=== PATIENT | male | born 1940 | race Hispanic/Latino ===

== ENCOUNTER 2016-10-10 11:50 | Inpatient (IN) | payer MEDICARE, OTHER ==
[2016-10-10 12:16] VITALS: BMI 29.6
[2016-10-10] MEDS ORDERED: Sodium Chloride 0.9% 500 ML IV ONE (12:18)
[2016-10-10] MEDS ORDERED: Morphine 4 mg/ml ISec IVP STA (12:18)
--- NOTE | 2016-10-10 12:21 | ED PDOC ---
Arrival/HPI - General Chief Complaint: Abdominal Pain Time Seen by Provider: 10/10/16 12:08 Historian: Patient - History of Present Illness Narrative History of Present Illness (Text): 10/10/16 12:18 A 76 year old male, whose past medical history includes diabetes, neuropathy, atrial fibrillation and GI bleed, presents to the emergency department complaining of lower abdominal pain for the past 4 days. Patient notes nausea and 1 episode of non-bilious non-bloody vomiting. Patient denies any fever, diarrhea, urinary symptoms, chest pain, shortness of breath or any other complaints. Patient regularly takes Coumadin. PMD: Dr. Cabrera Time/Duration: Other (4 days) Symptom Course: Unchanged Quality: Other Context: Home Associated Symptoms (Text): 10/10/16 13:04 4 day history of right lower quadrant abdominal pain along with anorexia and nausea and one episode of vomiting. Approximately one month ago patient had unrevealing EGD and colonoscopy secondary to rectal bleeding. He had been on xarelto for atrial fibrillation. Switched to Coumadin. Past Medical History - Provider Review Nursing Documentation Reviewed: Yes - Infectious Disease Hx of Infectious Diseases: None - Tetanus Immunization Tetanus Immunization: Unknown - Cardiac Hx Hypertension: Yes Hx Pacemaker: No Other/Comment: cardiac problem - Pulmonary Hx Respiratory Disorders: No - Neurological Hx Paralysis: No - HEENT Hx HEENT Disorder: Yes Hx Cataracts: Yes (BILATERAL SURGERY) - Renal Hx Renal Disorder: No - Endocrine/Metabolic Hx Endocrine Disorders: Yes Hx Diabetes Mellitus Type 1: Yes - Hematological/Oncological Hx Blood Transfusions: Yes (2013) Hx Blood Transfusion Reaction: No - Integumentary Hx Dermatological Disorder: No Other/Comment: ble redness and discolorations - Musculoskeletal/Rheumatological Hx Musculoskeletal Disorders: No - Gastrointestinal Hx Gastrointestinal Disorders: Yes (GI BLEED) Other/Comment: colonoscopy, gi bleed - Genitourinary/Gynecological Hx Genitourinary Disorders: No - Psychiatric Hx Emotional Abuse: No Hx Physical Abuse: No Hx Substance Use: No - Surgical History Other/Comment: right clavical cyst removed - Anesthesia Hx Anesthesia Reactions: No Hx Malignant Hyperthermia: No - Suicidal Assessment Feels Threatened In Home Enviroment: No Family/Social History - Physician Review Nursing Documentation Reviewed: Yes Family/Social History: No Known Family HX Smoking Status: Former Smoker (Quit smoking one year ago) Hx Alcohol Use: Yes (4 DRINKS A WEEK) Hx Substance Use: No Hx Substance Use Treatment: No Allergies/Home Meds Allergies/Adverse Reactions: Allergies No Known Allergies Allergy (Verified 12/28/13 12:16) Home Medications: Home Meds Medication Instructions Recorded Confirmed diltiaZEM CD [Cardizem CD] 240 mg PO DAILY 02/18/13 10/10/16 Losartan [Cozaar] 50 mg PO DAILY 12/28/13 10/10/16 Pioglitazone [Actos] 45 mg PO DAILY 09/15/16 10/10/16 Pravastatin Sodium [Pravachol] 40 mg PO DAILY 09/15/16 10/10/16 Warfarin [Coumadin] 5 mg PO DAILY 09/15/16 10/10/16 glyBURIDE [Glyburide] 5 mg PO TID 09/15/16 10/10/16 Review of Systems - Physician Review All systems were reviewed & negative as marked: Yes - Review of Systems Constitutional: Fatigue. absent: Weight Change, Fevers Respiratory: absent: SOB, Cough, Sputum, Wheezing Cardiovascular: absent: Chest Pain, Palpitations, Syncope Gastrointestinal: Abdominal Pain, Nausea, Vomiting. absent: Diarrhea Genitourinary Male: absent: Dysuria, Frequency, Hematuria, Urinary Output Changes Neurological: absent: Headache, Dizziness Physical Exam Vital Signs Reviewed: Yes Vital Signs Temp Pulse Resp BP Pulse Ox 10/10/16 14:20 97.6 F 78 18 120/62 99 10/10/16 12:07 97.8 F 86 21 113/59 L 99 10/10/16 12:06 97.6 F 103 H 18 113/59 L 99 Temperature: Afebrile Blood Pressure: Normal Pulse: Regular Respiratory Rate: Normal Appearance: Positive for: Well-Appearing, Non-Toxic, Uncomfortable Pain Distress: Mild Mental Status: Positive for: Alert and Oriented X 3 Finger Stick Blood Glucose: 178 - Systems Exam Head: Present: Atraumatic, Normocephalic Pupils: Present: PERRL Extroacular Muscles: Present: EOMI Conjunctiva: Present: Normal Mouth: Present: Moist Mucous Membranes Pharnyx: No: ERYTHEMA, EXUDATE, TONSILS ENLARGED Respiratory/Chest: Present: Clear to Auscultation, Good Air Exchange. No: Respiratory Distress, Accessory Muscle Use Cardiovascular: Present: Normal S1, S2, Irregular Rhythm, Other (Normal rate). No: Murmurs Abdomen: Present: Tenderness (Mild RLQ tenderness), Normal Bowel Sounds, Guarding (Voluntary guarding). No: Distention, Peritoneal Signs, Rebound Upper Extremity: Present: Normal Inspection. No: Cyanosis, Edema Lower Extremity: Present: Normal Inspection. No: Edema Neurological: Present: GCS=15, CN II-XII Intact, Speech Normal, Motor Func Grossly Intact Skin: Present: Warm, Dry, Normal Color. No: Rashes Psychiatric: Present: Alert, Oriented x 3, Normal Insight, Normal Concentration Medical Decision Making ED Course and Treatment: 10/10/16 12:18 Impression: A 76 year old male with lower abdominal pain. Patient notes nausea and 1 episode of vomiting. On exam, mild RLQ tenderness. Plan: -- Abdomen and pelvis CT -- Chest xray -- EKG -- Labs -- Urinalysis -- Morphine, IV fluids and Zofran -- Reassess and disposition Progress Notes: 10/10/16 13:06 EKG shows atrial fibrillation rate approximately 80 with a right bundle branch block which is old when compared with EKG of 04/25/2015 Report Date : 10/10/2016 13:48:12 PROCEDURE: CT Abdomen and Pelvis without intravenous contrast Dictator : Young Keller MD IMPRESSION: Acute appendicitis. Small bowel dilatation most likely due to ileus Report Date : 10/10/2016 13:57:57 Procedure: Chest xray Dictator : Renea Tamayo MD IMPRESSION: No active pulmonary disease. Persistent cardiomegaly. 10/10/16 14:01 Dr. Jaramillo requests PMD admit. - Lab Interpretations Lab Results: 10/10/16 12:22 10/10/16 12:22 Lab Results 10/10/16 12:22: WBC 10.2 D, RBC 3.63, Hgb 10.8 L, Hct 31.7 L, MCV 87.3, MCH 29.8, MCHC 34.1, RDW 14.1, Plt Count 404, MPV 9.8, Gran % 85.4 H, Lymph % (Auto ) 6.1 L, [place] % (Auto) 8.1 H, Eos % (Auto) 0.3 L, Baso % (Auto) 0.1, Gran # 8.69 H, Lymph # 0.6 L, [place] # 0.8 H, Eos # 0.0, Baso # 0.01, PT 32.6 H*, INR 3.02 H, APTT 51.7 H, Sodium 136, Potassium 3.9, Chloride 99, Carbon Dioxide 23, Anion Gap 18, BUN 91 H, Creatinine 4.6 H, Est GFR ( Amer) 15, Est GFR ( Non-Af Amer) 12, Random Glucose 167 H, Calcium 8.9, Total Bilirubin 0.9, AST 57 , ALT 31, Alkaline Phosphatase 90, Lactate Dehydrogenase 558, Total Creatine Kinase 493 H, CK-MB (CK-2) 8.3 H, CK-MB (CK-2) % 1.7 L, Troponin I 0.03 D, Total Protein 7.6, Albumin 3.6, Globulin 4.0, Albumin/Globulin Ratio 0.9 L, Amylase 37, Lipase 62 10/10/16 11:59: POC Glucose (mg/dL) 178 H I have reviewed the lab results: Yes - RAD Interpretation Radiology Orders: 10/10/16 12:16 ABD & PELVIS W/O PO OR IV CONT [CT] Stat 10/10/16 12:17 CHEST PORTABLE [RAD] Stat Chest one view shows cardiomegaly with increased markings. Channel Sales Manager: ED Physician - Medication Orders Current Medication Orders: Ampicillin Sodium/Sulbactam (Sodium 3 gm/ Sodium Chloride) 100 mls @ 100 mls/ hr IVPB STAT STA PRN Reason: Protocol Stop: 10/10/16 14:58 Discontinued Medications Sodium Chloride (Sodium Chloride 0.9%) 500 mls @ 500 mls/hr IV ONCE ONE Stop: 10/10/16 13:17 Last Admin: 10/10/16 12:34 Dose: 500 MLS/HR eMAR Start Stop Document 10/10/16 12:34 OCS (Rec: 10/10/16 12:34 OCS [id number]) Intravenous Solution Start Date 10/10/16 Start Time 12:34 Morphine Sulfate (Morphine) 4 mg IVP STAT STA Stop: 10/10/16 12:19 Last Admin: 10/10/16 12:34 Dose: 4 MG MAR Pain Assessment Document 10/10/16 12:34 OCS (Rec: 10/10/16 12:34 OCS [id number]) Pain Reassessment Is this a pain reassessment? Yes Presence of Pain Presence of Pain Yes Pain Scale Used Pain Scale Used Numeric Location Pain Location Body Site Abdomen Description Description Constant IVP Administration Document 10/10/16 12:34 OCS (Rec: 10/10/16 12:34 [id number] Charges for Administration # of IVP Administrations 1 Ondansetron HCl (Zofran Inj) 4 mg IVP ONCE ONE Stop: 10/10/16 12:19 Last Admin: 10/10/16 12:34 Dose: Not Given Non-Admin Reason: Patient Refused IVP Administration Document 10/10/16 12:34 OCS (Rec: 10/10/16 12:34 [id number]) Charges for Administration # of IVP Administrations 1 - Scribe Statement The provider has reviewed the documentation as recorded by the Eduardoibkatie Galvan Provider Scribe Attestation: All medical record entries made by the Scribe were at my direction and personally dictated by me. I have reviewed the chart and agree that the record accurately reflects my personal performance of the history, physical exam, medical decision making, and the department course for this patient. I have also personally directed, reviewed, and agree with the discharge instructions and disposition. Disposition/Present on Arrival - Present on Arrival Any Indicators Present on Arrival: No History of DVT/PE: No History of Uncontrolled Diabetes: No Urinary Catheter: No History of Decub. Ulcer: No History Surgical Site Infection Following: None - Disposition Have Diagnosis and Disposition been Completed?: Yes Diagnosis: Acute appendicitis, Renal failure, Dehydration, Coagulopathy Disposition: HOSPITALIZED Disposition Time: 14:01 Patient Plan: Admission Patient Problems: Current Active Problems Problem Status Diagnosed Acute appendicitis Acute Coagulopathy Acute Dehydration Acute Renal failure Acute Condition: SERIOUS Referrals: Paris Goyal MD [Primary Care Provider] - Follow up with primary
[2016-10-10 12:44] LABS: ADD MANUAL DIFF? NO
[2016-10-10 12:52] LABS: BASO # 0.01 K/mm3 (0.0-2.0); BASO % 0.1 % (0.0-3.0); EOS % 0.3 % (1.5-5.0); GRAN # 8.69 (1.4-6.5); GRAN % 85.4 % (50.0-68.0); HEMATOCRIT 31.7 % (42.0-52.0); LYMPH # 0.6 (1.2-3.4); LYMPH % 6.1 % (22.0-35.0); MEAN CELL VOLUME 87.3 fL (80.0-105.0); MEAN CORPUSCULAR HEMOGLOBIN 29.8 pg (25.0-35.0); MEAN CORPUSCULAR HGB CONC 34.1 g/dl (31.0-37.0); MEAN PLATELET VOLUME 9.8 fl (7.0-11.0); MONO # 0.8 (0.1-0.6); MONO % 8.1 % (1.0-6.0); PLATELET COUNT 404 10^3/uL (120.0-450.0); RED CELL DISTRIBUTION WIDTH 14.1 % (11.5-14.5); WHITE BLOOD COUNT 10.2 10^3/ul (4.5-11.0)
[2016-10-10 13:01] LABS: ALB/GLOB RATIO 0.9 (1.1-1.8); BILIRUBIN,TOTAL 0.9 mg/dL (0.2-1.3); CALCIUM 8.9 mg/dL (8.4-10.5); INR 3.02 (0.93-1.08); PARTIAL THROMBOPLASTIN TIME 51.7 Seconds (23.7-30.8); POTASSIUM 3.9 mmol/L (3.6-5.0); TOTAL PROTEIN 7.6 g/dL (5.8-8.3)
[2016-10-10 13:10] LABS: TROPONIN I 0.03 ng/mL
--- NOTE | 2016-10-10 13:50 | CT ---
PROCEDURE: CT Abdomen and Pelvis without intravenous contrast HISTORY: RLQ pain COMPARISON: None. TECHNIQUE: Without contrast. Contrast Dose: Radiation dose: Total exam DLP = 977 mGy-cm. FINDINGS: LOWER THORAX: Unremarkable. LIVER: Unremarkable. No gross lesion or ductal dilatation. GALLBLADDER AND BILE DUCTS: Unremarkable. PANCREAS: Unremarkable. No gross lesion or ductal dilatation. SPLEEN: Unremarkable. ADRENALS: Unremarkable. No mass. KIDNEYS AND URETERS: There is an 18 mm stone in the upper pole of the right kidney. There is a large cyst in the left kidney. No evidence of hydronephrosis VASCULATURE: Unremarkable. No aortic aneurysm. BOWEL: Multiple mildly dilated fluid-filled loops of small bowel are seen which probably represent an ileus related to the inflammation in the right lower quadrant secondary to appendicitis APPENDIX: The appendix is dilated and there are severe inflammatory changes surrounding the appendix optometric assistant with acute appendicitis. There is no evidence of abscess. PERITONEUM: Unremarkable. No free fluid. No free air. LYMPH NODES: Unremarkable. No enlarged lymph nodes. BLADDER: Unremarkable. REPRODUCTIVE: Unremarkable. BONES: No acute fracture. OTHER FINDINGS: None. IMPRESSION: Acute appendicitis. Small bowel dilatation most likely due to ileus
[2016-10-10] MEDS ORDERED: Ampicillin/Sulbactam 3 GM in Sodium Chloride 0.9% 100 ML IVPB STA (13:59)
--- NOTE | 2016-10-10 13:59 | RAD ---
HISTORY: ap COMPARISON: 04/25/2015 FINDINGS: LUNGS: The lungs are clear. There is linear scarring in the right mid lung. PLEURA: No significant pleural effusion identified, no pneumothorax apparent. CARDIOVASCULAR: The heart is enlarged. Atherosclerotic aortic arch calcifications are present. . OSSEOUS STRUCTURES: No significant abnormalities. VISUALIZED UPPER ABDOMEN: Normal. OTHER FINDINGS: None. IMPRESSION: No active pulmonary disease. Persistent cardiomegaly.
--- NOTE | 2016-10-10 15:02 | CP.PCM.CON ---
History of Present Illness - History of Present Illness History of Present Illness: SURGERY CONSULT NOTE FOR DR. STANTON 76M present to [place] [facility] with abdominal pain. Patient states pain started on Thursday and has been increasing in severity. He describes it has a bad cramp mainly located in the right lower quadrant. Pain does not radiate anywhere. He has never had this type of pain before. He states it is associated with nausea and one bout of non bilious/non bloody vomiting. Patient admits to a lot of diarrhea which occurred yesterday. He admits to note having solid food to eat since Thursday. PMH: A-fib, KILLIAN, Diverticulitis, GI bleed, Anemia, Cecal AVM PSH: sebaceous cyst removal, Colonoscopy Social: quit tobacco two years ago, social alcohol, denies illicit drugs Allergies: NKDA Past Patient History - Infectious Disease Hx of Infectious Diseases: None - Tetanus Immunizations Tetanus Immunization: Unknown - Past Social History Smoking Status: Former Smoker (Quit smoking one year ago) - CARDIAC Hx Hypertension: Yes Hx Pacemaker: No Other/Comment: cardiac problem - PULMONARY Hx Respiratory Disorders: No - NEUROLOGICAL Hx Paralysis: No - HEENT Hx HEENT Problems: Yes Hx Cataracts: Yes (BILATERAL SURGERY) - RENAL Hx Chronic Kidney Disease: No - ENDOCRINE/METABOLIC Hx Endocrine Disorders: Yes Hx Diabetes Mellitus Type 1: Yes - HEMATOLOGICAL/ONCOLOGICAL Hx Blood Transfusions: Yes (2013) Hx Blood Transfusion Reaction: No - INTEGUMENTARY Hx Dermatological Problems: No Other/Comment: ble redness and discolorations - MUSCULOSKELETAL/RHEUMATOLOGICAL Hx Musculoskeletal Disorders: No - GASTROINTESTINAL Hx Gastrointestinal Disorders: Yes (GI BLEED) Other/Comment: colonoscopy, gi bleed - GENITOURINARY/GYNECOLOGICAL Hx Genitourinary Disorders: No - PSYCHIATRIC Hx Emotional Abuse: No Hx Physical Abuse: No Hx Substance Use: No - SURGICAL HISTORY Other/Comment: right clavical cyst removed - ANESTHESIA Hx Anesthesia Reactions: No Hx Malignant Hyperthermia: No Meds Allergies/Adverse Reactions: Allergies Allergy/AdvReac Type Severity Reaction Status Date / Time No Known Allergies Allergy Verified 12/28/13 12:16 - Medications Medications: Current Medications Ampicillin Sodium/Sulbactam (Sodium 3 gm/ Sodium Chloride) 100 mls @ 100 mls/ hr IVPB STAT STA PRN Reason: Protocol Stop: 10/10/16 14:58 Physical Exam - Constitutional Appears: Non-toxic, No Acute Distress - Head Exam Head Exam: ATRAUMATIC - Eye Exam Eye Exam: EOMI, PERRL Pupil Exam: PERRL - ENT Exam ENT Exam: Mucous Membranes Moist - Respiratory Exam Respiratory Exam: Clear to Auscultation Bilateral, NORMAL BREATHING PATTERN - Cardiovascular Exam Cardiovascular Exam: REGULAR RHYTHM, +S1, +S2 - GI/Abdominal Exam GI & Abdominal Exam: Guarding, Soft, Tenderness. absent: Distended, Firm, Rebound, Rigid Additional comments: Tenderness on palpation of right lower quadrant of abdomen - Extremities Exam Additional comments: decrease b/l lower extremity sensation - Neurological Exam Neurological exam: Alert, Oriented x3 - Psychiatric Exam Psychiatric exam: Normal Affect, Normal Mood - Skin Skin Exam: Dry, Intact, Normal Color, Warm Results - Vital Signs Recent Vital Signs: Last Vital Signs Temp 97.6 F 10/10/16 14:20 Pulse 78 10/10/16 14:20 Resp 18 10/10/16 14:20 BP 120/62 10/10/16 14:20 Pulse Ox 99 10/10/16 14:20 - Labs Result Diagrams: 10/13/16 06:30 10/13/16 06:30 Labs: Laboratory Results - last 24 hr 10/10/16 10/10/16 11:59 12:22 WBC 10.2 D RBC 3.63 Hgb 10.8 L Hct 31.7 L MCV 87.3 MCH 29.8 MCHC 34.1 RDW 14.1 Plt Count 404 MPV 9.8 Gran % 85.4 H Lymph % (Auto) 6.1 L [place] % (Auto) 8.1 H Eos % (Auto) 0.3 L Baso % (Auto) 0.1 Gran # 8.69 H Lymph # 0.6 L [place] # 0.8 H Eos # 0.0 Baso # 0.01 PT 32.6 H* INR 3.02 H APTT 51.7 H Sodium 136 Potassium 3.9 Chloride 99 Carbon Dioxide 23 Anion Gap 18 BUN 91 H Creatinine 4.6 H Est GFR ( Amer) 15 Est GFR (Non-Af Amer) 12 POC Glucose (mg/dL) 178 H Random Glucose 167 H Calcium 8.9 Total Bilirubin 0.9 AST 57 ALT 31 Alkaline Phosphatase 90 Lactate Dehydrogenase 558 Total Creatine Kinase 493 H CK-MB (CK-2) 8.3 H CK-MB (CK-2) % 1.7 L Troponin I 0.03 D Total Protein 7.6 Albumin 3.6 Globulin 4.0 Albumin/Globulin Ratio 0.9 L Amylase 37 Lipase 62 Assessment & Plan - Assessment and Plan (Free Text) Assessment: 76M presents with abdominal pain 2/[address]: acute appendicitis, possible ileus Plan: - NPO, IVF - pain control, antibiotics, anti-pyretic, anti-emetics - Reverse Coumadin effects, INR currently 3.02 - Plan for OR tomorrow Further recs discuss with Dr. Clint Davis, PGY1
[2016-10-10] MEDS: Sodium Chloride 0.9% 1,000 ML IV SCH (16:18)
--- NOTE | 2016-10-10 16:43 | CP.PCM.HP ---
<Dwight Streeter - Last Filed: 10/10/16 17:35> History of Present Illness - History of Present Illness History of Present Illness: CC: "Severe lower abdominal pain, nausea" HPI: Pt is a 76 year old male with a PMHx of diabetes mellitus, gastritis, peripheral neuropathy, foot drop, atrial fibrillation, diverticulosis, dyslipidemia, HTN, prostate cancer, hemorrhoids, and cecal arteriovenous malformation who presented to the ED with complaints of severe, diffuse lower abdominal pain particularly in the right lower quadrant for a duration of 4 days. Pt also reports that he vomited yesterday and has been having diarrhea. Pt is accompanied at bedside by son and daughter. Pt also reports that he has been experiencing chills over the past week. Pt reports that he has not had an appetite and thus has not been eating. He reports that he has been drinking water. He also reports that on Thursday he was in the bathroom vomiting and fell to his knees and was unable to get up because of his foot drop. He reports that he laid on the floor for about 7 hours that day. He also reports that he recently had a polyp removed by GI, Dr. Goyal, last week. According to the pt , Dr. Goyal advised the pt to decrease his warfarin by half until he sees his PMD, Dr. Corcoran, to adjust the medication to bring INR to therapeutic levels. Pt also reports that he has not urinated since this morning. Pt denies fever, chest pain, shortness of breath, dizziness, headache. PMD: Dr. Corcoran PMHx: Diabetes mellitus, gastritis, peripheral neuropathy, foot drop, atrial fibrillation, diverticulosis, dyslipidemia, HTN, prostate cancer, hemorrhoids, and cecal arteriovenous malformation Home Medications: Cardizem 240 mg po qd, losartan 50 mg po qd, warfarin 5 mg p oqd, pravastatin 40 mg po qd, actos 45 mg po qd, glyburide 5 mg po tid Allergies: NKDA Past Surgical Hx: Anal fissure repair, hemorrhoids Social Hx: former heavy smoker (2-3 packs/day), reports that he quit 2 years ago ; former heavy drinker, reports that he has a few drinks 2 days a week now; denies illicit drug use Family Hx: Diabetes, HTN Present on Admission - Present on Admission Any Indicators Present on Admission: No Review of Systems - Constitutional Constitutional: Chills. absent: Fever - EENT Eyes: absent: Blurred Vision, Change in Vision Ears: absent: Decreased Hearing, Dizziness Nose/Mouth/Throat: Dry Mouth. absent: Nasal Discharge - Cardiovascular Cardiovascular: Irregular Heart Rhythm. absent: Chest Pain, Dyspnea - Respiratory Respiratory: absent: Cough, Dyspnea, Hemoptysis - Gastrointestinal Gastrointestinal: Abdominal Pain, Bloating, Diarrhea, Dyspepsia, Vomiting. absent: Constipation, Dysphagia, Melena - Genitourinary Genitourinary: Difficulty Urinating - Musculoskeletal Musculoskeletal: Abnormal Gait, Muscle Weakness. absent: Tingling - Integumentary Integumentary: absent: Rash, Swelling - Neurological Neurological: absent: Dizziness, Headaches, Syncope - Psychiatric Psychiatric: absent: Anxiety - Hematologic/Lymphatic Hematologic: absent: Easy Bruising Past Patient History - Infectious Disease Hx of Infectious Diseases: None - Tetanus Immunizations Tetanus Immunization: Unknown - Past Social History Smoking Status: Former Smoker (Quit smoking one year ago) - CARDIAC Hx Hypertension: Yes Hx Pacemaker: No Other/Comment: cardiac problem - PULMONARY Hx Respiratory Disorders: No - NEUROLOGICAL Hx Paralysis: No - HEENT Hx HEENT Problems: Yes Hx Cataracts: Yes (BILATERAL SURGERY) - RENAL Hx Chronic Kidney Disease: No - ENDOCRINE/METABOLIC Hx Endocrine Disorders: Yes Hx Diabetes Mellitus Type 1: Yes - HEMATOLOGICAL/ONCOLOGICAL Hx Blood Transfusions: Yes (2013) Hx Blood Transfusion Reaction: No - INTEGUMENTARY Hx Dermatological Problems: No Other/Comment: ble redness and discolorations - MUSCULOSKELETAL/RHEUMATOLOGICAL Hx Musculoskeletal Disorders: No - GASTROINTESTINAL Hx Gastrointestinal Disorders: Yes (GI BLEED) Other/Comment: colonoscopy, gi bleed - GENITOURINARY/GYNECOLOGICAL Hx Genitourinary Disorders: No - PSYCHIATRIC Hx Emotional Abuse: No Hx Physical Abuse: No Hx Substance Use: No - SURGICAL HISTORY Other/Comment: right clavical cyst removed - ANESTHESIA Hx Anesthesia Reactions: No Hx Malignant Hyperthermia: No Meds Allergies/Adverse Reactions: Allergies Allergy/AdvReac Type Severity Reaction Status Date / Time No Known Allergies Allergy Verified 12/28/13 12:16 Physical Exam - Constitutional Appears: No Acute Distress - Head Exam Head Exam: ATRAUMATIC, NORMOCEPHALIC - Eye Exam Eye Exam: EOMI, PERRL Pupil Exam: PERRL - ENT Exam ENT Exam: Mucous Membranes Dry. absent: Mucous Membranes Moist - Neck Exam Neck exam: Positive for: Full Rom. Negative for: Lymphadenopathy - Respiratory Exam Respiratory Exam: Prolonged Expiratory Phase. absent: Rales, Rhonchi, Wheezes - Cardiovascular Exam Cardiovascular Exam: Irregular Rhythm, +S1, +S2. absent: Tachycardia, Gallop, Rubs - GI/Abdominal Exam GI & Abdominal Exam: Firm, Hypoactive Bowel Sounds, Tenderness. absent: Distended, Hernia Additional comments: Right lower quadrant tenderness - Extremities Exam Extremities exam: Negative for: pedal edema - Neurological Exam Neurological exam: Alert, Oriented x3 - Psychiatric Exam Psychiatric exam: Normal Affect, Normal Mood - Skin Skin Exam: Normal Color, Warm Results - Vital Signs Recent Vital Signs: Last Vital Signs Temp 97.6 F 10/10/16 14:20 Pulse 78 10/10/16 14:20 Resp 18 10/10/16 14:20 BP 120/62 10/10/16 14:20 Pulse Ox 99 10/10/16 14:20 - Labs Result Diagrams: 10/10/16 12:22 10/10/16 12:22 Labs: Laboratory Results - last 24 hr 10/10/16 10/10/16 11:59 12:22 WBC 10.2 D RBC 3.63 Hgb 10.8 L Hct 31.7 L MCV 87.3 MCH 29.8 MCHC 34.1 RDW 14.1 Plt Count 404 MPV 9.8 Gran % 85.4 H Lymph % (Auto) 6.1 L [place] % (Auto) 8.1 H Eos % (Auto) 0.3 L Baso % (Auto) 0.1 Gran # 8.69 H Lymph # 0.6 L [place] # 0.8 H Eos # 0.0 Baso # 0.01 PT 32.6 H* INR 3.02 H APTT 51.7 H Sodium 136 Potassium 3.9 Chloride 99 Carbon Dioxide 23 Anion Gap 18 BUN 91 H Creatinine 4.6 H Est GFR ( Amer) 15 Est GFR (Non-Af Amer) 12 POC Glucose (mg/dL) 178 H Random Glucose 167 H Calcium 8.9 Total Bilirubin 0.9 AST 57 ALT 31 Alkaline Phosphatase 90 Lactate Dehydrogenase 558 Total Creatine Kinase 493 H CK-MB (CK-2) 8.3 H CK-MB (CK-2) % 1.7 L Troponin I 0.03 D Total Protein 7.6 Albumin 3.6 Globulin 4.0 Albumin/Globulin Ratio 0.9 L Amylase 37 Lipase 62 Assessment & Plan - Assessment and Plan (Free Text) Assessment: Acute Appendicitis: Afebrile, nontachycardic No leukocytosis Abd/Pelvis CT - acute appendicitis, small bowel dilatation most likely due to ileus (please see full report) Surgery consulted, Dr. Jaramillo, help appreciated. Pt made NPO Rocephin 1 gm IV qd Flagyl IV q8h NS IVF 125 cc/hr 2 units of FFP ordered as per surgery due to supratherapeutic INR Vitamin K 10 mg IV once Zofran 4 mg IB q4h prn for nausea Morphine 4 mg IVP q4h prn for pain Tylenol 650 mg po q6h prn for fever > 100.4 Cardiology, Dr. Smith, consulted. Help appreciated. Cardiac clearance pending Laparoscopic appendectomy with possibility of open appendectomy planned for tomorrow Coagulopathy: INR -3.02 PT- 32.6 APTT - 51.7 Vitamin K and FFP given Recheck Coag panel tomorrow Coumadin held Acute on Chronic Kidney Injury: Bun/Cr: 91/4.6, increased from baseline and previous admission NS IVF 125 cc/hr Nephrology, Dr. Jin, consulted. Help appreciated. CK - 493 Bladder scan pending Losartan held Diabetes Mellitus: Oral medications held Regular insulin sliding scale Accuchecks Hx of atrial fibrillation: EKG - atrial fibrillation, right bundle branch block Cardizem 240 mg po qd Dyslipidemia: Lipitor 10 mg po din HTN: Losartan held due to acute kidney injury Prophylactic Measures: GI: Protonix 40 mg IV qd DVT: SCDs <Liya Wahl B - Last Filed: 10/11/16 15:24> Results - Vital Signs Recent Vital Signs: Last Vital Signs Temp 99.1 F 10/11/16 13:00 Pulse 83 10/11/16 13:30 Resp 14 10/11/16 13:30 BP 143/55 L 10/11/16 13:30 Pulse Ox 94 L 10/11/16 12:45 - Labs Result Diagrams: 10/11/16 07:45 10/11/16 07:15 Labs: Laboratory Results - last 24 hr 10/10/16 10/10/16 10/10/16 16:37 18:48 22:06 WBC RBC Hgb Hct MCV MCH MCHC RDW Plt Count MPV Gran % Lymph % (Auto) [place] % (Auto) Eos % (Auto) Baso % (Auto) Gran # Lymph # [place] # Eos # Baso # PT INR APTT Sodium Potassium Chloride Carbon Dioxide Anion Gap BUN Creatinine Est GFR ( Amer) Est GFR (Non-Af Amer) POC Glucose (mg/dL) 121 H 44 L Random Glucose Calcium Phosphorus Magnesium Urine Color Urine Appearance Urine pH Ur Specific [place] Urine Protein Urine Glucose (UA) Urine Ketones Urine Blood Urine Nitrate Urine Bilirubin Urine Urobilinogen Ur Leukocyte Esterase Urine RBC Urine WBC Ur Epithelial Cells Urine Bacteria Blood Type AB POSITIVE Antibody Screen Negative BBK History Checked Patient has bt 10/10/16 10/11/16 10/11/16 22:47 00:15 06:38 WBC RBC Hgb Hct MCV MCH MCHC RDW Plt Count MPV Gran % Lymph % (Auto) [place] % (Auto) Eos % (Auto) Baso % (Auto) Gran # Lymph # [place] # Eos # Baso # PT INR APTT Sodium Potassium Chloride Carbon Dioxide Anion Gap BUN Creatinine Est GFR ( Amer) Est GFR (Non-Af Amer) POC Glucose (mg/dL) 167 H Random Glucose Calcium Phosphorus 3.9 Magnesium 2.1 Urine Color Yellow Urine Appearance Clear Urine pH 6.0 Ur Specific [place] 1.020 Urine Protein Trace H Urine Glucose (UA) Negative Urine Ketones Negative Urine Blood Moderate H Urine Nitrate Negative Urine Bilirubin Negative Urine Urobilinogen 0.2 Ur Leukocyte Esterase Negative Urine RBC 2 - 5 Urine WBC 0 - 2 Ur Epithelial Cells 0 - 2 Urine Bacteria Small Blood Type Antibody Screen BBK History Checked 10/11/16 10/11/16 10/11/16 07:15 07:21 07:45 WBC 7.0 D RBC 3.16 L Hgb 9.6 L Hct 27.9 L MCV 88.3 MCH 30.4 MCHC 34.4 RDW 14.2 Plt Count 358 MPV 9.2 Gran % 81.1 H Lymph % (Auto) 8.0 L [place] % (Auto) 9.4 H Eos % (Auto) 1.4 L Baso % (Auto) 0.1 Gran # 5.66 Lymph # 0.6 L [place] # 0.7 H Eos # 0.1 Baso # 0.01 PT 13.3 H INR 1.23 H APTT 35.0 H Sodium 143 Potassium 3.5 L Chloride 110 H Carbon Dioxide 23 Anion Gap 14 BUN 73 H Creatinine 3.3 H Est GFR ( Amer) 22 Est GFR (Non-Af Amer) 18 POC Glucose (mg/dL) 45 L Random Glucose 43 L* D Calcium 8.1 L Phosphorus Magnesium Urine Color Urine Appearance Urine pH Ur Specific [place] Urine Protein Urine Glucose (UA) Urine Ketones Urine Blood Urine Nitrate Urine Bilirubin Urine Urobilinogen Ur Leukocyte Esterase Urine RBC Urine WBC Ur Epithelial Cells Urine Bacteria Blood Type Antibody Screen BBK History Checked 10/11/16 10/11/16 08:21 11:47 WBC RBC Hgb Hct MCV MCH MCHC RDW Plt Count MPV Gran % Lymph % (Auto) [place] % (Auto) Eos % (Auto) Baso % (Auto) Gran # Lymph # [place] # Eos # Baso # PT INR APTT Sodium Potassium Chloride Carbon Dioxide Anion Gap BUN Creatinine Est GFR ( Amer) Est GFR (Non-Af Amer) POC Glucose (mg/dL) 141 H 109 Random Glucose Calcium Phosphorus Magnesium Urine Color Urine Appearance Urine pH Ur Specific [place] Urine Protein Urine Glucose (UA) Urine Ketones Urine Blood Urine Nitrate Urine Bilirubin Urine Urobilinogen Ur Leukocyte Esterase Urine RBC Urine WBC Ur Epithelial Cells Urine Bacteria Blood Type Antibody Screen BBK History Checked Attending/Attestation - Attestation I have personally seen and examined this patient.: Yes I have fully participated in the care of the patient.: Yes I have reviewed all pertinent clinical information: Yes Notes (Text): I have seen and examined patient at bedside with the resident. This is 76 year old male with history of DM-2, gastritis, peripheral neuropathy, foot drop, atrial fibrillation, diverticulosis, dyslipidemia, HTN, prostate cancer, hemorrhoids, cecal AVM, former heavy smoker, anal fissure repair who got admitted for acute appendicitis. Will make patient npo. Start IVF and IV rocephin and flagyl. INR was found to be supratherapeutic. Vitamin K and FFP will be given. Surgery scheduled the patient for OR for tomorrow morning. Also has Acute kidney injury. Will order for urine lytes and consult nephrology. Will hold losartan and oral hypoglycemics. As he has multiple co morbidities, will consult cardiology. Dr Liya Wahl
[2016-10-10] MEDS: metroNIDAZOLE IV 500 mg/100 ml 100 ML IVPB SCH ×2 (16:47→21:32)
[2016-10-10] MEDS: Insulin Reg-MEDIUM-Coverage SC SCH (16:48)
[2016-10-10] MEDS ORDERED: Phytonadione 10 MG in Sodium Chloride 0.9% 50 ML IV ONE (17:13)
[2016-10-10] MEDS: cefTRIAXone 1 gm 100 ML IVPB SCH (17:45)
--- NOTE | 2016-10-10 19:40 | US ---
Indication: Inability to urinate Urinary bladder only/residual urine ultrasound Comparison: CT of the abdomen and pelvis performed 10/10/16 Findings: Prevoid urinary bladder measures approximately 9.2 x 8.9 x 9.9 cm, calculated volume 566.3 mL. Postvoid urinary bladder measures approximately 8.2 x 8.5 x 9.0 cm, calculated volume 326.6 mL. Bilateral ureteral jets were not identified. Examination limited due to patient condition and discomfort. Impression: Limited study. Prevoid urinary bladder volume 566.3 mL; postvoid urinary bladder volume 326.6 mL. Bilateral ureteral jets were not identified.
--- NOTE | 2016-10-10 19:44 | CON ---
DATE: 10/10/2016 REASON FOR CONSULTATION: Atrial fibrillation, preoperative evaluation. The patient is a 76-year-old white male from [place] ancestry, who has a history of chronic atrial fibr illation for the past 3 years. Was placed initially on Xarelto, however, because of recurrent rectal bleeding the patient was taken off Xarelto and was placed on Coumadin. The patient is being followe d by his primary physician and has not seen a slurry mixer yet. The patient presents at this time because of abdominal pain, and diagnosis of acute appendicitis was made. The patient did experience nausea, vomiting, and diarrhea, but does not recall fever or chills . The patient denies any history of retrosternal chest pain. The patient is diabetic, and he has ne uropathy with bilateral foot drop. SOCIAL HISTORY: The patient quit smoking 2 years ago. MEDICATIONS: Cardizem CD 240 mg once a day, IV Flagyl 100 mL q. 8 hours, Lipitor 10 mg once a day, m orphine sulfate 4 mg intravenously q. 4 hours p.r.n., Protonix 40 mg intravenously daily, Rocephin 1 g intravenously daily, normal saline at 125 mL an hour. PHYSICAL EXAMINATION: The patient is an elderly male who does not appear to be in acute distress. VITAL SIGNS: Blood pressure 136/62, heart rate 68, temperature 98.1, respirations 22. HENT: Pale conjunctivae. CHEST: Clear. HEART: S1, S2 regular. EXTREMITIES: No pedal edema. LABORATORIES: Hemoglobin and hematocrit 10.8 and 31.7, white count and platelet count are within nor mal limits. SMA-7: Sodium 136, potassium 3.9, chloride 99, CO2 of 23, glucose 167, BUN 91, creatini ne 4.6. One set of troponin 0.03. Lipase is within normal limits. INR is 3.02. EKG revealed atrial fibrillation, PVCs versus aberrancy, right bundle branch block. An echocardiogra [facility] study in 12/2013 reported mild LVH with normal systolic function and mild sclerotic aortic valve . Abdomen and pelvis CT scan done while the patient in the Emergency Room revealed acute appendicitis, small bowel dilatation, most likely due to ileus. ASSESSMENT: 1. Chronic atrial fibrillation. 2. Acute appendicitis with ileus. 3. History of worsening of renal insufficiency. 4. Uncontrolled diabetes mellitus. 5. Peripheral neuropathy with bilateral foot drop. RECOMMENDATIONS: Continue Cardizem CD at 240 mg once a day, continue IV Rocephin and IV Flagyl, cont inue Lipitor at 10 mg once a day. The case was discussed with the surgeon, Dr. Jaramillo, and with the hospitalist, Dr. Wahl. The patien t will receive fresh frozen plasma and will undergo abdominal surgery tomorrow morning. In the meant sabino, the patient will be observed on telemetry. Repeat BMP will be obtained in a.m. and the patient will be kept on IV hydration. Anderson Smith MD cc: [id number] TT: 10/10/2016 19:43:31 Confirmation # [id number] Dictation # [id number] jn
[2016-10-10] MEDS ORDERED: Dextrose 50% SYRINGE Inj (50 ml) IVP ONE (22:15)
[2016-10-11] MEDS: Morphine 4 mg/ml ISec IVP PRN ×2 (00:36→15:24)
[2016-10-11 00:47] LABS: URINE BILIRUBIN NEGATIVE (NEGATIVE); URINE BLOOD MODERATE (NEGATIVE); URINE GLUCOSE (UA) NEGATIVE (NEGATIVE); URINE KETONE NEGATIVE (NEGATIVE); URINE LEUKOCYTE ESTERASE NEGATIVE Leu/uL (NEGATIVE); URINE PROTEIN TRACE mg/dL (<30 mg/dL); URINE UROBILINOGEN 0.2 E.U./dL (<1 E.U./dL)
[2016-10-11 00:53] LABS: URINE APPEARANCE CLEAR (CLEAR); URINE COLOR YELLOW (YELLOW)
[2016-10-11 03:30] LABS: URINE EPITHELIAL CELLS 0 - 2 /hpf (0-5); URINE WBC 0 - 2 /hpf (0-6)
[2016-10-11 03:31] LABS: URINE BACTERIA SMALL (NEG)
[2016-10-11] MEDS: metroNIDAZOLE IV 500 mg/100 ml 100 ML IVPB SCH ×3 (06:47→21:40)
[2016-10-11] MEDS ORDERED: Dextrose 50% SYRINGE Inj (50 ml) IVP STA (07:28)
[2016-10-11 07:33] LABS: INR 1.23 (0.93-1.08)
[2016-10-11 07:44] LABS: CALCIUM 8.1 mg/dL (8.4-10.5); POTASSIUM 3.5 mmol/L (3.6-5.0)
[2016-10-11] MEDS: Insulin Reg-MEDIUM-Coverage SC SCH ×5 (08:10→23:34)
[2016-10-11 08:35] LABS: MAGNESIUM 2.1 mg/dL (1.7-2.2); PHOSPHOROUS 3.9 mg/dL (2.5-4.5)
--- NOTE | 2016-10-11 08:36 | CON ---
DATE: 10/10/2016 HISTORY OF PRESENT ILLNESS: This patient was seen and evaluated earlier. This 76-year-old patient with a past medical history of diabetes mellitus, coronary artery disease, CVA, history of atrial fibrillation on anticoagulation on Coumadin, recently had an upper GI endoscopy and colonoscopy done for gastrointestinal bleeding, history of colonic polyps, diverticulosis, history of angiodysplasia, peptic ulcer disease. This patient's daughter called me earlier regarding his complaints of pain in the abdomen for 3 days. The patient was advised to go to the Emergency Room. He was found to have an acute appendicitis clinically and by CAT scan findings. The patient also found to have worsening of the renal function. GI consultation was requested to evaluate abdominal pain , He said his abdominal pain is slightly better. Other past medical history is as above. SOCIAL HISTORY: denies smoking, drinks alcohol socially. PHYSICAL EXAMINATION: GENERAL: The patient is lying on the bed, not in acute distress. VITAL SIGNS: Pulse 68 minute, respirations 22. The blood pressure is 130/62. HEENT: Atraumatic, anicteric. NECK: Supple. HEART: S1, S2 heard. LUNGS: Bilateral air entry present. ABDOMEN: Soft. There is no mass palpable. tenderness RLQ guarding present EXTREMITIES: No edema. NEUROLOGIC: Alert, oriented. Moves all the extremities. LABORATORY DATA: Hemoglobin 10.8, hematocrit 31.7, WBC count is 10.2. Renal function showed a BUN 91, creatinine 4.6. CAT scan suggestive of acute appendicitis. INR is 3. IMPRESSION: This 76-year-old patient with diabetes mellitus, hypertension, coronary artery disease, status post Coumadin, elevated INR, admitted with abdominal pain, possibility of appendicitis, CT scan was also reviewed by me also. The patient is scheduled for surgery tomorrow. RECOMMENDATIONS: At the present time recommendation is to continue the antibiotics, correction of coagulopathy, surgical followup for appendicectomy , close followup of the hemoglobin and hematocrit. Thank you very much for allowing us to participate in the care of the patient. Paris Goyal MD cc: [id number] TT: 10/11/2016 08:36:20 Confirmation # [id number] Dictation # [id number] john MTDD
[2016-10-11 08:37] LABS: ADD MANUAL DIFF? NO
[2016-10-11 08:46] LABS: BASO # 0.01 K/mm3 (0.0-2.0); BASO % 0.1 % (0.0-3.0); EOS # 0.1 (0.0-0.7); EOS % 1.4 % (1.5-5.0); GRAN # 5.66 (1.4-6.5); GRAN % 81.1 % (50.0-68.0); HEMATOCRIT 27.9 % (42.0-52.0); LYMPH # 0.6 (1.2-3.4); MEAN CELL VOLUME 88.3 fL (80.0-105.0); MEAN CORPUSCULAR HEMOGLOBIN 30.4 pg (25.0-35.0); MEAN CORPUSCULAR HGB CONC 34.4 g/dl (31.0-37.0); MEAN PLATELET VOLUME 9.2 fl (7.0-11.0); MONO # 0.7 (0.1-0.6); MONO % 9.4 % (1.0-6.0); PLATELET COUNT 358 10^3/uL (120.0-450.0); RED CELL DISTRIBUTION WIDTH 14.2 % (11.5-14.5)
--- NOTE | 2016-10-11 09:41 | CARD ---
APPROVED REPORT EKG Measurement Heart [id number] <Conclusion> Atrial fibrillation with premature ventricular or aberrantly conducted complexes Right bundle branch block Q in 3 No change except faster rate c/w ECG 04/25/15
[2016-10-11] MEDS ORDERED: Propofol 10 mg/ml Inj (20 ML) ONE (09:50)
[2016-10-11] MEDS ORDERED: Etomidate 20 mg/10ml Inj IV ONE (09:51)
[2016-10-11] MEDS ORDERED: Rocuronium 10 mg/ml (5 ml) ONE (09:51)
[2016-10-11] MEDS ORDERED: Succinylcholine 200 mg/10 ml Inj IV ONE (09:51)
[2016-10-11] MEDS ORDERED: Bupivacaine 0.5% Inj(30mL) ONE (09:53)
[2016-10-11] MEDS ORDERED: Lidocaine 1% Inj (20ml) ONE (09:58)
[2016-10-11] MEDS ORDERED: Neostigmine Methylsulfate 3mg/3ml Syringe IV ONE (10:36)
[2016-10-11] MEDS ORDERED: Oxychlorosene Topical 2 gm Packet TOP ONE (10:45)
[2016-10-11] MEDS: HYDROmorphone 0.5 mg/0.5 ml ISec IVP PRN ×5 (11:25→23:04)
[2016-10-11] MEDS ORDERED: HYDROmorphone 1 mg/ml ISec ONE (11:38)
--- NOTE | 2016-10-11 11:40 | PCM.SURG1 ---
Surgeon's Initial Post Op Note - Surgeon's Notes Surgeon: Dr. Jaramillo [employer] Driver: Anu Francois, PGY1 Type of Anesthesia: General Endo Pre-Operative Diagnosis: Acute appendicitis Operative Findings: see full report Post-Operative Diagnosis: Perforated acute appendicitis Operation Performed: Laparoscopic appendicitis Specimen/Specimens Removed: Abdominal Culture, appendix Estimated Blood Loss: EBL {In ML}: 30 Date of Surgery/Procedure: 10/11/16 Time of Surgery/Procedure: 09:30
[2016-10-11] MEDS ORDERED: Lactated Ringer's 1,000 ML IV SCH (11:45)
[2016-10-11] MEDS ORDERED: HYDROmorphone 0.5 mg/0.5 ml ISec ONE ×2 (12:06→12:23)
[2016-10-11] MEDS ORDERED: HYDROmorphone 0.5 mg/0.5 ml ISec IVP ONE (12:30)
[2016-10-11] MEDS ORDERED: cefTRIAXone 1 gm 100 ML IVPB SCH (13:30)
[2016-10-11] MEDS: Sodium Chloride 0.9% 1,000 ML IV SCH (15:00)
[2016-10-11] MEDS: cefTRIAXone 1 gm 100 ML IVPB SCH (15:01)
[2016-10-11] MEDS: diltiaZEM 240 mg/24 Hours CD Cap PO SCH (15:23)
--- NOTE | 2016-10-11 15:41 | PN ---
DATE: 10/11/2016 The patient underwent appendectomy for a ruptured appendicitis. Laparoscopy was attempted first, but then the patient underwent open appendectomy. He is currently alert, awake, oriented. He denies any chest pain. VITAL SIGNS: Blood pressure 143/55, heart rate 83, temperature 99.1, respirations 14. HENT: Pale conjunctivae. CHEST: Clear. HEART: S1, S2 regular. EXTREMITIES: No edema. LABORATORIES: Hemoglobin and hematocrit 9.6 and 27.9, white count and platelet count are within norm al limits. SMA-7 this morning preop sodium 143, potassium 3.5, chloride 110, CO2 of 23, glucose 43, BUN 73, creatinine 3.3. The most recent Accu-Chek. 11:47 a.m. was 109. ASSESSMENT: 1. Status post open appendectomy for ruptured appendicitis. 2. Chronic atrial fibrillation. 3. Advanced renal insufficiency. 4. Borderline hypokalemia. RECOMMENDATIONS: Continue current intravenous hydration. Continue IV Flagyl and IV Rocephin, as wel l as IV Protonix. I will obtain 12-lead EKG, and repeat BNP postoperatively. Anderson Smith MD cc: [id number] TT: 10/11/2016 15:40:35 Confirmation # [id number] Dictation # [id number] jn
--- NOTE | 2016-10-11 16:29 | OP ---
PROCEDURE DATE: 10/11/2016 PREOPERATIVE DIAGNOSIS: Acute appendicitis. POSTOPERATIVE DIAGNOSES: Acute appendicitis with abscess and perforation. SURGEON: Dr. Jaramillo. DISTRIBUTION LINEMAN: Dr. Francois. DESCRIPTION OF PROCEDURE: In the operating room, the patient was identified by name, number, procedu re, laterality, my alli and the patient's name, number and wrist band. A laparoscopy was performed a fter the successful timeout with a Veress needle and a supraumbilical incision. The abdomen was ente red with the Veress needle with the opening pressure of 2. The Visiport was placed and the operation proceeded. A suprapubic 5-mm was placed without issue and peeling down the small bowel that was leslie ck to the area, the abscess was entered and it was aspirated and cultured. Circumferential dissectio n failed to reveal the appendix with the tremendous inflammation both in the abdominal wall and in th e area, I elected to open. A periumbilical midline incision was made and the abdomen entered. The l ine of [place] was divided laterally. Rolling the cecum towards us we were eventually able to find the appendix, which was embedded in the alfonzo-ileal area. The base of the appendix was identified and ta vianney with a TA-30 clearly seeing mucosa. It was removed in a retrograde manner. Taking the artery wi th the harmonic, it was removed completely. The area was cleaned and dried. The abscess was debride d; cleaned with Clorpactin and a drain was placed. There was no omentum to put into the area. There were some mildly dilated loops of bowel. The incision was closed after the drain was placed in the right lower quadrant after being trimmed. OnQ was placed on either side and the incision was closed with running #1 Novafil looped stitch. The knot was buried and the wound was irrigated, dried, close d with Vicryl and ramon and a [place] was placed. The patient was taken to the recovery room in go od condition after sponge and needle counts were declared correct. Abner Jaramillo MD cc: [id number] TT: 10/11/2016 16:28:56 jose eduardo
--- NOTE | 2016-10-11 17:32 | CP.PCM.PN ---
<Dwight Streeter - Last Filed: 10/11/16 18:02> Subjective - Date & Time of Evaluation Date of Evaluation: 10/11/16 Time of Evaluation: 17:58 - Subjective Subjective: Pt seen and examined. Pt complaining of pain in right lower abdomen. Pt reports that he has not had a bowel movement yet nor is passing gas. Pt denies fever, chills, chest pain, shortness of breath, nausea, and vomiting. Objective - Vital Signs/Intake and Output Vital Signs (last 24 hours): Temp Pulse Resp BP Pulse Ox 99.1 F 83 14 143/55 L 94 L 10/11/16 13:00 10/11/16 13:30 10/11/16 13:30 10/11/16 13:30 10/11/16 12:45 Intake and Output: 10/11/16 10/11/16 06:59 18:59 Intake Total 2100 Output Total 300 Balance 1800 - Medications Medications: Current Medications Acetaminophen (Tylenol 325mg Tab) 650 mg PO Q6H PRN PRN Reason: Fever >100.4 F Atorvastatin Calcium (Lipitor) 10 mg PO DIN [facility] Last Admin: 10/11/16 17:20 Dose: 10 mg Diltiazem HCl (Cardizem Cd) 240 mg PO DAILY [facility] Last Admin: 10/11/16 15:23 Dose: 240 mg Ceftriaxone Sodium (Rocephin 1 Gram Ivpb) 100 mls @ 100 mls/hr IVPB DAILY [facility] PRN Reason: Protocol Last Admin: 10/11/16 15:01 Dose: Not Given Metronidazole (Flagyl) 100 mls @ 100 mls/hr IVPB Q8 [facility] PRN Reason: Protocol Last Admin: 10/11/16 15:23 Dose: 100 mls/hr Dextrose (Dextrose 5% In Water 1000 Ml) 1,000 mls @ 50 mls/hr IV .Q20H [facility] Last Admin: 10/11/16 15:09 Dose: 50 mls/hr Insulin Human Regular (Humulin R Med) 0 units SC ACHS [facility] PRN Reason: Protocol Last Admin: 10/11/16 17:07 Dose: Not Given Morphine Sulfate (Morphine) 4 mg IVP Q4 PRN PRN Reason: Pain, moderate (4-7) Last Admin: 10/11/16 15:24 Dose: 4 mg Ondansetron HCl (Zofran Inj) 4 mg IVP Q4 PRN PRN Reason: Nausea/Vomiting Last Admin: 10/11/16 12:30 Dose: 4 mg Pantoprazole Sodium (Protonix Inj) 40 mg IVP DAILY [facility] Last Admin: 10/11/16 15:24 Dose: 40 mg - Labs Labs: 10/11/16 07:45 10/11/16 07:15 PT 13.3 Seconds (9.9-11.8) H 10/11/16 07:15 INR 1.23 (0.93-1.08) H 10/11/16 07:15 APTT 35.0 Seconds (23.7-30.8) H 10/11/16 07:45 - Constitutional Appears: No Acute Distress - Head Exam Head Exam: ATRAUMATIC, NORMOCEPHALIC - Eye Exam Eye Exam: EOMI, PERRL - ENT Exam ENT Exam: Mucous Membranes Moist. absent: Mucous Membranes Dry - Respiratory Exam Respiratory Exam: Clear to Ausculation Bilateral. absent: Rales, Rhonchi, Wheezes - Cardiovascular Exam Cardiovascular Exam: +S1, +S2. absent: Gallop, Rubs - GI/Abdominal Exam GI & Abdominal Exam: Soft, Tenderness, Hypoactive Bowel Sounds. absent: Distended, Rigid Additional comments: RLQ tenderness - Extremities Exam Extremities Exam: absent: Pedal Edema - Neurological Exam Neurological Exam: Alert, Awake, Oriented x3 - Psychiatric Exam Psychiatric exam: Normal Affect, Normal Mood - Skin Skin Exam: Normal Color, Warm Assessment and Plan - Assessment and Plan (Free Text) Assessment: Acute Appendicitis: Day 0 s/p open appendectomy and debridement of abscess; drain in place with serosanguinous fluid Afebrile, nontachycardic No leukocytosis Abd/Pelvis CT - acute appendicitis, small bowel dilatation most likely due to ileus (please see full report) Surgery consulted, Dr. Jaramillo, help appreciated. Rocephin 1 gm IV qd Flagyl IV q8h D51/2 IVF 50 cc/hr 2 units of FFP ordered prior to surgery due to supratherapeutic INR Vitamin K 10 mg IV once prior to surgery Zofran 4 mg IB q4h prn for nausea Morphine 4 mg IVP q4h prn for pain Tylenol 650 mg po q6h prn for fever > 100.4 Cardiology, Dr. Smith, consulted. Help appreciated. Coagulopathy: INR -1.23 today Vitamin K and FFP given Coumadin held Acute on Chronic Kidney Injury: Bun/Cr: 72/3.3, improving NS IVF 125 cc/hr Nephrology, Dr. Jin, consulted. Help appreciated. CK - 493 Losartan held Diabetes Mellitus: Oral medications held Regular insulin sliding scale Accuchecks Hx of atrial fibrillation: EKG - atrial fibrillation, right bundle branch block Cardizem 240 mg po qd Dyslipidemia: Lipitor 10 mg po din HTN: Losartan held due to acute kidney injury Prophylactic Measures: GI: Protonix 40 mg IV qd DVT: SCDs <Liya Wahl B - Last Filed: 10/12/16 14:56> Objective - Vital Signs/Intake and Output Vital Signs (last 24 hours): Temp Pulse Resp BP Pulse Ox 97.9 F 64 18 139/74 97 10/12/16 12:00 10/12/16 12:00 10/12/16 12:00 10/12/16 12:00 10/12/16 06:00 Intake and Output: 10/12/16 10/12/16 06:59 18:59 Intake Total 980 Output Total 890 Balance 90 - Medications Medications: Current Medications Acetaminophen (Tylenol 325mg Tab) 650 mg PO Q6H PRN PRN Reason: Fever >100.4 F Atorvastatin Calcium (Lipitor) 10 mg PO DIN [facility] Last Admin: 10/11/16 17:20 Dose: 10 mg Diltiazem HCl (Cardizem Cd) 240 mg PO DAILY [facility] Last Admin: 10/12/16 09:31 Dose: 240 mg Heparin Sodium (Porcine) (Heparin) 5,000 units SC Q12 [facility] PRN Reason: Protocol Last Admin: 10/12/16 09:32 Dose: 5,000 units Hydromorphone HCl (Dilaudid) 1 mg IVP Q3H PRN PRN Reason: Pain, moderate (4-7) Last Admin: 10/12/16 10:32 Dose: 1 mg Metronidazole (Flagyl) 100 mls @ 100 mls/hr IVPB Q8 [facility] PRN Reason: Protocol Last Admin: 10/12/16 05:38 Dose: 100 mls/hr Dextrose (Dextrose 5% In Water 1000 Ml) 1,000 mls @ 50 mls/hr IV .Q20H [facility] Last Admin: 10/12/16 12:29 Dose: 50 mls/hr Cefepime HCl (Maxipime 1gm) 100 mls @ 100 mls/hr IVPB Q12 [facility] PRN Reason: Protocol Last Admin: 10/12/16 09:32 Dose: 100 mls/hr Insulin Human Regular (Humulin R Med) 0 units SC ACHS [facility] PRN Reason: Protocol Last Admin: 10/12/16 12:31 Dose: 3 units Ondansetron HCl (Zofran Inj) 4 mg IVP Q4 PRN PRN Reason: Nausea/Vomiting Last Admin: 10/11/16 12:30 Dose: 4 mg Pantoprazole Sodium (Protonix Ec Tab) 40 mg PO ACB [facility] Warfarin Sodium (Coumadin) 2 mg PO 1800 [facility] PRN Reason: Protocol - Labs Labs: 10/12/16 06:59 10/12/16 06:59 PT 13.3 Seconds (9.9-11.8) H 10/11/16 07:15 INR 1.23 (0.93-1.08) H 10/11/16 07:15 APTT 35.0 Seconds (23.7-30.8) H 10/11/16 07:45 Attending/Attestation - Attestation I have personally seen and examined this patient.: Yes I have fully participated in the care of the patient.: Yes I have reviewed all pertinent clinical information, including history, physical exam and plan: Yes Notes (Text): I have seen and examined patient at bedside with the resident. This is 76 year old male with history of DM-2, gastritis, peripheral neuropathy, foot drop, atrial fibrillation, diverticulosis, dyslipidemia, HTN, prostate cancer, hemorrhoids, cecal AVM, former heavy smoker, anal fissure repair who got admitted for acute appendicitis. Patient was taken to OR today and found to have perforated appendicitis and underwent open appendectomy. SUE drain was placed. Patient will remain NPO for now. Will continue rocephin and flagyl. INR is subtherapeutic today. Also has Acute on chronic kidney disease. Urine lytes are pending. Nephro consult pending. Will hold losartan and oral hypoglycemics. Dr Liya Wahl
--- NOTE | 2016-10-11 19:08 | CP.PCM.CON ---
History of Present Illness - History of Present Illness History of Present Illness: Infectious Disease Consultation: October 11, 2016 76 yo male with severe abdominal pain for the past 5 days before his family convinced him to come to the hospital. The patient was found to have appendicitis. Laproscopic appendectomy was attempted but failed when the conditions in the abdomen were noted. The patient was converted into an open appendectomy where he was found to have an ruptured appendix with inflammation of the intestines and adhesion of the tissues within the abdominal cavity. Started on IV antibiotics. Case discussed with Surgery. PMHx: Diabetes mellitus, gastritis, peripheral neuropathy, foot drop, atrial fibrillation, diverticulosis, dyslipidemia, HTN, prostate cancer, hemorrhoids, and cecal arteriovenous malformation PSHx: anal fissure repair, hemorrhoid surgery Allergies: NKDA Social Hx: No illicit drug use. Former heavy EtOH and tobacco use. Social EtOH now. EGD and colonoscopy recently (2 weeks ago). Active Medications Acetaminophen (Tylenol 325mg Tab) 650 mg PO Q6H PRN PRN Reason: Fever >100.4 F Atorvastatin Calcium (Lipitor) 10 mg PO DIN [facility] Last Admin: 10/11/16 17:20 Dose: 10 mg Diltiazem HCl (Cardizem Cd) 240 mg PO DAILY [facility] Last Admin: 10/11/16 15:23 Dose: 240 mg Hydromorphone HCl (Dilaudid) 0.5 mg IVP Q4H PRN PRN Reason: Pain, moderate (4-7) Ceftriaxone Sodium (Rocephin 1 Gram Ivpb) 100 mls @ 100 mls/hr IVPB DAILY [facility] PRN Reason: Protocol Last Admin: 10/11/16 15:01 Dose: Not Given Metronidazole (Flagyl) 100 mls @ 100 mls/hr IVPB Q8 [facility] PRN Reason: Protocol Last Admin: 10/11/16 15:23 Dose: 100 mls/hr Dextrose (Dextrose 5% In Water 1000 Ml) 1,000 mls @ 50 mls/hr IV .Q20H [facility] Last Admin: 10/11/16 15:09 Dose: 50 mls/hr Insulin Human Regular (Humulin R Med) 0 units SC ACHS [facility] PRN Reason: Protocol Last Admin: 10/11/16 17:07 Dose: Not Given Ondansetron HCl (Zofran Inj) 4 mg IVP Q4 PRN PRN Reason: Nausea/Vomiting Last Admin: 10/11/16 12:30 Dose: 4 mg Pantoprazole Sodium (Protonix Inj) 40 mg IVP DAILY [facility] Last Admin: 10/11/16 15:24 Dose: 40 mg Family Hx: Diabetes Mellitus and Hypertension various family members ROS: Abdominal pain. No fevers, chills, nausea, vomiting, diarrhea, headaches, dizziness, chest pain, SOB, melena, hematuria, hematemesis, hematochezia, depression, anxiety. Past Patient History - Infectious Disease Hx of Infectious Diseases: None - Tetanus Immunizations Tetanus Immunization: Unknown - Past Social History Smoking Status: Former Smoker - CARDIAC Hx Hypercholesterolemia: Yes Hx Hypertension: Yes Hx Pacemaker: No Other/Comment: cardiac problem - PULMONARY Hx Respiratory Disorders: No - NEUROLOGICAL Hx Neurological Disorder: No (NEUROPATHY) - HEENT Hx HEENT Problems: Yes Hx Cataracts: Yes (BILATERAL SURGERY) - RENAL Hx Chronic Kidney Disease: No - ENDOCRINE/METABOLIC Hx Endocrine Disorders: Yes Hx Diabetes Mellitus Type 1: Yes - HEMATOLOGICAL/ONCOLOGICAL Hx Blood Transfusions: Yes (2013) Hx Blood Transfusion Reaction: No - INTEGUMENTARY Hx Dermatological Problems: No Other/Comment: ble redness and discolorations - MUSCULOSKELETAL/RHEUMATOLOGICAL Hx Musculoskeletal Disorders: No Hx Falls: Yes - GASTROINTESTINAL Hx Gastrointestinal Disorders: Yes (GI BLEED) Other/Comment: colonoscopy, gi bleed - GENITOURINARY/GYNECOLOGICAL Hx Genitourinary Disorders: No - PSYCHIATRIC Hx Emotional Abuse: No Hx Physical Abuse: No - SURGICAL HISTORY Hx Surgeries: Yes - ANESTHESIA Hx Anesthesia Reactions: No Hx Malignant Hyperthermia: No Meds Allergies/Adverse Reactions: Allergies Allergy/AdvReac Type Severity Reaction Status Date / Time No Known Allergies Allergy Verified 12/28/13 12:16 - Medications Medications: Current Medications Acetaminophen (Tylenol 325mg Tab) 650 mg PO Q6H PRN PRN Reason: Fever >100.4 F Atorvastatin Calcium (Lipitor) 10 mg PO DIN [facility] Last Admin: 10/11/16 17:20 Dose: 10 mg Diltiazem HCl (Cardizem Cd) 240 mg PO DAILY [facility] Last Admin: 10/11/16 15:23 Dose: 240 mg Hydromorphone HCl (Dilaudid) 0.5 mg IVP Q4H PRN PRN Reason: Pain, moderate (4-7) Ceftriaxone Sodium (Rocephin 1 Gram Ivpb) 100 mls @ 100 mls/hr IVPB DAILY [facility] PRN Reason: Protocol Last Admin: 10/11/16 15:01 Dose: Not Given Metronidazole (Flagyl) 100 mls @ 100 mls/hr IVPB Q8 [facility] PRN Reason: Protocol Last Admin: 10/11/16 15:23 Dose: 100 mls/hr Dextrose (Dextrose 5% In Water 1000 Ml) 1,000 mls @ 50 mls/hr IV .Q20H [facility] Last Admin: 10/11/16 15:09 Dose: 50 mls/hr Insulin Human Regular (Humulin R Med) 0 units SC ACHS [facility] PRN Reason: Protocol Last Admin: 10/11/16 17:07 Dose: Not Given Ondansetron HCl (Zofran Inj) 4 mg IVP Q4 PRN PRN Reason: Nausea/Vomiting Last Admin: 10/11/16 12:30 Dose: 4 mg Pantoprazole Sodium (Protonix Inj) 40 mg IVP DAILY [facility] Last Admin: 10/11/16 15:24 Dose: 40 mg Physical Exam - Constitutional Appears: Non-toxic, No Acute Distress, Chronically Ill - Head Exam Head Exam: ATRAUMATIC, NORMOCEPHALIC - Eye Exam Eye Exam: EOMI, PERRL Pupil Exam: NORMAL ACCOMODATION, PERRL - ENT Exam ENT Exam: Mucous Membranes Moist, Normal External Ear Exam, TM's Normal Bilaterally - Neck Exam Neck exam: Positive for: Full Rom, Normal Inspection - Respiratory Exam Respiratory Exam: Clear to Auscultation Bilateral, NORMAL BREATHING PATTERN. absent: Rales, Rhonchi, Wheezes Additional comments: difficult to take deep breaths due to the abdominal surgery today - Cardiovascular Exam Cardiovascular Exam: REGULAR RHYTHM, RRR, +S1, +S2 - GI/Abdominal Exam Additional comments: heavily wrapped. drains in place. diffuse tenderness secondary to surgery. - Extremities Exam Extremities exam: Positive for: full ROM, normal inspection - Neurological Exam Neurological exam: Alert, CN II-XII Intact, Oriented x3 - Psychiatric Exam Psychiatric exam: Normal Affect, Normal Mood - Skin Skin Exam: Intact, Normal Color Additional comments: except for abdominal area. Results - Vital Signs Recent Vital Signs: Last Vital Signs Temp 98.7 F 10/11/16 17:47 Pulse 85 10/11/16 17:47 Resp 20 10/11/16 17:47 BP 116/64 10/11/16 17:47 Pulse Ox 94 L 10/11/16 12:45 - Labs Result Diagrams: 10/11/16 07:45 10/11/16 07:15 Labs: Laboratory Results - last 24 hr 10/10/16 10/10/16 10/10/16 18:48 22:06 22:47 WBC RBC Hgb Hct MCV MCH MCHC RDW Plt Count MPV Gran % Lymph % (Auto) Addison % (Auto) Eos % (Auto) Baso % (Auto) Gran # Lymph # Addison # Eos # Baso # PT INR APTT Sodium Potassium Chloride Carbon Dioxide Anion Gap BUN Creatinine Est GFR ( Amer) Est GFR (Non-Af Amer) POC Glucose (mg/dL) 44 L 167 H Random Glucose Calcium Phosphorus Magnesium Urine Color Urine Appearance Urine pH Ur Specific Deane Urine Protein Urine Glucose (UA) Urine Ketones Urine Blood Urine Nitrate Urine Bilirubin Urine Urobilinogen Ur Leukocyte Esterase Urine RBC Urine WBC Ur Epithelial Cells Urine Bacteria Blood Type AB POSITIVE Antibody Screen Negative BBK History Checked Patient has bt 10/11/16 10/11/16 10/11/16 00:15 06:38 07:15 WBC RBC Hgb Hct MCV MCH MCHC RDW Plt Count MPV Gran % Lymph % (Auto) Addison % (Auto) Eos % (Auto) Baso % (Auto) Gran # Lymph # Addison # Eos # Baso # PT 13.3 H INR 1.23 H APTT Sodium 143 Potassium 3.5 L Chloride 110 H Carbon Dioxide 23 Anion Gap 14 BUN 73 H Creatinine 3.3 H Est GFR ( Amer) 22 Est GFR (Non-Af Amer) 18 POC Glucose (mg/dL) Random Glucose 43 L* D Calcium 8.1 L Phosphorus 3.9 Magnesium 2.1 Urine Color Yellow Urine Appearance Clear Urine pH 6.0 Ur Specific Deane 1.020 Urine Protein Trace H Urine Glucose (UA) Negative Urine Ketones Negative Urine Blood Moderate H Urine Nitrate Negative Urine Bilirubin Negative Urine Urobilinogen 0.2 Ur Leukocyte Esterase Negative Urine RBC 2 - 5 Urine WBC 0 - 2 Ur Epithelial Cells 0 - 2 Urine Bacteria Small Blood Type Antibody Screen BBK History Checked 10/11/16 10/11/16 10/11/16 07:21 07:45 08:21 WBC 7.0 D RBC 3.16 L Hgb 9.6 L Hct 27.9 L MCV 88.3 MCH 30.4 MCHC 34.4 RDW 14.2 Plt Count 358 MPV 9.2 Gran % 81.1 H Lymph % (Auto) 8.0 L Addison % (Auto) 9.4 H Eos % (Auto) 1.4 L Baso % (Auto) 0.1 Gran # 5.66 Lymph # 0.6 L Addison # 0.7 H Eos # 0.1 Baso # 0.01 PT INR APTT 35.0 H Sodium Potassium Chloride Carbon Dioxide Anion Gap BUN Creatinine Est GFR ( Amer) Est GFR (Non-Af Amer) POC Glucose (mg/dL) 45 L 141 H Random Glucose Calcium Phosphorus Magnesium Urine Color Urine Appearance Urine pH Ur Specific Deane Urine Protein Urine Glucose (UA) Urine Ketones Urine Blood Urine Nitrate Urine Bilirubin Urine Urobilinogen Ur Leukocyte Esterase Urine RBC Urine WBC Ur Epithelial Cells Urine Bacteria Blood Type Antibody Screen BBK History Checked 10/11/16 11:47 WBC RBC Hgb Hct MCV MCH MCHC RDW Plt Count MPV Gran % Lymph % (Auto) Addison % (Auto) Eos % (Auto) Baso % (Auto) Gran # Lymph # Addison # Eos # Baso # PT INR APTT Sodium Potassium Chloride Carbon Dioxide Anion Gap BUN Creatinine Est GFR ( Amer) Est GFR (Non-Af Amer) POC Glucose (mg/dL) 109 Random Glucose Calcium Phosphorus Magnesium Urine Color Urine Appearance Urine pH Ur Specific Deane Urine Protein Urine Glucose (UA) Urine Ketones Urine Blood Urine Nitrate Urine Bilirubin Urine Urobilinogen Ur Leukocyte Esterase Urine RBC Urine WBC Ur Epithelial Cells Urine Bacteria Blood Type Antibody Screen BBK History Checked Assessment & Plan - Assessment and Plan (Free Text) Assessment: 76 yo male with abdominal pain found to have ruptured appendix. He required open appendectomy/laparotomy. On Rocephin and Flagyl. Would switch Rocephin to Cefepime for now and continue Flagyl. Supportive care. Await intraoperative cultures. Local wound care. No fevers or leukocytosis during this hospitalization. Pain management as per surgery. Wound care as per surgery. Family wanted podiatry to evaluate the feet due to previous ulcers. No current ulcerations on the feet now. Thank you for allowing me to participate in the care of the patient, we will follow with you.
[2016-10-11] MEDS: Cefepime 1gm in NS 100ml 100 ML IVPB SCH (23:03)
[2016-10-11] MEDS ORDERED: HYDROmorphone 0.5 mg/0.5 ml ISec IVP PRN (23:57)
--- NOTE | 2016-10-12 00:04 | CP.PCM.PN ---
Subjective - Date & Time of Evaluation Date of Evaluation: 10/12/16 Time of Evaluation: 06:15 - Subjective Subjective: General Surgery progress note for Dr. Jaramillo Pt s/e at bedside. NAEO. Patient reports abdominal pain appropriate for post op day 1. Denies nausea, vomiting, fevers, chills, SOB. Encouraged ambulation and Incentive spirometer use Objective - Vital Signs/Intake and Output Vital Signs (last 24 hours): Temp Pulse Resp BP Pulse Ox 98.7 F 85 20 116/64 94 L 10/11/16 17:47 10/11/16 17:47 10/11/16 17:47 10/11/16 17:47 10/11/16 12:45 Intake and Output: 10/11/16 10/12/16 18:59 06:59 Intake Total 380 Output Total 450 Balance -70 - Medications Medications: Current Medications Acetaminophen (Tylenol 325mg Tab) 650 mg PO Q6H PRN PRN Reason: Fever >100.4 F Atorvastatin Calcium (Lipitor) 10 mg PO DIN [facility] Last Admin: 10/11/16 17:20 Dose: 10 mg Diltiazem HCl (Cardizem Cd) 240 mg PO DAILY [facility] Last Admin: 10/11/16 15:23 Dose: 240 mg Hydromorphone HCl (Dilaudid) 0.5 mg IVP Q3H PRN PRN Reason: Pain, moderate (4-7) Metronidazole (Flagyl) 100 mls @ 100 mls/hr IVPB Q8 [facility] PRN Reason: Protocol Last Admin: 10/11/16 21:40 Dose: 100 mls/hr Dextrose (Dextrose 5% In Water 1000 Ml) 1,000 mls @ 50 mls/hr IV .Q20H [facility] Last Admin: 10/11/16 15:09 Dose: 50 mls/hr Cefepime HCl (Maxipime 1gm) 100 mls @ 100 mls/hr IVPB Q12 [facility] PRN Reason: Protocol Last Admin: 10/11/16 23:03 Dose: 100 mls/hr Insulin Human Regular (Humulin R Med) 0 units SC ACHS [facility] PRN Reason: Protocol Last Admin: 10/11/16 23:34 Dose: Not Given Ondansetron HCl (Zofran Inj) 4 mg IVP Q4 PRN PRN Reason: Nausea/Vomiting Last Admin: 10/11/16 12:30 Dose: 4 mg Pantoprazole Sodium (Protonix Inj) 40 mg IVP DAILY [facility] Last Admin: 10/11/16 15:24 Dose: 40 mg - Labs Labs: 10/11/16 07:45 10/11/16 07:15 PT 13.3 Seconds (9.9-11.8) H 10/11/16 07:15 INR 1.23 (0.93-1.08) H 10/11/16 07:15 APTT 35.0 Seconds (23.7-30.8) H 10/11/16 07:45 - Constitutional Appears: No Acute Distress - Head Exam Head Exam: ATRAUMATIC, NORMOCEPHALIC - Eye Exam Eye Exam: Normal appearance - ENT Exam ENT Exam: Mucous Membranes Moist - Respiratory Exam Respiratory Exam: NORMAL BREATHING PATTERN. absent: Accessory Muscle Use, Respiratory Distress - GI/Abdominal Exam GI & Abdominal Exam: Distended (moderate), Soft, Tenderness (appropriate tenderness to palpation) Additional comments: Surgical dressings dry and intact. abdominal binder in place - Neurological Exam Neurological Exam: Alert, Awake, Oriented x3 - Psychiatric Exam Psychiatric exam: Normal Affect, Normal Mood - Skin Skin Exam: Dry, Normal Color, Warm Assessment and Plan - Assessment and Plan (Free Text) Assessment: 76M with perforated acute appendicitis POD#1 s/p open appendectomy SUE output: clear sero-sanguinous output Plan: - Serial abdominal exams - monitor WBC - Monitor SUE output - continue ABX per ID - Continue management per primary team - GI & DVT ppx - Pain management and anti-emetics Discussed with Dr. Clint Francois, PGY1
[2016-10-12] MEDS: metroNIDAZOLE IV 500 mg/100 ml 100 ML IVPB SCH ×3 (05:38→21:21)
[2016-10-12] MEDS ORDERED: HYDROmorphone 1 mg/ml ISec IVP PRN (06:00)
[2016-10-12 07:02] LABS: ADD MANUAL DIFF? NO
[2016-10-12 07:09] LABS: BASO # 0.01 K/mm3 (0.0-2.0); BASO % 0.1 % (0.0-3.0); EOS % 0.2 % (1.5-5.0); GRAN # 9.73 (1.4-6.5); GRAN % 87.4 % (50.0-68.0); HEMATOCRIT 30.9 % (42.0-52.0); LYMPH # 0.5 (1.2-3.4); LYMPH % 4.3 % (22.0-35.0); MEAN CORPUSCULAR HEMOGLOBIN 29.1 pg (25.0-35.0); MEAN PLATELET VOLUME 8.9 fl (7.0-11.0); MONO # 0.9 (0.1-0.6); PLATELET COUNT 378 10^3/uL (120.0-450.0); RED CELL DISTRIBUTION WIDTH 14.4 % (11.5-14.5); WHITE BLOOD COUNT 11.1 10^3/ul (4.5-11.0)
[2016-10-12 07:40] LABS: ALB/GLOB RATIO 0.8 (1.1-1.8); BILIRUBIN,TOTAL 0.7 mg/dL (0.2-1.3); PHOSPHOROUS 4.9 mg/dL (2.5-4.5); POTASSIUM 3.7 mmol/L (3.6-5.0); TOTAL PROTEIN 6.7 g/dL (5.8-8.3)
[2016-10-12 07:42] LABS: IRON < 10 ug/dL (45-180)
[2016-10-12] MEDS: Insulin Reg-MEDIUM-Coverage SC SCH ×4 (09:26→21:22)
[2016-10-12] MEDS: diltiaZEM 240 mg/24 Hours CD Cap PO SCH (09:31)
[2016-10-12] MEDS: Cefepime 1gm in NS 100ml 100 ML IVPB SCH ×2 (09:32→22:50)
--- NOTE | 2016-10-12 09:45 | CARD ---
APPROVED REPORT EKG Measurement Heart [id number] <Conclusion> Atrial fibrillation Right bundle branch block STTW changes Q in 3 No change
[2016-10-12] MEDS: HYDROmorphone 1 mg/ml ISec IVP PRN ×4 (10:32→21:21)
[2016-10-12 11:17] LABS: FOLATE 11.3 ng/mL
--- NOTE | 2016-10-12 11:21 | CP.PCM.PN ---
<Dwight Streeter - Last Filed: 10/12/16 11:18> Subjective - Date & Time of Evaluation Date of Evaluation: 10/12/16 Time of Evaluation: 07:29 - Subjective Subjective: Pt seen and examined. Pt complaining of pain in lower abdomen. Pt reports that he is not passing gas. Pt has not had a bowel movement yet. Pt reports that he is feeling naseous. Pt denies fever, chills, chest pain, shortness of breath, vomiting. Objective - Vital Signs/Intake and Output Vital Signs (last 24 hours): Temp Pulse Resp BP Pulse Ox 97.7 F 77 20 142/70 97 10/12/16 06:00 10/12/16 09:31 10/12/16 06:00 10/12/16 09:31 10/12/16 06:00 Intake and Output: 10/12/16 10/12/16 06:59 18:59 Intake Total 980 Output Total 890 Balance 90 - Medications Medications: Current Medications Acetaminophen (Tylenol 325mg Tab) 650 mg PO Q6H PRN PRN Reason: Fever >100.4 F Atorvastatin Calcium (Lipitor) 10 mg PO DIN [facility] Last Admin: 10/11/16 17:20 Dose: 10 mg Diltiazem HCl (Cardizem Cd) 240 mg PO DAILY [facility] Last Admin: 10/12/16 09:31 Dose: 240 mg Heparin Sodium (Porcine) (Heparin) 5,000 units SC Q12 [facility] PRN Reason: Protocol Last Admin: 10/12/16 09:32 Dose: 5,000 units Hydromorphone HCl (Dilaudid) 1 mg IVP Q3H PRN PRN Reason: Pain, moderate (4-7) Last Admin: 10/12/16 10:32 Dose: 1 mg Metronidazole (Flagyl) 100 mls @ 100 mls/hr IVPB Q8 [facility] PRN Reason: Protocol Last Admin: 10/12/16 05:38 Dose: 100 mls/hr Dextrose (Dextrose 5% In Water 1000 Ml) 1,000 mls @ 50 mls/hr IV .Q20H [facility] Last Admin: 10/11/16 15:09 Dose: 50 mls/hr Cefepime HCl (Maxipime 1gm) 100 mls @ 100 mls/hr IVPB Q12 [facility] PRN Reason: Protocol Last Admin: 10/12/16 09:32 Dose: 100 mls/hr Insulin Human Regular (Humulin R Med) 0 units SC ACHS [facility] PRN Reason: Protocol Last Admin: 10/12/16 09:26 Dose: Not Given Ondansetron HCl (Zofran Inj) 4 mg IVP Q4 PRN PRN Reason: Nausea/Vomiting Last Admin: 10/11/16 12:30 Dose: 4 mg Pantoprazole Sodium (Protonix Ec Tab) 40 mg PO ACB [facility] - Labs Labs: 10/12/16 06:59 10/12/16 06:59 PT 13.3 Seconds (9.9-11.8) H 10/11/16 07:15 INR 1.23 (0.93-1.08) H 10/11/16 07:15 APTT 35.0 Seconds (23.7-30.8) H 10/11/16 07:45 - Constitutional Appears: No Acute Distress - Head Exam Head Exam: ATRAUMATIC, NORMOCEPHALIC - Eye Exam Eye Exam: EOMI, PERRL - ENT Exam ENT Exam: Mucous Membranes Dry. absent: Mucous Membranes Moist - Respiratory Exam Respiratory Exam: Clear to Ausculation Bilateral. absent: Rales, Rhonchi, Wheezes - Cardiovascular Exam Cardiovascular Exam: +S1, +S2. absent: Gallop, Rubs, Murmur - GI/Abdominal Exam GI & Abdominal Exam: Soft, Tenderness, Hypoactive Bowel Sounds. absent: Distended, Guarding Additional comments: Left lower quadrant tenderness - Extremities Exam Extremities Exam: Full ROM. absent: Pedal Edema - Neurological Exam Neurological Exam: Alert, Awake, Oriented x3 - Psychiatric Exam Psychiatric exam: Normal Affect, Normal Mood - Skin Skin Exam: Normal Color, Warm Assessment and Plan - Assessment and Plan (Free Text) Assessment: Acute Appendicitis: Day 1 s/p open appendectomy and debridement of abscess; drain in place with serosanguinous fluid Afebrile, nontachycardic WBC - 11.1 Abd/Pelvis CT - acute appendicitis, small bowel dilatation most likely due to ileus (please see full report) Surgery consulted, Dr. Jaramillo, help appreciated. Infectious Disease, Dr. Crystal, consulted. Help appreciated. Rocephin discontinued as per ID Pt started on Maxipime 1 gm IV Q12h as per ID Flagyl IV q8h Wound cultures pending D51/2 IVF 50 cc/hr 2 units of FFP ordered prior to surgery due to supratherapeutic INR Vitamin K 10 mg IV once prior to surgery Zofran 4 mg IV q4h prn for nausea Dilaudid 1 mg IVP q3h prn for pain Tylenol 650 mg po q6h prn for fever > 100.4 Cardiology, Dr. Smith, consulted. Help appreciated. Coagulopathy: INR pending Coumadin held Acute on Chronic Kidney Injury: Bun/Cr: 65/3.1, improving D5W IVF 50 cc/hr Nephrology, Dr. Jin, consulted. Help appreciated. Pending repeat CPK Losartan held Anemia: H/H: 10.2/30.9 Iron < 10 TIBC -287 Ferritin - 101, normal Folate - 11.3 Diabetes Mellitus: Oral medications held Regular insulin sliding scale Accuchecks Hx of atrial fibrillation: EKG - atrial fibrillation, right bundle branch block Cardizem 240 mg po qd Dyslipidemia: Lipitor 10 mg po din HTN: Losartan held due to acute kidney injury Prophylactic Measures: GI: Protonix 40 mg IV qd DVT: SCDs, Heparin 5000 units sc q12h <Liya Wahl B - Last Filed: 10/12/16 15:03> Objective - Vital Signs/Intake and Output Vital Signs (last 24 hours): Temp Pulse Resp BP Pulse Ox 97.9 F 64 18 139/74 97 10/12/16 12:00 10/12/16 12:00 10/12/16 12:00 10/12/16 12:00 10/12/16 06:00 Intake and Output: 10/12/16 10/12/16 06:59 18:59 Intake Total 980 Output Total 890 Balance 90 - Medications Medications: Current Medications Acetaminophen (Tylenol 325mg Tab) 650 mg PO Q6H PRN PRN Reason: Fever >100.4 F Atorvastatin Calcium (Lipitor) 10 mg PO DIN [facility] Last Admin: 10/11/16 17:20 Dose: 10 mg Diltiazem HCl (Cardizem Cd) 240 mg PO DAILY [facility] Last Admin: 10/12/16 09:31 Dose: 240 mg Heparin Sodium (Porcine) (Heparin) 5,000 units SC Q12 [facility] PRN Reason: Protocol Last Admin: 10/12/16 09:32 Dose: 5,000 units Hydromorphone HCl (Dilaudid) 1 mg IVP Q3H PRN PRN Reason: Pain, moderate (4-7) Last Admin: 10/12/16 10:32 Dose: 1 mg Metronidazole (Flagyl) 100 mls @ 100 mls/hr IVPB Q8 [facility] PRN Reason: Protocol Last Admin: 10/12/16 05:38 Dose: 100 mls/hr Dextrose (Dextrose 5% In Water 1000 Ml) 1,000 mls @ 50 mls/hr IV .Q20H [facility] Last Admin: 10/12/16 12:29 Dose: 50 mls/hr Cefepime HCl (Maxipime 1gm) 100 mls @ 100 mls/hr IVPB Q12 [facility] PRN Reason: Protocol Last Admin: 10/12/16 09:32 Dose: 100 mls/hr Insulin Human Regular (Humulin R Med) 0 units SC ACHS [facility] PRN Reason: Protocol Last Admin: 10/12/16 12:31 Dose: 3 units Ondansetron HCl (Zofran Inj) 4 mg IVP Q4 PRN PRN Reason: Nausea/Vomiting Last Admin: 10/11/16 12:30 Dose: 4 mg Pantoprazole Sodium (Protonix Ec Tab) 40 mg PO ACB [facility] Warfarin Sodium (Coumadin) 2 mg PO 1800 [facility] PRN Reason: Protocol - Labs Labs: 10/12/16 06:59 10/12/16 06:59 PT 13.3 Seconds (9.9-11.8) H 10/11/16 07:15 INR 1.23 (0.93-1.08) H 10/11/16 07:15 APTT 35.0 Seconds (23.7-30.8) H 10/11/16 07:45 Attending/Attestation - Attestation I have personally seen and examined this patient.: Yes I have fully participated in the care of the patient.: Yes I have reviewed all pertinent clinical information, including history, physical exam and plan: Yes Notes (Text): I have seen and examined patient at bedside with the resident. This is 76 year old male with history of DM-2, gastritis, peripheral neuropathy, foot drop, atrial fibrillation, diverticulosis, dyslipidemia, HTN, prostate cancer, hemorrhoids, cecal AVM, former heavy smoker, anal fissure repair who got admitted for acute appendicitis. Patient was taken to OR yesterday and found to have perforated appendicitis and underwent open appendectomy. SUE drain in place. Patient is on clear liquid diet. Will continue cefepime and flagyl as per ID. Will restart coumadin today. Discussed with Dr Jaramillo and Dr Rosario. Also has Acute on chronic kidney disease. Urine lytes are pending. Nephro consult pending. Dr Liya Wahl
--- NOTE | 2016-10-12 13:06 | PN ---
DATE: 10/12/2016 The patient denies any chest pain. No reported ventricular arrhythmia. PHYSICAL EXAMINATION: VITAL SIGNS: Blood pressure 142/70, heart rate 77, temperature 97.7, respirations 20. HEENT: Normocephalic. NECK: No JVD. CHEST: Clear. HEART: S1, S2 regular. EXTREMITIES: No edema. LABORATORIES: Hemoglobin and hematocrit 10.2 and 30.9, white count 11.1, platelet count 378,000. SM A-7: Sodium 142, potassium 3.7, chloride 109, CO2 18, glucose 178, BUN 65, creatinine 3.1. EKG was ordered yesterday, but is not available on the computer database. ASSESSMENT: 1. Status post appendectomy for ruptured appendix. 2. Chronic atrial fibrillation. 3. Right bundle branch block. 4. Advanced renal insufficiency. RECOMMENDATIONS: Continue Cardizem-CD 240 mg daily, subcutaneous heparin 5000 units q. 12 hours. Co ntinue IV Flagyl and IV Maxipime. I will administer Coumadin 2 mg p.o. today and obtain 12-lead EKG. Anderson Smith MD cc: [id number] TT: 10/12/2016 13:05:46 Confirmation # [id number] Dictation # [id number] antonio
--- NOTE | 2016-10-12 16:49 | CP.PCM.PN ---
Subjective - Date & Time of Evaluation Date of Evaluation: 10/12/16 Time of Evaluation: 15:00 - Subjective Subjective: Infectious Disease Follow Up: October 12, 2016 76 yo male with severe abdominal pain for the past 5 days before his family convinced him to come to the hospital. The patient was found to have appendicitis. Laproscopic appendectomy was attempted but failed when the conditions in the abdomen were noted. The patient was converted into an open appendectomy where he was found to have an ruptured appendix with inflammation of the intestines and adhesion of the tissues within the abdominal cavity. Started on IV antibiotics. Case discussed with Surgery. Doing relatively well given recent open laparotomy for appendectomy. Objective - Vital Signs/Intake and Output Vital Signs (last 24 hours): Temp Pulse Resp BP Pulse Ox 97.9 F 67 18 139/74 97 10/12/16 12:00 10/12/16 14:00 10/12/16 12:00 10/12/16 12:00 10/12/16 06:00 Intake and Output: 10/12/16 10/12/16 06:59 18:59 Intake Total 980 Output Total 890 Balance 90 - Medications Medications: Current Medications Acetaminophen (Tylenol 325mg Tab) 650 mg PO Q6H PRN PRN Reason: Fever >100.4 F Atorvastatin Calcium (Lipitor) 10 mg PO DIN [facility] Last Admin: 10/11/16 17:20 Dose: 10 mg Diltiazem HCl (Cardizem Cd) 240 mg PO DAILY [facility] Last Admin: 10/12/16 09:31 Dose: 240 mg Heparin Sodium (Porcine) (Heparin) 5,000 units SC Q12 [facility] PRN Reason: Protocol Last Admin: 10/12/16 09:32 Dose: 5,000 units Hydromorphone HCl (Dilaudid) 1 mg IVP Q3H PRN PRN Reason: Pain, moderate (4-7) Last Admin: 10/12/16 14:35 Dose: 1 mg Metronidazole (Flagyl) 100 mls @ 100 mls/hr IVPB Q8 [facility] PRN Reason: Protocol Last Admin: 10/12/16 14:36 Dose: 100 mls/hr Dextrose (Dextrose 5% In Water 1000 Ml) 1,000 mls @ 50 mls/hr IV .Q20H [facility] Last Admin: 10/12/16 12:29 Dose: 50 mls/hr Cefepime HCl (Maxipime 1gm) 100 mls @ 100 mls/hr IVPB Q12 [facility] PRN Reason: Protocol Last Admin: 10/12/16 09:32 Dose: 100 mls/hr Insulin Human Regular (Humulin R Med) 0 units SC ACHS [facility] PRN Reason: Protocol Last Admin: 10/12/16 12:31 Dose: 3 units Ondansetron HCl (Zofran Inj) 4 mg IVP Q4 PRN PRN Reason: Nausea/Vomiting Last Admin: 10/11/16 12:30 Dose: 4 mg Pantoprazole Sodium (Protonix Ec Tab) 40 mg PO ACB [facility] Warfarin Sodium (Coumadin) 2 mg PO 1800 [facility] PRN Reason: Protocol - Labs Labs: 10/12/16 06:59 10/12/16 06:59 PT 13.3 Seconds (9.9-11.8) H 10/11/16 07:15 INR 1.23 (0.93-1.08) H 10/11/16 07:15 APTT 35.0 Seconds (23.7-30.8) H 10/11/16 07:45 - Constitutional Appears: Non-toxic, No Acute Distress, Chronically Ill - Head Exam Head Exam: ATRAUMATIC, NORMOCEPHALIC - Eye Exam Eye Exam: EOMI, PERRL Pupil Exam: NORMAL ACCOMODATION, PERRL - ENT Exam ENT Exam: Mucous Membranes Moist, Normal External Ear Exam, TM's Normal Bilaterally - Neck Exam Neck Exam: Full ROM, Normal Inspection - Respiratory Exam Respiratory Exam: Clear to Ausculation Bilateral, NORMAL BREATHING PATTERN. absent: Rales, Rhonchi, Wheezes Additional comments: difficult to take deep breaths due to the abdominal surgery today - Cardiovascular Exam Cardiovascular Exam: REGULAR RHYTHM, RRR, +S1, +S2 - GI/Abdominal Exam GI & Abdominal Exam: Distended, Soft, Tenderness Additional comments: wrapped. drains in place. diffuse tenderness secondary to surgery/open laparotomy. - Extremities Exam Extremities Exam: Full ROM, Normal Inspection - Neurological Exam Neurological Exam: Alert, Awake, CN II-XII Intact, Oriented x3 - Psychiatric Exam Psychiatric exam: Normal Affect, Normal Mood - Skin Skin Exam: Intact, Normal Color Additional comments: except for abdominal area. Assessment and Plan - Assessment and Plan (Free Text) Assessment: 76 yo male with abdominal pain found to have ruptured appendix. He required open appendectomy/laparotomy. On Rocephin and Flagyl. Would switch Rocephin to Cefepime for now and continue Flagyl. Supportive care. Await intraoperative cultures. Local wound care. No fevers or leukocytosis during this hospitalization. Overall doing well. No new issues at this time. Pain management as per surgery. Wound care as per surgery. Family wanted podiatry to evaluate the feet due to previous ulcers. No current ulcerations on the feet now. Thank you for allowing me to participate in the care of the patient, we will follow with you.
[2016-10-13] MEDS: metroNIDAZOLE IV 500 mg/100 ml 100 ML IVPB SCH ×3 (05:05→22:22)
[2016-10-13 06:45] LABS: ADD MANUAL DIFF? NO
[2016-10-13 07:01] LABS: INR 1.33 (0.93-1.08)
[2016-10-13 07:07] LABS: BASO # 0.03 K/mm3 (0.0-2.0); BASO % 0.2 % (0.0-3.0); EOS % 0.2 % (1.5-5.0); GRAN # 14.02 (1.4-6.5); GRAN % 87.4 % (50.0-68.0); HEMATOCRIT 29.5 % (42.0-52.0); LYMPH # 0.7 (1.2-3.4); LYMPH % 4.5 % (22.0-35.0); MEAN CELL VOLUME 88.6 fL (80.0-105.0); MEAN CORPUSCULAR HGB CONC 33.9 g/dl (31.0-37.0); MEAN PLATELET VOLUME 9.4 fl (7.0-11.0); MONO # 1.2 (0.1-0.6); MONO % 7.7 % (1.0-6.0); PLATELET COUNT 467 10^3/uL (120.0-450.0); RED CELL DISTRIBUTION WIDTH 14.7 % (11.5-14.5)
[2016-10-13 07:14] LABS: ALB/GLOB RATIO 0.8 (1.1-1.8); BILIRUBIN,TOTAL 0.7 mg/dL (0.2-1.3); CALCIUM 8.4 mg/dL (8.4-10.5); MAGNESIUM 2.3 mg/dL (1.7-2.2); PHOSPHOROUS 5.9 mg/dL (2.5-4.5); POTASSIUM 4.3 mmol/L (3.6-5.0); TOTAL PROTEIN 6.9 g/dL (5.8-8.3)
--- NOTE | 2016-10-13 07:25 | PN ---
DATE: 10/12/2016 SUBJECTIVE: This patient was seen and evaluated earlier. Discussed with the patient's daughter who was also at bedside. PHYSICAL EXAMINATION: VITAL SIGNS: Afebrile, blood pressure 141/73, pulse 62, respirations 18. HEENT: Atraumatic, anicteric. NECK: Supple. HEART: S1, S2 heard. LUNGS: Bilateral air entry present. ABDOMEN: Soft. Surgical dressing noticed. EXTREMITIES: Pneumatic compressions present. LABORATORY DATA: Hemoglobin is 10.2, hematocrit 30.9, WBC is 11.1, platelets 378. Chemistry: Renal function is improving. BUN 65, creatinine 3.1. IMPRESSION: This 76-year-old patient is status post open appendicectomy. Presently on cefepime and Flagyl. On clear liquid diet, tolerating. History of ____. Other comorbidities include history of angiodysplasias, colon polyp, diverticulosis, peptic ulcer disease. Would recommend to continue the PPI as the patient is also being restarted on Coumadin. The patient has a history of paroxysmal atri al fibrillation, coronary artery disease. Will continue to closely follow up her care based on the c linical course. The patient is on Protonix; continue that. Thank you very much for allowing us to participate in the care of the patient. Close followup of the hemoglobin and hematocrit is also recommended. Paris Goyal MD cc: [phone] TT: 10/13/2016 07:24:56 Confirmation # [id number] Dictation # [id number] mn
--- NOTE | 2016-10-13 07:31 | CP.PCM.PN ---
Subjective - Date & Time of Evaluation Date of Evaluation: 10/13/16 Time of Evaluation: 06:40 - Subjective Subjective: Surgery Progress note for Dr Jaramillo: Pt seen and examined at bedside. No acute events overnight. Pt had 2 episodes of bilious vomiting overnight. Abdominal pain controlled at this time. Denies any headaches, dizziness, f/c, sob, cp, abd pain, diarrhea or urinary changes. Objective - Vital Signs/Intake and Output Vital Signs (last 24 hours): Temp Pulse Resp BP Pulse Ox 98.2 F 63 20 122/60 91 L 10/13/16 06:00 10/13/16 06:00 10/13/16 06:00 10/13/16 06:00 10/13/16 06:00 Intake and Output: 10/13/16 10/13/16 06:59 18:59 Intake Total 2450 Output Total 425 Balance 2024 - Medications Medications: Current Medications Acetaminophen (Tylenol 325mg Tab) 650 mg PO Q6H PRN PRN Reason: Fever >100.4 F Atorvastatin Calcium (Lipitor) 10 mg PO DIN [facility] Last Admin: 10/12/16 17:14 Dose: 10 mg Diltiazem HCl (Cardizem Cd) 240 mg PO DAILY [facility] Last Admin: 10/12/16 09:31 Dose: 240 mg Heparin Sodium (Porcine) (Heparin) 5,000 units SC Q12 [facility] PRN Reason: Protocol Last Admin: 10/12/16 21:22 Dose: 5,000 units Hydromorphone HCl (Dilaudid) 1 mg IVP Q3H PRN PRN Reason: Pain, moderate (4-7) Last Admin: 10/12/16 21:21 Dose: 1 mg Metronidazole (Flagyl) 100 mls @ 100 mls/hr IVPB Q8 [facility] PRN Reason: Protocol Last Admin: 10/13/16 05:05 Dose: 100 mls/hr Dextrose (Dextrose 5% In Water 1000 Ml) 1,000 mls @ 50 mls/hr IV .Q20H [facility] Last Admin: 10/12/16 12:29 Dose: 50 mls/hr Cefepime HCl (Maxipime 1gm) 100 mls @ 100 mls/hr IVPB Q12 [facility] PRN Reason: Protocol Last Admin: 10/12/16 22:50 Dose: 100 mls/hr Insulin Human Regular (Humulin R Med) 0 units SC ACHS [facility] PRN Reason: Protocol Last Admin: 10/12/16 21:22 Dose: Not Given Ondansetron HCl (Zofran Inj) 4 mg IVP Q4 PRN PRN Reason: Nausea/Vomiting Last Admin: 10/11/16 12:30 Dose: 4 mg Pantoprazole Sodium (Protonix Ec Tab) 40 mg PO ACB [facility] Warfarin Sodium (Coumadin) 2 mg PO 1800 [facility] PRN Reason: Protocol Last Admin: 10/12/16 17:13 Dose: 2 mg - Labs Labs: 10/13/16 06:30 10/13/16 06:30 PT 14.4 Seconds (9.9-11.8) H 10/13/16 06:30 INR 1.33 (0.93-1.08) H 10/13/16 06:30 APTT 35.0 Seconds (23.7-30.8) H 10/11/16 07:45 - Constitutional Appears: No Acute Distress - Respiratory Exam Respiratory Exam: Clear to Ausculation Bilateral, NORMAL BREATHING PATTERN - Cardiovascular Exam Cardiovascular Exam: REGULAR RHYTHM, +S1, +S2. absent: Murmur - GI/Abdominal Exam GI & Abdominal Exam: Soft, Normal Bowel Sounds. absent: Distended, Tenderness Additional comments: SUE - Serosanguinous output 25cc - Neurological Exam Neurological Exam: Alert, Awake, CN II-XII Intact, Normal Gait, Oriented x3 Assessment and Plan - Assessment and Plan (Free Text) Assessment: 76 M with perforated acute appendicitis s/p open appendectomy POD 2 - Continue ABX - Cefepime and Flagyl as per ID - Increased IVF - Pain management - Antiemetics for vomiting - Cont to monitor drain output - Serial abd exam - Medical management as per primary team Further recs discuss with Dr Clint Addison IM - PGY1
--- NOTE | 2016-10-13 08:20 | PN ---
DATE: 10/11/2016 ADDENDUM: This patient was seen and evaluated earlier. He had status post appendicectomy. The patient's daugh ter was at bedside. On examination, temperature 99.1, pulse 83, blood pressure 143/55. HENT: Atraumatic. Anicteric. NECK: Supple. HEART: S1, S2 heard. LUNGS: Bilateral air entry present. ABDOMEN: Soft. The surgical incision noticed. EXTREMITIES: No cyanosis, no clubbing. LABORATORY DATA: Hemoglobin is 9.6, hematocrit 27.9, WBC is 7.0, platelets is 358. Chemistry showed creatinine 3.3, BUN 73, potassium 3.5. IMPRESSION: This 76-year-old patient status post appendectomy for acute appendicitis. The patient h as a history of atrial fibrillation, . The patient had a history of colonic polyp, angiodysplas ia, diverticulosis. The patient had LA grade A esophagitis on the last endoscopy; also had erosive g astropathy. Presently on pantoprazole. Continue that, and follow up the hemoglobin and hematocrit. Thank you very much for allowing us to participate in the care of the patient. Discussed with the spitalist, Dr. Alec Wahl, earlier. Paris Goyal MD cc: [phone] TT: 10/11/2016 18:23:20 Confirmation # [id number] Dictation # [id number] john
--- NOTE | 2016-10-13 08:22 | CON ---
DATE: 10/10/2016 This patient was seen earlier and evaluated. The patient presented to the Emergency Room with compla ints of pain in the right ____ quadrant area of about 3 days' duration. Pain progressively getting w orse. The patient's daughter called me earlier in the morning. The patient was advised to go to the Emergency Room for further evaluation. This patient was seen DICTATED STOPPED Paris Goyal MD cc: [id number] TT: 10/11/2016 08:27:19 Confirmation # [id number] Dictation # [id number] jn
[2016-10-13] MEDS: HYDROmorphone 1 mg/ml ISec IVP PRN ×2 (09:43→20:49)
--- NOTE | 2016-10-13 09:45 | CARD ---
APPROVED REPORT EKG Measurement Heart [id number] <Conclusion> Atrial fibrillation Right bundle branch block STTW changes No change
[2016-10-13] MEDS: Pantoprazole 40 mg EC Tab PO SCH (09:46)
[2016-10-13] MEDS: Insulin Reg-MEDIUM-Coverage SC SCH ×4 (09:46→22:14)
[2016-10-13] MEDS: diltiaZEM 240 mg/24 Hours CD Cap PO SCH (09:46)
[2016-10-13] MEDS: Cefepime 1gm in NS 100ml 100 ML IVPB SCH ×2 (12:19→23:21)
--- NOTE | 2016-10-13 12:53 | PN ---
DATE: 10/13/2016 The patient did vomit twice this morning. He is experiencing abdominal discomfort, but no chest pain . PHYSICAL EXAMINATION: VITAL SIGNS: Blood pressure 133/72, heart rate 55, temperature 98.3, respirations 18. HEENT: Pale conjunctivae. CHEST: Diminished breath sounds over the bases. HEART: S1, S2 irregular. EXTREMITIES: No edema. LABORATORIES: CBC: WBC 16, hemoglobin 10, hematocrit 29.5, platelet count 467,000. SMA-7: Sodium 139, potassium 4.3, chloride 104, CO2 16, glucose 273, BUN 80, creatinine 3.6. ASSESSMENT: 1. Status post open appendectomy for ruptured appendicitis. 2. Chronic atrial fibrillation. 3. Ileus. RECOMMENDATIONS: Coumadin 2 mg will be administered today. The patient's INR today is 1.33. May art subcutaneous heparin if okay with the surgeon, Dr. Jaramillo. Obtain a portable chest x-ray and co ntinue IV Flagyl and IV Maxipime. Hold Cardizem for now because of bradycardia. Anderson Smith MD cc: [id number] TT: 10/13/2016 12:52:46 Confirmation # [id number] Dictation # [id number]
[2016-10-13] MEDS ORDERED: Dextrose 5%/0.45% NS 1,000 ML IV SCH (13:30)
--- NOTE | 2016-10-13 16:34 | CP.PCM.CON ---
History of Present Illness - History of Present Illness History of Present Illness: 76 y/o male with pmhx of Diabetes mellitus, gastritis, peripheral neuropathy, foot drop, atrial fibrillation, diverticulosis, dyslipidemia, HTN, prostate cancer, hemorrhoids, and cecal arteriovenous malformation seen at bedside at the request of podiatry consultation. Patient had a history of neuropathy and drop foot but denies any current pedal complaints. Patient denies any pain, numbness, burning or tingling in his feet. He denies any n/f/v/c/d/sob. Review of Systems - Constitutional Constitutional: As Per HPI Past Patient History - Infectious Disease Hx of Infectious Diseases: None - Tetanus Immunizations Tetanus Immunization: Unknown - Past Social History Smoking Status: Former Smoker (Quit smoking one year ago) - CARDIAC Hx Hypertension: Yes Hx Pacemaker: No Other/Comment: cardiac problem - PULMONARY Hx Respiratory Disorders: No - NEUROLOGICAL Hx Paralysis: No - HEENT Hx HEENT Problems: Yes Hx Cataracts: Yes (BILATERAL SURGERY) - RENAL Hx Chronic Kidney Disease: No - ENDOCRINE/METABOLIC Hx Endocrine Disorders: Yes Hx Diabetes Mellitus Type 1: Yes - HEMATOLOGICAL/ONCOLOGICAL Hx Blood Transfusions: Yes (2013) Hx Blood Transfusion Reaction: No - INTEGUMENTARY Hx Dermatological Problems: No Other/Comment: ble redness and discolorations - MUSCULOSKELETAL/RHEUMATOLOGICAL Hx Musculoskeletal Disorders: No - GASTROINTESTINAL Hx Gastrointestinal Disorders: Yes (GI BLEED) Other/Comment: colonoscopy, gi bleed - GENITOURINARY/GYNECOLOGICAL Hx Genitourinary Disorders: No - PSYCHIATRIC Hx Emotional Abuse: No Hx Physical Abuse: No Hx Substance Use: No - SURGICAL HISTORY Other/Comment: right clavical cyst removed - ANESTHESIA Hx Anesthesia Reactions: No Hx Malignant Hyperthermia: No Meds Allergies/Adverse Reactions: Allergies Allergy/AdvReac Type Severity Reaction Status Date / Time No Known Allergies Allergy Verified 12/28/13 12:16 - Medications Medications: Current Medications Acetaminophen (Tylenol 325mg Tab) 650 mg PO Q6H PRN PRN Reason: Fever >100.4 F Atorvastatin Calcium (Lipitor) 10 mg PO DIN [facility] Last Admin: 10/12/16 17:14 Dose: 10 mg Heparin Sodium (Porcine) (Heparin) 5,000 units SC Q12 [facility] PRN Reason: Protocol Last Admin: 10/13/16 09:43 Dose: 5,000 units Hydromorphone HCl (Dilaudid) 1 mg IVP Q3H PRN PRN Reason: Pain, moderate (4-7) Last Admin: 10/13/16 09:43 Dose: 1 mg Metronidazole (Flagyl) 100 mls @ 100 mls/hr IVPB Q8 [facility] PRN Reason: Protocol Last Admin: 10/13/16 15:18 Dose: 100 mls/hr Cefepime HCl (Maxipime 1gm) 100 mls @ 100 mls/hr IVPB Q12 [facility] PRN Reason: Protocol Last Admin: 10/13/16 12:19 Dose: 100 mls/hr Sodium Bicarbonate 75 meq/ (Sodium Chloride) 1,075 mls @ 100 mls/hr IV .[id number] [facility] Last Admin: 10/13/16 15:18 Dose: 100 mls/hr Insulin Human Regular (Humulin R Med) 0 units SC ACHS [facility] PRN Reason: Protocol Last Admin: 10/13/16 12:19 Dose: 7 units Ondansetron HCl (Zofran Inj) 4 mg IVP Q4 PRN PRN Reason: Nausea/Vomiting Last Admin: 10/11/16 12:30 Dose: 4 mg Pantoprazole Sodium (Protonix Ec Tab) 40 mg PO ACB [facility] Last Admin: 10/13/16 09:46 Dose: Not Given Warfarin Sodium (Coumadin) 2 mg PO 1800 [facility] PRN Reason: Protocol Last Admin: 10/12/16 17:13 Dose: 2 mg Physical Exam - Constitutional Appears: Well, Non-toxic, No Acute Distress - Extremities Exam Additional comments: Vasc: DP 1/4, PT 1/4 b/l, TG wnl, cft < 3 sec to all digits neuro: grossly diminished derm: no edema, no erythema, no open lesions, no interdigital maceration, no clinical signs of infection, no hyperkeratotic lesions ortho: drop foot present b/l, hallux extensus b/l - Neurological Exam Neurological exam: Alert, Oriented x3 - Psychiatric Exam Psychiatric exam: Normal Affect, Normal Mood Results - Vital Signs Recent Vital Signs: Last Vital Signs Temp 98.3 F 10/13/16 11:44 Pulse 55 L 10/13/16 11:44 Resp 18 10/13/16 11:44 BP 133/72 10/13/16 11:44 Pulse Ox 91 L 10/13/16 06:00 - Labs Result Diagrams: 10/13/16 06:30 10/13/16 06:30 Labs: Laboratory Results - last 24 hr 10/13/16 06:30 WBC 16.0 H D RBC 3.33 L Hgb 10.0 L Hct 29.5 L MCV 88.6 MCH 30.0 MCHC 33.9 RDW 14.7 H Plt Count 467 H MPV 9.4 Gran % 87.4 H Lymph % (Auto) 4.5 L Bee % (Auto) 7.7 H Eos % (Auto) 0.2 L Baso % (Auto) 0.2 Gran # 14.02 H Lymph # 0.7 L Bee # 1.2 H Eos # 0.0 Baso # 0.03 PT 14.4 H INR 1.33 H Sodium 139 Potassium 4.3 Chloride 104 Carbon Dioxide 16 L Anion Gap 23 H BUN 80 H Creatinine 3.6 H Est GFR ( Amer) 20 Est GFR (Non-Af Amer) 17 Random Glucose 273 H Calcium 8.4 Phosphorus 5.9 H Magnesium 2.3 H Total Bilirubin 0.7 AST 49 ALT 27 Alkaline Phosphatase 192 H Total Protein 6.9 Albumin 3.1 Globulin 3.7 Albumin/Globulin Ratio 0.8 L Assessment & Plan - Assessment and Plan (Free Text) Assessment: 76 y/o male with pmhx Diabetes mellitus, gastritis, peripheral neuropathy, foot drop, atrial fibrillation, diverticulosis, dyslipidemia, HTN, prostate cancer, hemorrhoids, and cecal arteriovenous malformation seen at bedside for diabetic foot care and drop foot Plan: patient evaluated and chart reviewed discussed in detail with attending Dr. Arias labs and vitals reviewed Rx multipodus boots while bedbound patient stable from podiatry standpoint podiatry will continue to monitor while patient remains in house
[2016-10-13] MEDS ORDERED: 0.125% Bupivacaine in 0.9% NS 400mL On Q pump IJ PRN (16:49)
--- NOTE | 2016-10-13 17:14 | CP.PCM.PN ---
Subjective - Date & Time of Evaluation Date of Evaluation: 10/13/16 Time of Evaluation: 16:30 - Subjective Subjective: Infectious Disease Follow Up: October 13, 2016 76 yo male with severe abdominal pain for the past 5 days before his family convinced him to come to the hospital. The patient was found to have appendicitis. Laproscopic appendectomy was attempted but failed when the conditions in the abdomen were noted. The patient was converted into an open appendectomy where he was found to have an ruptured appendix with inflammation of the intestines and adhesion of the tissues within the abdominal cavity. Continuing on IV antibiotics for perforated appendix, abdominal sepsis. Case discussed with Surgery. Patient feeling more comfortable today. Doing relatively well given recent open laparotomy for appendectomy. Objective - Vital Signs/Intake and Output Vital Signs (last 24 hours): Temp Pulse Resp BP Pulse Ox 98.3 F 64 18 133/72 91 L 10/13/16 11:44 10/13/16 14:00 10/13/16 11:44 10/13/16 11:44 10/13/16 06:00 Intake and Output: 10/13/16 10/13/16 06:59 18:59 Intake Total 2450 Output Total 425 Balance 2024 - Medications Medications: Current Medications Acetaminophen (Tylenol 325mg Tab) 650 mg PO Q6H PRN PRN Reason: Fever >100.4 F Atorvastatin Calcium (Lipitor) 10 mg PO DIN [facility] Last Admin: 10/12/16 17:14 Dose: 10 mg Heparin Sodium (Porcine) (Heparin) 5,000 units SC Q12 [facility] PRN Reason: Protocol Last Admin: 10/13/16 09:43 Dose: 5,000 units Hydromorphone HCl (Dilaudid) 1 mg IVP Q3H PRN PRN Reason: Pain, moderate (4-7) Last Admin: 10/13/16 09:43 Dose: 1 mg Metronidazole (Flagyl) 100 mls @ 100 mls/hr IVPB Q8 [facility] PRN Reason: Protocol Last Admin: 10/13/16 15:18 Dose: 100 mls/hr Cefepime HCl (Maxipime 1gm) 100 mls @ 100 mls/hr IVPB Q12 [facility] PRN Reason: Protocol Last Admin: 10/13/16 12:19 Dose: 100 mls/hr Sodium Bicarbonate 75 meq/ (Sodium Chloride) 1,075 mls @ 100 mls/hr IV .[id number] [facility] Last Admin: 10/13/16 15:18 Dose: 100 mls/hr Insulin Human Regular (Humulin R Med) 0 units SC ACHS [facility] PRN Reason: Protocol Last Admin: 10/13/16 12:19 Dose: 7 units Ondansetron HCl (Zofran Inj) 4 mg IVP Q4 PRN PRN Reason: Nausea/Vomiting Last Admin: 10/11/16 12:30 Dose: 4 mg Pantoprazole Sodium (Protonix Ec Tab) 40 mg PO ACB [facility] Last Admin: 10/13/16 09:46 Dose: Not Given Warfarin Sodium (Coumadin) 2 mg PO 1800 [facility] PRN Reason: Protocol Last Admin: 10/12/16 17:13 Dose: 2 mg - Labs Labs: 10/13/16 06:30 10/13/16 06:30 PT 14.4 Seconds (9.9-11.8) H 10/13/16 06:30 INR 1.33 (0.93-1.08) H 10/13/16 06:30 APTT 35.0 Seconds (23.7-30.8) H 10/11/16 07:45 - Constitutional Appears: Non-toxic, No Acute Distress, Chronically Ill - Head Exam Head Exam: ATRAUMATIC, NORMOCEPHALIC - Eye Exam Eye Exam: EOMI, PERRL Pupil Exam: NORMAL ACCOMODATION, PERRL - ENT Exam ENT Exam: Mucous Membranes Moist, Normal External Ear Exam - Neck Exam Neck Exam: Full ROM, Normal Inspection - Respiratory Exam Respiratory Exam: Clear to Ausculation Bilateral, NORMAL BREATHING PATTERN. absent: Rales, Rhonchi, Wheezes - Cardiovascular Exam Cardiovascular Exam: REGULAR RHYTHM, RRR, +S1, +S2 - GI/Abdominal Exam GI & Abdominal Exam: Distended, Soft, Normal Bowel Sounds. absent: Tenderness Additional comments: wrapped. drains in place. diffuse tenderness secondary to surgery/open laparotomy. - Extremities Exam Extremities Exam: Full ROM, Normal Inspection - Neurological Exam Neurological Exam: Alert, Awake, CN II-XII Intact, Oriented x3 - Skin Skin Exam: Intact, Normal Color Additional comments: except for abdominal area. Assessment and Plan - Assessment and Plan (Free Text) Assessment: 76 yo male with abdominal pain found to have ruptured appendix. He required open appendectomy/laparotomy. On Rocephin and Flagyl. Would switch Rocephin to Cefepime for now and continue Flagyl. Supportive care. Await intraoperative cultures. Local wound care. No fevers or leukocytosis during this hospitalization. Overall doing well. No new issues at this time. Mild increase in leukocytosis from 11 to 16 today. Pain management as per surgery. Wound care as per surgery. Family wanted podiatry to evaluate the feet due to previous ulcers. No current ulcerations on the feet now. Supportive care. Thank you for allowing me to participate in the care of the patient, we will follow with you.
[2016-10-13] MEDS ORDERED: Lidocaine 2% Jelly (30 ml) TOP ONE ×2 (17:18→18:00)
--- NOTE | 2016-10-13 18:31 | CP.PCM.PN ---
Subjective - Date & Time of Evaluation Date of Evaluation: 10/13/16 Time of Evaluation: 07:53 - Subjective Subjective: Pt seen and examined. Pt reports that he has moderate pain. Pt reports nausea and reports that he vomited twice over night, and the emesis was green, bilious. Pt reports that he was able to pass gas but has not had a bowel movement. Pt denies fever, chills, chest pain, shortness of breath. Objective - Vital Signs/Intake and Output Vital Signs (last 24 hours): Temp Pulse Resp BP Pulse Ox 97.9 F 68 20 145/65 91 L 10/13/16 17:41 10/13/16 18:00 10/13/16 17:41 10/13/16 17:41 10/13/16 06:00 Intake and Output: 10/13/16 10/13/16 06:59 18:59 Intake Total 2450 Output Total 425 Balance 2024 - Medications Medications: Current Medications Acetaminophen (Tylenol 325mg Tab) 650 mg PO Q6H PRN PRN Reason: Fever >100.4 F Atorvastatin Calcium (Lipitor) 10 mg PO DIN [facility] Last Admin: 10/13/16 18:24 Dose: 10 mg Heparin Sodium (Porcine) (Heparin) 5,000 units SC Q12 [facility] PRN Reason: Protocol Last Admin: 10/13/16 09:43 Dose: 5,000 units Hydromorphone HCl (Dilaudid) 1 mg IVP Q3H PRN PRN Reason: Pain, moderate (4-7) Last Admin: 10/13/16 09:43 Dose: 1 mg Metronidazole (Flagyl) 100 mls @ 100 mls/hr IVPB Q8 [facility] PRN Reason: Protocol Last Admin: 10/13/16 15:18 Dose: 100 mls/hr Cefepime HCl (Maxipime 1gm) 100 mls @ 100 mls/hr IVPB Q12 [facility] PRN Reason: Protocol Last Admin: 10/13/16 12:19 Dose: 100 mls/hr Sodium Bicarbonate 75 meq/ (Sodium Chloride) 1,075 mls @ 100 mls/hr IV .[id number] [facility] Last Admin: 10/13/16 15:18 Dose: 100 mls/hr Insulin Human Regular (Humulin R Med) 0 units SC ACHS [facility] PRN Reason: Protocol Last Admin: 10/13/16 17:56 Dose: Not Given Ondansetron HCl (Zofran Inj) 4 mg IVP Q4 PRN PRN Reason: Nausea/Vomiting Last Admin: 10/11/16 12:30 Dose: 4 mg Pantoprazole Sodium (Protonix Ec Tab) 40 mg PO ACB [facility] Last Admin: 10/13/16 09:46 Dose: Not Given Warfarin Sodium (Coumadin) 2 mg PO 1800 [facility] PRN Reason: Protocol Last Admin: 10/13/16 18:24 Dose: 2 mg - Labs Labs: 10/13/16 06:30 10/13/16 06:30 PT 14.4 Seconds (9.9-11.8) H 10/13/16 06:30 INR 1.33 (0.93-1.08) H 10/13/16 06:30 APTT 35.0 Seconds (23.7-30.8) H 10/11/16 07:45 - Constitutional Appears: No Acute Distress - Head Exam Head Exam: ATRAUMATIC, NORMOCEPHALIC - Eye Exam Eye Exam: EOMI, PERRL - ENT Exam ENT Exam: Mucous Membranes Dry. absent: Mucous Membranes Moist - Respiratory Exam Respiratory Exam: Decreased Breath Sounds. absent: Rales, Rhonchi, Wheezes - Cardiovascular Exam Cardiovascular Exam: +S1, +S2. absent: Gallop, Rubs - GI/Abdominal Exam GI & Abdominal Exam: Soft, Tenderness, Hypoactive Bowel Sounds. absent: Distended, Guarding - Extremities Exam Extremities Exam: absent: Pedal Edema - Neurological Exam Neurological Exam: Alert, Awake, Oriented x3 - Psychiatric Exam Psychiatric exam: Normal Affect, Normal Mood - Skin Skin Exam: Normal Color, Warm Assessment and Plan - Assessment and Plan (Free Text) Assessment: Acute Appendicitis: Day 2 s/p open appendectomy and debridement of abscess; drain in place with serosanguinous fluid Afebrile, nontachycardic WBC - 16.0, trending up Abd/Pelvis CT - acute appendicitis, small bowel dilatation most likely due to ileus (please see full report) Surgery consulted, Dr. Jaramillo, help appreciated. Infectious Disease, Dr. Crystal, consulted. Help appreciated. Maxipime 1 gm IV Q12h as per ID Flagyl IV q8h Wound cultures pending D51/2 IVF 50 cc/hr 2 units of FFP ordered prior to surgery due to supratherapeutic INR Vitamin K 10 mg IV once prior to surgery Zofran 4 mg IV q4h prn for nausea Dilaudid 1 mg IVP q3h prn for pain Tylenol 650 mg po q6h prn for fever > 100.4 Cardiology, Dr. Smith, consulted. Help appreciated. Coagulopathy: INR 1.33 Coumadin 2 mg po qd Acute on Chronic Kidney Injury: Bun/Cr: 80/3.6 NS NaHCO3 100 cc/hr Nephrology, Dr. Jin, consulted. Help appreciated. Pending repeat CPK Losartan held Anemia: H/H: 10.2/30.9 Iron < 10 TIBC -287 Ferritin - 101, normal Folate - 11.3 Diabetes Mellitus: Oral medications held Regular insulin sliding scale Accuchecks Hx of atrial fibrillation: EKG - atrial fibrillation, right bundle branch block Cardizem 240 mg po qd Dyslipidemia: Lipitor 10 mg po din HTN: Losartan held due to acute kidney injury Prophylactic Measures: GI: Protonix 40 mg IV qd DVT: SCDs, Heparin 5000 units sc q12h
--- NOTE | 2016-10-13 20:07 | PN ---
DATE: 10/13/2016 SUBJECTIVE: The patient was seen and evaluated. The family and the patient's daughter were at [facility] at the time of examination. PHYSICAL EXAMINATION: VITAL SIGNS: Temperature 97.9, pulse is 68, blood pressure 145/65. HEENT: Atraumatic, anicteric. NECK: Supple. HEART: S1, S2 heard. LUNGS: Bilateral air entry present. ABDOMEN: Soft. Surgical dressing present. Bowel sounds present. Passing flatus. IMPRESSION: This 76-year-old patient is status post open appendectomy and the patient has a history of atrial fibrillation, on warfarin; acute kidney injury on chronic kidney disease, on intravenous hy dration, improving; history of colonic polyp, arteriovenous malformation, peptic ulcer disease. Foll owup of the hemoglobin and hematocrit. Will continue to closely follow up his care and suggest furth er management based on the clinical course. Paris Goyal MD cc: [phone] TT: 10/13/2016 20:07:21 Confirmation # [id number] Dictation # [id number] mn
--- NOTE | 2016-10-13 21:37 | PCM.URO ---
Urology Progress Note - Objective Lab Results Last 24 Hours: Laboratory Results - last 24 hr 10/13/16 06:30 WBC 16.0 H D RBC 3.33 L Hgb 10.0 L Hct 29.5 L MCV 88.6 MCH 30.0 MCHC 33.9 RDW 14.7 H Plt Count 467 H MPV 9.4 Gran % 87.4 H Lymph % (Auto) 4.5 L Luna % (Auto) 7.7 H Eos % (Auto) 0.2 L Baso % (Auto) 0.2 Gran # 14.02 H Lymph # 0.7 L Luna # 1.2 H Eos # 0.0 Baso # 0.03 PT 14.4 H INR 1.33 H Sodium 139 Potassium 4.3 Chloride 104 Carbon Dioxide 16 L Anion Gap 23 H BUN 80 H Creatinine 3.6 H Est GFR ( Amer) 20 Est GFR (Non-Af Amer) 17 Random Glucose 273 H Calcium 8.4 Phosphorus 5.9 H Magnesium 2.3 H Total Bilirubin 0.7 AST 49 ALT 27 Alkaline Phosphatase 192 H Total Protein 6.9 Albumin 3.1 Globulin 3.7 Albumin/Globulin Ratio 0.8 L Intake & Output: Intake & Output 10/13/16 10/13/16 10/14/16 06:59 18:59 06:59 Intake Total 2450 Output Total 425 Balance 2024 Weight 187 lb Intake: IV 1450 Left Forearm 1450 Oral 1000 Output: Drainage 25 Right Abdomen 25 Urine 400 Urine, Voided 400 Other: # Bowel Movements 0 Vital Signs: Vital Signs - 24 hr 10/12/16 10/13/16 10/13/16 22:00 00:01 02:00 Temperature 98.8 F Pulse Rate 64 77 59 L Respiratory 20 Rate Blood Pressure 153/85 H O2 Sat by Pulse Oximetry 10/13/16 10/13/16 10/13/16 06:00 10:00 11:44 Temperature 98.2 F 98.3 F Pulse Rate 63 55 L 55 L Respiratory 20 18 Rate Blood Pressure 122/60 133/72 O2 Sat by Pulse 91 L Oximetry 10/13/16 10/13/16 10/13/16 14:00 17:41 18:00 Temperature 97.9 F Pulse Rate 64 59 L 68 Respiratory 20 Rate Blood Pressure 145/65 O2 Sat by Pulse Oximetry
[2016-10-14] MEDS: HYDROmorphone 1 mg/ml ISec IVP PRN (01:16)
[2016-10-14] MEDS: metroNIDAZOLE IV 500 mg/100 ml 100 ML IVPB SCH ×3 (05:30→22:01)
[2016-10-14 06:34] LABS: PH,URINE 5.5 (4.7-8.0); URINE BILIRUBIN NEGATIVE (NEGATIVE); URINE BLOOD LARGE (NEGATIVE); URINE GLUCOSE (UA) NEGATIVE (NEGATIVE); URINE KETONE TRACE mg/dL (NEGATIVE); URINE LEUKOCYTE ESTERASE SMALL Leu/uL (NEGATIVE); URINE PROTEIN 30 mg/dL (<30 mg/dL); URINE UROBILINOGEN 0.2 E.U./dL (<1 E.U./dL)
[2016-10-14 06:37] LABS: URINE APPEARANCE SL CLOUDY (CLEAR); URINE COLOR YELLOW (YELLOW)
[2016-10-14 07:03] LABS: URINE AMORPHOUS SEDIMENT FEW; URINE BACTERIA OCC (NEG); URINE EPITHELIAL CELLS 0 - 2 /hpf (0-5)
[2016-10-14 07:22] LABS: ADD MANUAL DIFF? NO
--- NOTE | 2016-10-14 07:25 | CP.PCM.PN ---
Subjective - Date & Time of Evaluation Date of Evaluation: 10/14/16 Time of Evaluation: 06:45 - Subjective Subjective: Surgery Progress note for Dr Jaramillo: Pt seen and examined at bedside. No acute events overnight. Pt states his abdominal pain is well controlled at this time. No episodes of nausea or vomiting. Passing flatus but denies any BMs. Denies any headaches, dizziness, f /c, sob, cp, abd pain, diarrhea or urinary changes. Objective - Vital Signs/Intake and Output Vital Signs (last 24 hours): Temp Pulse Resp BP Pulse Ox 98.0 F 71 22 168/90 H 91 L 10/14/16 06:00 10/14/16 06:00 10/14/16 06:00 10/14/16 06:00 10/13/16 06:00 Intake and Output: 10/14/16 10/14/16 06:59 18:59 Intake Total 0 Output Total 810 Balance -810 - Medications Medications: Current Medications Acetaminophen (Tylenol 325mg Tab) 650 mg PO Q6H PRN PRN Reason: Fever >100.4 F Atorvastatin Calcium (Lipitor) 10 mg PO DIN [facility] Last Admin: 10/13/16 18:24 Dose: 10 mg Heparin Sodium (Porcine) (Heparin) 5,000 units SC Q12 [facility] PRN Reason: Protocol Last Admin: 10/13/16 22:26 Dose: 5,000 units Hydromorphone HCl (Dilaudid) 1 mg IVP Q3H PRN PRN Reason: Pain, moderate (4-7) Last Admin: 10/14/16 01:16 Dose: 1 mg Metronidazole (Flagyl) 100 mls @ 100 mls/hr IVPB Q8 [facility] PRN Reason: Protocol Last Admin: 10/14/16 05:30 Dose: 100 mls/hr Cefepime HCl (Maxipime 1gm) 100 mls @ 100 mls/hr IVPB Q12 [facility] PRN Reason: Protocol Last Admin: 10/13/16 23:21 Dose: 100 mls/hr Sodium Bicarbonate 75 meq/ (Sodium Chloride) 1,075 mls @ 100 mls/hr IV .[id number] [facility] Last Admin: 10/14/16 05:34 Dose: 100 mls/hr Insulin Human Regular (Humulin R Med) 0 units SC ACHS [facility] PRN Reason: Protocol Last Admin: 10/13/16 22:14 Dose: Not Given Ondansetron HCl (Zofran Inj) 4 mg IVP Q4 PRN PRN Reason: Nausea/Vomiting Last Admin: 10/11/16 12:30 Dose: 4 mg Pantoprazole Sodium (Protonix Ec Tab) 40 mg PO ACB [facility] Last Admin: 10/13/16 09:46 Dose: Not Given Warfarin Sodium (Coumadin) 2 mg PO 1800 [facility] PRN Reason: Protocol Last Admin: 10/13/16 18:24 Dose: 2 mg - Labs Labs: 10/13/16 06:30 10/13/16 06:30 PT 14.4 Seconds (9.9-11.8) H 10/13/16 06:30 INR 1.33 (0.93-1.08) H 10/13/16 06:30 APTT 35.0 Seconds (23.7-30.8) H 10/11/16 07:45 - Constitutional Appears: No Acute Distress - Respiratory Exam Respiratory Exam: Clear to Ausculation Bilateral, NORMAL BREATHING PATTERN - Cardiovascular Exam Cardiovascular Exam: REGULAR RHYTHM, +S1, +S2. absent: Murmur - GI/Abdominal Exam GI & Abdominal Exam: Soft, Tenderness (mild), Normal Bowel Sounds - Neurological Exam Neurological Exam: Alert, Awake, CN II-XII Intact Assessment and Plan - Assessment and Plan (Free Text) Assessment: 76 M with perforated acute appendicitis s/p open appendectomy POD 3 - Continue NPO - Will start PPN today - Continue ABX - Cefepime and Flagyl as per ID - Continue IVF - Pain management and antiemetics - Monitor drain output - Serial abd exam - Medical management as per primary team - Encourage ambulation - Encourage use of IS Further recs discuss with Dr Clint Addison IM - PGY1
[2016-10-14 07:26] LABS: BASO # 0.02 K/mm3 (0.0-2.0); BASO % 0.2 % (0.0-3.0); EOS # 0.2 (0.0-0.7); EOS % 1.4 % (1.5-5.0); GRAN # 9.76 (1.4-6.5); GRAN % 84.9 % (50.0-68.0); HEMATOCRIT 28.7 % (42.0-52.0); LYMPH # 0.6 (1.2-3.4); LYMPH % 5.5 % (22.0-35.0); MEAN CELL VOLUME 87.8 fL (80.0-105.0); MEAN CORPUSCULAR HEMOGLOBIN 29.7 pg (25.0-35.0); MEAN CORPUSCULAR HGB CONC 33.8 g/dl (31.0-37.0); MEAN PLATELET VOLUME 8.9 fl (7.0-11.0); MONO # 0.9 (0.1-0.6); PLATELET COUNT 454 10^3/uL (120.0-450.0); RED CELL DISTRIBUTION WIDTH 14.8 % (11.5-14.5); WHITE BLOOD COUNT 11.5 10^3/ul (4.5-11.0)
[2016-10-14 08:11] LABS: ALB/GLOB RATIO 0.9 (1.1-1.8); BILIRUBIN,TOTAL 0.7 mg/dL (0.2-1.3); CALCIUM 8.5 mg/dL (8.4-10.5); MAGNESIUM 2.3 mg/dL (1.7-2.2); PHOSPHOROUS 4.8 mg/dL (2.5-4.5); POTASSIUM 3.5 mmol/L (3.6-5.0); TOTAL PROTEIN 6.9 g/dL (5.8-8.3)
[2016-10-14] MEDS: Insulin Reg-MEDIUM-Coverage SC SCH ×4 (08:44→22:03)
[2016-10-14] MEDS: Pantoprazole 40 mg EC Tab PO SCH (08:44)
[2016-10-14 08:52] LABS: INR 1.73 (0.93-1.08)
--- NOTE | 2016-10-14 09:04 | CON ---
DATE: 10/13/2016 CONSULTATION REQUESTED BY: Liya Wahl MD. REASON FOR CONSULTATION: Acute renal failure, stage III chronic kidney disease, metabolic acidosis, and anemia. HISTORY OF PRESENT ILLNESS: The patient is a 76-year-old gentleman. He presented to [facility]'s Emergency Department on 10/10 with complaint of lower abdominal pain of 4 days' duration, as well as nausea, and 1 episode of nonbilious and nonbloody vomiting. He stated that 1 month ago, he had bright red blood per rectum and underwent EGD and colonoscopy, and based on the findings, was con verted from Xarelto to Coumadin (the patient has a known history of atrial fibrillation). On arrival to the Emergency Department, he was noted to have a blood pressure of 113/____ with a hear t rate of 103, breathing at 18 breaths per minute with an oxygen saturation of 99%. He was afebrile. Physical exam revealed mild right lower quadrant tenderness, but without any peritoneal signs. CT scan of the abdomen and pelvis was performed without intravenous contrast, which showed acute appe ndicitis, as well as small-bowel dilatation thought to be secondary to an ileus. LABORATORY STUDIES: Had revealed a BUN/creatinine of 91/4.6 with the patient's creatinine 1 month ea rlier 2.4, and his baseline appears to be in the low 2s, corresponding to stage IIIB chronic kidney d isease. Urinalysis revealed a specific gravity of 1.020 with moderate blood, but only 2-5 RBCs per h igh-powered field. There was no white blood cell count, but there was neutrophilia. There was no ba ndemia noted. Bladder ultrasound was performed, which revealed a postvoid residual volume of 326 mL for which a Fol ey catheter was ultimately placed. The patient, subsequently, underwent an appendectomy, and intraop eratively, was noted to not only have acute appendicitis but abscess as well as perforation. He was, subsequently, transferred out to telemetry. Of note, over the course of the hospitalization, the patient's renal function had been improving, and his creatinine has decreased to 3.1. Today, however, it has increased to 3.6 on the second postoper ative day. He has been receiving D5W. Review of the vital signs do not demonstrate any significant hemodynamic instability. He has not had any IV contrast during this hospitalization and is not on any nephrotoxic medications nor was he on any prior to admission, although he it is noted that he had been on losartan with minimal oral intake . Reportedly, his surgery was on the longer side. When I saw the patient, he was eager to have his Brady catheter removed, and his family was threateni ng to remove it themselves if it was not done so immediately. The patient denied any diarrhea, and h e also had any ongoing nausea or vomiting. REVIEW OF SYSTEMS: Taken across all 10 systems in 14 points and was negative unless stated otherwise above. PAST MEDICAL HISTORY: Significant for type 2 diabetes mellitus on oral hypoglycemic agents, hyperten travis, dyslipidemia, stage IIIB CKD with a baseline creatinine of approximately 2, atrial fibrillation for which he was recently converted from Xarelto to Coumadin, prostate cancer, history of GI bleedin g, EGD that had revealed esophagitis, gastritis, and a colonoscopy that had revealed diverticulosis w ith cecal arteriovenous malformations as well as hemorrhoids. MEDICATIONS: Medications that the patient is currently receiving include warfarin 2 mg orally daily, Dilaudid 1 mg intravenously every 3 hours as needed, Flagyl 500 mg intravenously every 8 hours, hepa rin 5000 units subcutaneously twice daily, atorvastatin 10 mg orally daily, regular insulin coverage with sliding scale, cefepime 1 gram intravenously twice daily, pantoprazole 40 mg daily, D5W at 100 m L per hour, Zofran 4 mg intravenously every 6 hours, and Tylenol 650 mg orally every 6 hours as neede d. ALLERGIES: The patient had no known drug allergies. SOCIAL HISTORY: Notable for the patient having smoked 2-3 packs per day, but he states that he quit 2 years ago. He used to drink alcohol excessively, but now he states that he only drinks approximate ly 2 days per week. He denied any illicit drug use. FAMILY HISTORY: Significant for type 2 diabetes mellitus, as well as hypertension, but he denied fam fidelina history of chronic kidney disease or end-stage renal disease. PHYSICAL EXAMINATION: GENERAL APPEARANCE: I saw the patient on telemetry. He was surrounded by his daughter and daughter- in-law. He appeared to be rather cantankerous when I saw him, but he had no somatic complaints. VITAL SIGNS: Blood pressure is 145/65, heart rate 59. Oral temperature is 97.9. Respiratory rate i s 18. I's and O's were documented as 2400/425. The remainder of the exam was as follows: HEENT: The patient was normocephalic, atraumatic. There was no sinus tenderness that I could apprec iate. There was no jugular venous distention. He did appear to be chronically ill, however. LUNGS: Lung stephenson on my exam were grossly clear to auscultation, but breath sounds were somewhat di stant. CARDIAC: Showed that he was irregularly irregular without any rubs. There were no heaves. ABDOMEN: Soft, distended with hypoactive bowel sounds, but there was no tenderness. There was no re bounding, guarding, or rigidity. EXTREMITIES: Had 1+ edema. GENITOURINARY: Notable for the presence of a Brady catheter with light-colored urine. NEUROLOGIC: He was nonfocal. VASCULAR: Had no bruits. LABORATORY STUDIES: White count is 16,000. H and H is 10/29.5 with a platelet count of 467,000. Th ere are 87% neutrophils, 5% lymphocytes, 8% monocytes. Sodium is 139. Potassium is 4.3. Chloride i s 104, bicarbonate 16. BUN/creatinine is 80/3.6 with a glucose of 273. Hemoglobin A1c was 7.7. Tot al protein/albumin is 6.9/3.1 Corrected calcium is 9.2. Phosphorus is 5.9. Magnesium is 2.3. CPK w as 493. INR is now 1.33. Most recent PTT is 35. Urinalysis was yellow, clear with a pH of 6.0, spe cific gravity of 1.020, trace protein, moderate blood with 2-5 RBCs per high-powered field. There is no new culture data to report, and there is no imaging either. IMPRESSION AND PLAN: The patient is a 76-year-old gentleman with type 2 diabetes mellitus that is no t controlled and for which he was on oral hypoglycemic agents prior to admission, hypertension, dysli pidemia, stage III chronic kidney disease with a baseline creatinine in the high 1's, atrial fibrilla tion, prostate cancer, history of gastrointestinal bleeding while on Xarelto with EKG revealing esoph agitis, gastritis, and colonoscopy revealing diverticulosis with cecal arteriovenous malformations, a s well as hemorrhoids, after which the patient was converted from Xarelto to Coumadin, stage III oil process stillman paty kidney disease with a baseline creatinine of approximately 2, who was admitted with abdominal alicia n, nausea, vomiting, and found to have acute kidney injury superimposed on his stage IIIB chronic kid peyton disease. Imaging revealed appendicitis for which the patient underwent appendectomy where he was found to have a ruptured appendix with abscess formation. During this hospitalization, he was noted to have urinary retention with a postvoid residual of over 300 mL of urine for which a Brady cathete r was inserted, after which his acute kidney injury had improved, but his acute kidney injury is now worsening. It is noted that he is currently on D5W at 100 mL per hour and has become increasingly hy poglycemic. I suspect that the patient underwent a fair amount of insensible fluid losses in the operating room. In light of this, I do not believe D5W is sufficient for this patient. Moreover, the dextrose is re sulting hyperglycemia, and this can result in free water losses in the urine as a result. Given the fact that the patient also has metabolic acidosis, I would like to bring his intravenous fluids up to isotonic for now, and we will change them to 1/2 normal saline with 75 mEq of sodium bicarbonate per liter at 75 mL per hour. Given the fact that he had urinary retention during this hospitalization p rior to removal of the Brady catheter, I would start the patient on Flomax as well as possibly Prosca r so that he would every chance of success once his Brady catheter is removed. Ultimately, we need t o keep his bicarbonate above 22 for the sake of long-term management of his chronic kidney disease, a nd after he is off the sodium bicarbonate infusion, if his bicarbonate level is still not at goal, we can then start the patient on oral sodium bicarbonate. With respect to his anemia, if his hemoglobin drops any further, we will start the patient on Aranesp . Patients with chronic kidney disease have a goal hemoglobin of between 10-11. GI followup is appr eciated in this patient, and they are following his hemoglobin to see that it remains stable. Infect ious disease followup is appreciated as well, and in addition to ceftriaxone and Flagyl, cefepime has been added as well since he did undergo open appendectomy with laparotomy. To confirm that he is in a prerenal state, we will repeat his urinalysis as well as urine electrolytes, and I suspect that hi s fractional excretion of sodium will be less than 1%. Warfarin is to continue with a goal INR of between 2-3 given the fact that the patient has a known hi story of atrial fibrillation. For GI prophylaxis, he is on pantoprazole. As his INR increases, his subcutaneous heparin can be discontinued since therapeutic INR would suffice for deep venous thrombos is prophylaxis. The above was discussed with the patient as well as his daughter is present at bedside. I will be fo llowing this complex patient closely for the above complex medical problems. I thank you very much for the courtesy of this consultation. Willis Jin MD cc: [phone] TT: 10/14/2016 09:03:29 Confirmation # [id number] Dictation # [id number]
[2016-10-14] MEDS ORDERED: Albuterol-Ipratrop 3 mg / 0.5 (3 ml) UD IH PRN (09:15)
[2016-10-14] MEDS ORDERED: Potassium Chloride 20 mEq ER Tab PO ONE (09:21)
--- NOTE | 2016-10-14 10:40 | RAD ---
HISTORY: Dyspnea COMPARISON: Comparison is made to the previous study dated 10/10/2016 FINDINGS: LUNGS: Interval worsening of bilateral perihilar opacities and haziness more prominent on the left. The possibility of left lung infiltrate is not totally excluded. Otherwise no interval change in the lungs. PLEURA: No significant pleural effusion identified, no pneumothorax apparent. CARDIOVASCULAR: Cardiomegaly is again noted. Mild widening of the mediastinum is again noted. OSSEOUS STRUCTURES: No significant abnormalities. VISUALIZED UPPER ABDOMEN: Normal. OTHER FINDINGS: None. IMPRESSION: Worsening opacities specially on the left since the previous exam. The possibility of infiltrate/pneumo in the left lung is not totally excluded. Please correlate clinically for infectious process.
[2016-10-14] MEDS: Cefepime 1gm in NS 100ml 100 ML IVPB SCH ×2 (11:04→22:02)
[2016-10-14] MEDS ORDERED: HYDROmorphone 0.5 mg/0.5 ml ISec IVP PRN (13:12)
--- NOTE | 2016-10-14 14:42 | PN ---
DATE: 10/14/2016 The patient is rather agitated this morning. He is afebrile but has a lot of phlegm. Blood pressure 170/90. His abdomen is distended. His drain ____ is 5 mL. It is serous, not infected. The abdome n is soft but distended. His dressing was changed. LABORATORY DATA: White count is down to 11. BUN 83, creatinine 3.6. He has a lot of phlegm. A chest x-ray which is done shows a very distended abdomen with lots of loop s of bowel, but no pneumonia that I can see. The patient was seen by Dr. Lara. There is no plan, impression or physical exam noted. The Brady is still in place. Try to speak to him. s Abner Jaramillo MD cc: [phone] TT: 10/14/2016 14:42:02 Confirmation # [id number] Dictation # [id number]
--- NOTE | 2016-10-14 17:03 | CP.PCM.PN ---
Subjective - Date & Time of Evaluation Date of Evaluation: 10/14/16 Time of Evaluation: 15:30 - Subjective Subjective: Infectious Disease Follow Up: October 14, 2016 76 yo male with severe abdominal pain for the past 5 days before his family convinced him to come to the hospital. The patient was found to have appendicitis. Laproscopic appendectomy was attempted but failed when the conditions in the abdomen were noted. The patient was converted into an open appendectomy where he was found to have an ruptured appendix with inflammation of the intestines and adhesion of the tissues within the abdominal cavity. Continuing on IV antibiotics for perforated appendix, abdominal sepsis. Case discussed with Surgery. Patient feeling more comfortable today. Cultures showing light growth of gram negative rods from intraoperative cultures. Doing relatively well given recent open laparotomy for appendectomy. Objective - Vital Signs/Intake and Output Vital Signs (last 24 hours): Temp Pulse Resp BP Pulse Ox 98.3 F 82 20 156/80 H 91 L 10/14/16 12:00 10/14/16 12:00 10/14/16 12:00 10/14/16 12:00 10/13/16 06:00 Intake and Output: 10/14/16 10/14/16 06:59 18:59 Intake Total 0 Output Total 810 Balance -810 - Medications Medications: Current Medications Acetaminophen (Tylenol 325mg Tab) 650 mg PO Q6H PRN PRN Reason: Fever >100.4 F Albuterol/Ipratropium (Duoneb 3 Mg/0.5 Mg (3 Ml) Ud) 3 ml IH [id number] PRN PRN Reason: Wheezing Last Admin: 10/14/16 11:49 Dose: 3 ml Atorvastatin Calcium (Lipitor) 10 mg PO DIN [facility]ER Last Admin: 10/13/16 18:24 Dose: 10 mg Diphenhydramine HCl (Benadryl) 25 mg PO HS PRN PRN Reason: Insomnia Heparin Sodium (Porcine) (Heparin) 5,000 units SC Q12 [facility]ER PRN Reason: Protocol Last Admin: 10/14/16 11:03 Dose: 5,000 units Hydromorphone HCl (Dilaudid) 0.5 mg IVP Q4H PRN PRN Reason: Pain, moderate (4-7) Last Admin: 10/14/16 13:43 Dose: 0.5 mg Metronidazole (Flagyl) 100 mls @ 100 mls/hr IVPB Q8 [facility] PRN Reason: Protocol Last Admin: 10/14/16 15:14 Dose: 100 mls/hr Cefepime HCl (Maxipime 1gm) 100 mls @ 100 mls/hr IVPB Q12 [facility]ARKER PRN Reason: Protocol Last Admin: 10/14/16 11:04 Dose: 100 mls/hr Sodium Bicarbonate 75 meq/ (Sodium Chloride) 1,075 mls @ 100 mls/hr IV .[id number] [facility] Last Admin: 10/14/16 05:34 Dose: 100 mls/hr Insulin Human Regular (Humulin R Med) 0 units SC ACHS [facility]ER PRN Reason: Protocol Last Admin: 10/14/16 12:43 Dose: 5 units Ondansetron HCl (Zofran Inj) 4 mg IVP Q4 PRN PRN Reason: Nausea/Vomiting Last Admin: 10/11/16 12:30 Dose: 4 mg Pantoprazole Sodium (Protonix Ec Tab) 40 mg PO ACB [facility] Last Admin: 10/14/16 08:44 Dose: 40 mg Warfarin Sodium (Coumadin) 2 mg PO 1800 [facility] PRN Reason: Protocol Last Admin: 10/13/16 18:24 Dose: 2 mg - Labs Labs: 10/14/16 06:00 10/14/16 06:00 PT 18.7 Seconds (9.9-11.8) H 10/14/16 08:20 INR 1.73 (0.93-1.08) H 10/14/16 08:20 APTT 38.0 Seconds (23.7-30.8) H 10/14/16 08:20 - Constitutional Appears: Non-toxic, No Acute Distress - Head Exam Head Exam: ATRAUMATIC, NORMOCEPHALIC - Eye Exam Eye Exam: EOMI, PERRL Pupil Exam: NORMAL ACCOMODATION, PERRL - ENT Exam ENT Exam: Mucous Membranes Moist, Normal External Ear Exam, TM's Normal Bilaterally - Neck Exam Neck Exam: Full ROM, Normal Inspection - Respiratory Exam Respiratory Exam: Clear to Ausculation Bilateral, NORMAL BREATHING PATTERN. absent: Rales, Rhonchi, Wheezes - Cardiovascular Exam Cardiovascular Exam: REGULAR RHYTHM, RRR, +S1, +S2 - GI/Abdominal Exam GI & Abdominal Exam: Distended, Soft, Normal Bowel Sounds. absent: Tenderness Additional comments: s/p abdominal surgery - open laparotomy. - Extremities Exam Extremities Exam: Full ROM, Normal Inspection - Neurological Exam Neurological Exam: Alert, Awake, CN II-XII Intact, Oriented x3 - Psychiatric Exam Psychiatric exam: Normal Affect, Normal Mood - Skin Skin Exam: Intact, Normal Color Additional comments: except for abdominal area. Assessment and Plan - Assessment and Plan (Free Text) Assessment: 76 yo male with abdominal pain found to have ruptured appendix. He required open appendectomy/laparotomy. On Rocephin and Flagyl. Would switch Rocephin to Cefepime for now and continue Flagyl. Supportive care. Await intraoperative cultures. Local wound care. No fevers or leukocytosis during this hospitalization. Overall doing well. No new issues at this time. Mild increase in leukocytosis from 11 to 16 today. Pain management as per surgery. Wound care as per surgery. Family wanted podiatry to evaluate the feet due to previous ulcers. No current ulcerations on the feet now. Supportive care. Noted the patient with mild wheezing and occasional shortness of breath today. Intraoperative cultures showing light gram negative lissa growth. Thank you for allowing me to participate in the care of the patient, we will follow with you.
--- NOTE | 2016-10-14 17:09 | CP.PCM.PN ---
<Dwight Streeter - Last Filed: 10/14/16 17:06> Subjective - Date & Time of Evaluation Date of Evaluation: 10/14/16 Time of Evaluation: 09:36 - Subjective Subjective: Pt seen and examined. Pt complaining of diffuse lower abdominal pain and nausea. Pt reports that he has not vomited today. Pt reports that he has not passed gas today or had a bowel movement. Pt also reports that he has a dry cough. He also reports lorraine the is slightly short of breath. Pt denies fever, chills, headache, diarrhea. Objective - Vital Signs/Intake and Output Vital Signs (last 24 hours): Temp Pulse Resp BP Pulse Ox 98 F 71 22 184/96 H 95 10/14/16 16:36 10/14/16 16:36 10/14/16 16:36 10/14/16 16:36 10/14/16 16:36 Intake and Output: 10/14/16 10/14/16 06:59 18:59 Intake Total 0 Output Total 810 Balance -810 - Medications Medications: Current Medications Acetaminophen (Tylenol 325mg Tab) 650 mg PO Q6H PRN PRN Reason: Fever >100.4 F Albuterol/Ipratropium (Duoneb 3 Mg/0.5 Mg (3 Ml) Ud) 3 ml IH [id number] PRN PRN Reason: Wheezing Last Admin: 10/14/16 11:49 Dose: 3 ml Atorvastatin Calcium (Lipitor) 10 mg PO DIN [facility] Last Admin: 10/13/16 18:24 Dose: 10 mg Diphenhydramine HCl (Benadryl) 25 mg PO HS PRN PRN Reason: Insomnia Glyburide (Micronase) 5 mg PO BID [facility] Heparin Sodium (Porcine) (Heparin) 5,000 units SC Q12 [facility] PRN Reason: Protocol Last Admin: 10/14/16 11:03 Dose: 5,000 units Hydralazine HCl (Apresoline) 10 mg IVP Q6 [facility] Hydromorphone HCl (Dilaudid) 0.5 mg IVP Q4H PRN PRN Reason: Pain, moderate (4-7) Last Admin: 10/14/16 13:43 Dose: 0.5 mg Metronidazole (Flagyl) 100 mls @ 100 mls/hr IVPB Q8 [facility] PRN Reason: Protocol Last Admin: 10/14/16 15:14 Dose: 100 mls/hr Cefepime HCl (Maxipime 1gm) 100 mls @ 100 mls/hr IVPB Q12 [facility] PRN Reason: Protocol Last Admin: 10/14/16 11:04 Dose: 100 mls/hr Sodium Bicarbonate 75 meq/ (Sodium Chloride) 1,075 mls @ 100 mls/hr IV .[id number] [facility] Last Admin: 10/14/16 05:34 Dose: 100 mls/hr Insulin Human Regular (Humulin R Med) 0 units SC ACHS [facility] PRN Reason: Protocol Last Admin: 10/14/16 12:43 Dose: 5 units Losartan Potassium (Cozaar) 50 mg PO DAILY [facility] Ondansetron HCl (Zofran Inj) 4 mg IVP Q4 PRN PRN Reason: Nausea/Vomiting Last Admin: 10/11/16 12:30 Dose: 4 mg Pantoprazole Sodium (Protonix Ec Tab) 40 mg PO ACB [facility] Last Admin: 10/14/16 08:44 Dose: 40 mg Warfarin Sodium (Coumadin) 2 mg PO 1800 [facility] PRN Reason: Protocol Last Admin: 10/13/16 18:24 Dose: 2 mg - Labs Labs: 10/14/16 06:00 10/14/16 06:00 PT 18.7 Seconds (9.9-11.8) H 10/14/16 08:20 INR 1.73 (0.93-1.08) H 10/14/16 08:20 APTT 38.0 Seconds (23.7-30.8) H 10/14/16 08:20 - Constitutional Appears: No Acute Distress - Head Exam Head Exam: ATRAUMATIC, NORMOCEPHALIC - Eye Exam Eye Exam: EOMI, PERRL - ENT Exam ENT Exam: Mucous Membranes Moist. absent: Mucous Membranes Dry - Respiratory Exam Respiratory Exam: Wheezes - Cardiovascular Exam Cardiovascular Exam: Irregular Rhythm - GI/Abdominal Exam GI & Abdominal Exam: Soft, Tenderness. absent: Distended, Guarding - Extremities Exam Extremities Exam: Full ROM. absent: Pedal Edema - Neurological Exam Neurological Exam: Alert, Awake, Oriented x3 - Psychiatric Exam Psychiatric exam: Anxious - Skin Skin Exam: Normal Color, Warm Assessment and Plan - Assessment and Plan (Free Text) Assessment: Acute Appendicitis: Day 3 s/p open appendectomy and debridement of abscess; drain in place with serosanguinous fluid Afebrile, nontachycardic WBC - 11.5, trending down Abd/Pelvis CT - acute appendicitis, small bowel dilatation most likely due to ileus (please see full report) Surgery consulted, Dr. Jaramillo, help appreciated. Infectious Disease, Dr. Crystal, consulted. Help appreciated. Maxipime 1 gm IV Q12h as per ID Flagyl IV q8h Wound cultures showing gram negative rods NS NaHCO3 100 cc/hr Zofran 4 mg IV q4h prn for nausea Dilaudid 0.5 mg IVP q4h prn for pain Tylenol 650 mg po q6h prn for fever > 100.4 Cardiology, Dr. Smith, consulted. Help appreciated. Possible Pneumonia: CXR - worsening opacities on the left since previous exam; possiblity of infiltrates/pneumo on left lung not excluded (please see full report) Duonebs q4h for wheezing Coagulopathy: INR 1.73 Coumadin 2 mg po qd Acute on Chronic Kidney Injury: Bun/Cr: 83/3.6 NS NaHCO3 100 cc/hr Nephrology, Dr. Jin, consulted. Help appreciated. Anemia: H/H: 9.7/28.7 Iron < 10 TIBC -287 Ferritin - 101, normal Folate - 11.3 Diabetes Mellitus: Oral medications held Regular insulin sliding scale Accuchecks Hx of atrial fibrillation: EKG - atrial fibrillation, right bundle branch block Cardizem 240 mg po qd Dyslipidemia: Lipitor 10 mg po din HTN: Losartan 50 mg po qd Prophylactic Measures: GI: Protonix 40 mg IV qd DVT: SCDs, Heparin 5000 units sc q12h <Layton Ríos - Last Filed: 10/14/16 18:35> Objective - Vital Signs/Intake and Output Vital Signs (last 24 hours): Temp Pulse Resp BP Pulse Ox 98 F 79 22 184/96 H 95 10/14/16 16:36 10/14/16 17:41 10/14/16 16:36 10/14/16 17:41 10/14/16 16:36 Intake and Output: 10/14/16 10/14/16 06:59 18:59 Intake Total 0 Output Total 810 Balance -810 - Medications Medications: Current Medications Acetaminophen (Tylenol 325mg Tab) 650 mg PO Q6H PRN PRN Reason: Fever >100.4 F Albuterol/Ipratropium (Duoneb 3 Mg/0.5 Mg (3 Ml) Ud) 3 ml IH [id number] PRN PRN Reason: Wheezing Last Admin: 10/14/16 11:49 Dose: 3 ml Albuterol/Ipratropium (Duoneb 3 Mg/0.5 Mg (3 Ml) Ud) 3 ml IH [id number] [facility] Atorvastatin Calcium (Lipitor) 10 mg PO DIN [facility] Last Admin: 10/14/16 17:43 Dose: 10 mg Diltiazem HCl (Cardizem Cd) 120 mg PO DAILY [facility] Last Admin: 10/14/16 17:41 Dose: 120 mg Diphenhydramine HCl (Benadryl) 25 mg PO HS PRN PRN Reason: Insomnia Glyburide (Micronase) 5 mg PO BID [facility] Last Admin: 10/14/16 17:43 Dose: 5 mg Heparin Sodium (Porcine) (Heparin) 5,000 units SC Q12 [facility] PRN Reason: Protocol Last Admin: 10/14/16 11:03 Dose: 5,000 units Hydralazine HCl (Apresoline) 10 mg IVP Q6 [facility] Last Admin: 10/14/16 17:38 Dose: 10 mg Hydromorphone HCl (Dilaudid) 0.5 mg IVP Q4H PRN PRN Reason: Pain, moderate (4-7) Last Admin: 10/14/16 13:43 Dose: 0.5 mg Metronidazole (Flagyl) 100 mls @ 100 mls/hr IVPB Q8 [facility] PRN Reason: Protocol Last Admin: 10/14/16 15:14 Dose: 100 mls/hr Cefepime HCl (Maxipime 1gm) 100 mls @ 100 mls/hr IVPB Q12 [facility] PRN Reason: Protocol Last Admin: 10/14/16 11:04 Dose: 100 mls/hr Sodium Bicarbonate 75 meq/ (Sodium Chloride) 1,075 mls @ 100 mls/hr IV .[id number] [facility] Last Admin: 10/14/16 05:34 Dose: 100 mls/hr Insulin Human Regular (Humulin R Med) 0 units SC ACHS [facility] PRN Reason: Protocol Last Admin: 10/14/16 17:42 Dose: 3 units Ondansetron HCl (Zofran Inj) 4 mg IVP Q4 PRN PRN Reason: Nausea/Vomiting Last Admin: 10/11/16 12:30 Dose: 4 mg Pantoprazole Sodium (Protonix Ec Tab) 40 mg PO ACB [facility] Last Admin: 10/14/16 08:44 Dose: 40 mg Warfarin Sodium (Coumadin) 2 mg PO 1800 [facility] PRN Reason: Protocol Last Admin: 10/14/16 17:42 Dose: 2 mg - Labs Labs: 10/14/16 06:00 10/14/16 06:00 PT 18.7 Seconds (9.9-11.8) H 10/14/16 08:20 INR 1.73 (0.93-1.08) H 10/14/16 08:20 APTT 38.0 Seconds (23.7-30.8) H 10/14/16 08:20 Assessment and Plan - Assessment and Plan (Free Text) Assessment: Attending note; I have seen and examined patient at bedside with the resident. This is a 76 year old male with history of DM-2, gastritis, peripheral neuropathy, foot drop, atrial fibrillation, diverticulosis, dyslipidemia, HTN, prostate cancer, hemorrhoids, cecal AVM, former heavy smoker, anal fissure repair who got admitted for acute appendicitis. status post open surgery with drain placement by Dr. Jaramillo. started on clear liquid diet. Hypertension; started on Cardizem. Hold losartan. diabetes; Start glipizide with regular insulin sliding scale. Chronic kidney disease; creatinine is 3.6. Case discussed with nephrology in detail. Cough; continue DuoNeb treatment. Chest x-ray showed perihilar atelectasis. Pulmonary evaluation requested. Patient was taken to OR yesterday and found to have perforated appendicitis and underwent open appendectomy. SUE drain in place. Patient is on clear liquid diet. Will continue cefepime and flagyl as per ID. atrial fibrillation; continue Coumadin. monitor INR daily. continue Brady catheter per Dr. Lara. Discussed with Dr Jaramillo In detail. case discussed with PMD in detail. Attending/Attestation - Attestation I have personally seen and examined this patient.: Yes I have fully participated in the care of the patient.: Yes I have reviewed all pertinent clinical information, including history, physical exam and plan: Yes
[2016-10-14] MEDS: diltiaZEM 120 mg/24 Hours CD Cap PO SCH (17:41)
--- NOTE | 2016-10-14 19:04 | RAD ---
HISTORY: pneumonia COMPARISON: Plain radiographs performed earlier the same day FINDINGS: LUNGS: There are persistent low lung volumes. There is bibasilar atelectasis. There is patchy opacities in both lungs. PLEURA: No significant pleural effusion identified, no pneumothorax apparent. CARDIOVASCULAR: The cardiomediastinal silhouette is stable. OSSEOUS STRUCTURES: No significant abnormalities. VISUALIZED UPPER ABDOMEN: Normal. OTHER FINDINGS: There is severe gaseous distension of the colon. IMPRESSION: Persistent low lung volumes. Patchy opacities in the lungs may represent multifocal pneumonia. Follow-up PA and lateral chest radiographs are recommended. Persistent severe gaseous distention of the colon.
[2016-10-14] MEDS: Budesonide 0.5 mg/2 ml Inhal Susp UD IH SCH (19:31)
[2016-10-14] MEDS: Albuterol-Ipratrop 3 mg / 0.5 (3 ml) UD IH SCH ×2 (19:31→23:15)
--- NOTE | 2016-10-14 20:42 | CON ---
DATE: 10/14/2016 HISTORY OF PRESENT ILLNESS: The patient seen and examined at bedside. This is a 76-year-old gentleman with history of diabetes mellitus, hypertension, history of prostate cancer, atrial fibrillation, peripheral neuropathy and gastritis, who came with severe abdominal pain on 10/11 that lasted for 5 days prior to admission to [facility]. Subsequent workup including abdominal CAT scan revealed appendicitis. That led to ex-lap with appendectomy and washout. The patient did develop postoperative ileus. However, started passing gas several days later and presently reports that the last time he passed gas was early in the afternoon. The patient has fluctuating respiratory status and on recent chest x-ray was found to have elevated both hemidiaphragms as well as persistent dilated loops of the bowel. There is no distinct infiltrate, however. Because of the patient's shortness of breath and some wheezing, pulmonary consult was called for further management and monitoring. Of note, the patient is an ex-smoker. He quit about 2 years ago. However, never been formally diagnosed with COPD nor has been treated for it. The patient denies nausea, vomiting, diarrhea or constipation. PAST MEDICAL HISTORY: Atrial fibrillation, diabetes, hypertension, prostate cancer, gastritis, diabetic nephropathy. FAMILY HISTORY: Noncontributory. SOCIAL HISTORY: No alcohol or illicit drug abuse. The patient is an ex- smoker. He quit smoking 2 years ago, but prior to that smoked "almost entire life." MEDICATIONS IN THE HOSPITAL: Hydralazine 10 mg IV q. 6, Benadryl p.r.n., warfarin 2 mg p.o. daily, Cozaar, Dilaudid p.r.n., Dulcolax, Flagyl, heparin 5000 subQ q. 12, regular insulin sliding scale medium protocol, Lipitor, cefepime, Micronase, Protonix, Zofran p.r.n. REVIEW OF SYSTEMS: Review of 12 organ system other than mentioned in history of present illness is negative. ALLERGIES: NKDA. PHYSICAL EXAMINATION: VITAL SIGNS: Oxygen saturation 94% on 2 liters nasal cannula, temperature 98, blood pressure 184/96, heart rate 71, respiratory rate 22. HEAD AND NECK: Atraumatic. LUNGS: A few scattered wheezes bilaterally. HEART: Regular rate and rhythm. S1, S2 normal. ABDOMEN: Soft. Bowel sounds present, nontender, mildly distended. Bandage applied in the abdomen. NEUROLOGIC: The patient moves all extremities spontaneously. SKIN: Moist. PSYCHIATRIC: The patient is alert and oriented x 3, not in respiratory or otherwise distress. LABORATORY DATA: WBC 11.5 down from 16, hemoglobin 9.7, platelet count 454. Sodium 140, potassium 3.5 (supplemented), chloride 105, carbon dioxide 19, BUN 83, creatinine 3.6 (patient does have a history of chronic kidney disease as per Dr. Jin' note). Glucose 211. AST 42, ALT 30, albumin 3.2. INR 1.7 to 3. ASSESSMENT AND PLAN: This is a 76-year-old gentleman with likely undiagnosed chronic obstructive pulmonary disease, now status post exploratory laparotomy with appendectomy presented with wheezing and some shortness of breath on mild to moderate exertion. At the present time, we will proceed with ABGs, daily chest x-ray, BiPAP at night. I will also proceed with inhaled corticosteroids and bronchodilators. I spoke with Dr. Tristen Crystal (ID service) who is a little bit cautious about starting low dose systemic steroids until cultures are available. I will also proceed with out of bed to chair physical therapy, continuous pain control, incentive spirometer, chest PT, DVT and GI prophylaxis. The patient is on antibiotics and septic workup is in progress. He started passing gas and resolution of ileus would may also improve his respiratory status: prevent hemidiaphragm elevation-->increase lung volumes---> increase FRC--->decrease airway resistance. Will follow. Addendum: Patient refused ABG and BPAP, reportedly was counselled about risks and benefits of his decision. Reportedly verbalized understanding. Sukumar Sky MD cc: [id number] TT: 10/14/2016 20:40:44 Confirmation # [id number] Dictation # [id number] galo CORREIA
--- NOTE | 2016-10-15 00:12 | CP.PCM.PN ---
<MiladysHollieSheela - Last Filed: 10/15/16 00:08> Subjective - Date & Time of Evaluation Date of Evaluation: 10/15/16 Time of Evaluation: 00:08 - Subjective Subjective: LUIS lockwood stated that Dr. Lara wanted resident to evaluate pt for agitation. Pt told me that he could not tolerate bipap due to the size of mask. He remembered his tiny pillow and asked me to hand it to him. Pt is AAOx3. cooperative. No acute pain. He stated that his breathing is a little uneasy. POx is 96 on 3L NC. other VS stable. Objective - Vital Signs/Intake and Output Vital Signs (last 24 hours): Temp Pulse Resp BP Pulse Ox 98 F 64 22 184/96 H 95 10/14/16 16:36 10/14/16 22:22 10/14/16 16:36 10/14/16 17:41 10/14/16 16:36 Intake and Output: 10/14/16 10/15/16 18:59 06:59 Intake Total 240 Output Total 650 Balance -410 - Medications Medications: Current Medications Acetaminophen (Tylenol 325mg Tab) 650 mg PO Q6H PRN PRN Reason: Fever >100.4 F Albuterol/Ipratropium (Duoneb 3 Mg/0.5 Mg (3 Ml) Ud) 3 ml IH [id number] [facility] Last Admin: 10/14/16 23:15 Dose: 3 ml Atorvastatin Calcium (Lipitor) 10 mg PO DIN [facility] Last Admin: 10/14/16 17:43 Dose: 10 mg Budesonide (Pulmicort Respules) 1 mg IH [id number] [facility] Last Admin: 10/14/16 19:31 Dose: 1 mg Diltiazem HCl (Cardizem Cd) 120 mg PO DAILY [facility] Last Admin: 10/14/16 17:41 Dose: 120 mg Diphenhydramine HCl (Benadryl) 25 mg PO HS PRN PRN Reason: Insomnia Last Admin: 10/14/16 22:03 Dose: 25 mg Glyburide (Micronase) 5 mg PO BID [facility] Last Admin: 10/14/16 17:43 Dose: 5 mg Heparin Sodium (Porcine) (Heparin) 5,000 units SC Q12 [facility] PRN Reason: Protocol Last Admin: 10/14/16 22:01 Dose: 5,000 units Hydralazine HCl (Apresoline) 10 mg IVP Q6 [facility] Last Admin: 10/14/16 17:38 Dose: 10 mg Hydromorphone HCl (Dilaudid) 0.5 mg IVP Q4H PRN PRN Reason: Pain, moderate (4-7) Last Admin: 10/14/16 13:43 Dose: 0.5 mg Metronidazole (Flagyl) 100 mls @ 100 mls/hr IVPB Q8 [facility] PRN Reason: Protocol Last Admin: 10/14/16 22:01 Dose: 100 mls/hr Cefepime HCl (Maxipime 1gm) 100 mls @ 100 mls/hr IVPB Q12 [facility] PRN Reason: Protocol Last Admin: 10/14/16 22:02 Dose: 100 mls/hr Sodium Bicarbonate 75 meq/ (Sodium Chloride) 1,075 mls @ 100 mls/hr IV .[id number] [facility] Last Admin: 10/14/16 05:34 Dose: 100 mls/hr Insulin Human Regular (Humulin R Med) 0 units SC ACHS [facility] PRN Reason: Protocol Last Admin: 10/14/16 22:03 Dose: Not Given Ondansetron HCl (Zofran Inj) 4 mg IVP Q4 PRN PRN Reason: Nausea/Vomiting Last Admin: 10/11/16 12:30 Dose: 4 mg Pantoprazole Sodium (Protonix Ec Tab) 40 mg PO ACB [facility] Last Admin: 10/14/16 08:44 Dose: 40 mg Warfarin Sodium (Coumadin) 2 mg PO 1800 [facility] PRN Reason: Protocol Last Admin: 10/14/16 17:42 Dose: 2 mg - Labs Labs: 10/14/16 06:00 10/14/16 06:00 PT 18.7 Seconds (9.9-11.8) H 10/14/16 08:20 INR 1.73 (0.93-1.08) H 10/14/16 08:20 APTT 38.0 Seconds (23.7-30.8) H 10/14/16 08:20 - Constitutional Appears: No Acute Distress - Head Exam Head Exam: ATRAUMATIC, NORMOCEPHALIC - Eye Exam Eye Exam: EOMI, Normal appearance Pupil Exam: NORMAL ACCOMODATION - ENT Exam ENT Exam: Mucous Membranes Moist - Respiratory Exam Respiratory Exam: Rhonchi. absent: Rales, Wheezes - Cardiovascular Exam Cardiovascular Exam: REGULAR RHYTHM, +S1, +S2. absent: Murmur - Neurological Exam Neurological Exam: Alert, Awake, Oriented x3 - Psychiatric Exam Psychiatric exam: Anxious, Normal Affect, Normal Mood - Skin Skin Exam: Dry, Warm Assessment and Plan - Assessment and Plan (Free Text) Plan: Atelactaisis. Duoneb CXR no need for ativan if pt cannot tolerate bipap, continue O2 via nasal cannula. Continue observe VS and POx <Wayne Tamayo - Last Filed: 10/15/16 04:50> Objective - Vital Signs/Intake and Output Vital Signs (last 24 hours): Temp Pulse Resp BP Pulse Ox 98.3 F 91 H 18 156/78 H 95 10/15/16 00:01 10/15/16 00:01 10/15/16 00:01 10/15/16 00:28 10/15/16 00:01 Intake and Output: 10/14/16 10/15/16 18:59 06:59 Intake Total 240 Output Total 650 Balance -410 - Medications Medications: Current Medications Acetaminophen (Tylenol 325mg Tab) 650 mg PO Q6H PRN PRN Reason: Fever >100.4 F Albuterol/Ipratropium (Duoneb 3 Mg/0.5 Mg (3 Ml) Ud) 3 ml IH [id number] [facility] Last Admin: 10/14/16 23:15 Dose: 3 ml Atorvastatin Calcium (Lipitor) 10 mg PO DIN [facility] Last Admin: 10/14/16 17:43 Dose: 10 mg Budesonide (Pulmicort Respules) 1 mg IH [id number] [facility] Last Admin: 10/14/16 19:31 Dose: 1 mg Diltiazem HCl (Cardizem Cd) 120 mg PO DAILY [facility] Last Admin: 10/14/16 17:41 Dose: 120 mg Diphenhydramine HCl (Benadryl) 25 mg PO HS PRN PRN Reason: Insomnia Last Admin: 10/14/16 22:03 Dose: 25 mg Glyburide (Micronase) 5 mg PO BID [facility] Last Admin: 10/14/16 17:43 Dose: 5 mg Heparin Sodium (Porcine) (Heparin) 5,000 units SC Q12 [facility] PRN Reason: Protocol Last Admin: 10/14/16 22:01 Dose: 5,000 units Hydralazine HCl (Apresoline) 10 mg IVP Q6 [facility] Last Admin: 10/15/16 00:28 Dose: Not Given Hydromorphone HCl (Dilaudid) 0.5 mg IVP Q4H PRN PRN Reason: Pain, moderate (4-7) Last Admin: 10/14/16 13:43 Dose: 0.5 mg Metronidazole (Flagyl) 100 mls @ 100 mls/hr IVPB Q8 [facility] PRN Reason: Protocol Last Admin: 10/14/16 22:01 Dose: 100 mls/hr Cefepime HCl (Maxipime 1gm) 100 mls @ 100 mls/hr IVPB Q12 [facility] PRN Reason: Protocol Last Admin: 10/14/16 22:02 Dose: 100 mls/hr Sodium Bicarbonate 75 meq/ (Sodium Chloride) 1,075 mls @ 100 mls/hr IV .[id number] [facility] Last Admin: 10/14/16 05:34 Dose: 100 mls/hr Insulin Human Regular (Humulin R Med) 0 units SC ACHS [facility] PRN Reason: Protocol Last Admin: 10/14/16 22:03 Dose: Not Given Ondansetron HCl (Zofran Inj) 4 mg IVP Q4 PRN PRN Reason: Nausea/Vomiting Last Admin: 10/11/16 12:30 Dose: 4 mg Pantoprazole Sodium (Protonix Ec Tab) 40 mg PO ACB [facility] Last Admin: 10/14/16 08:44 Dose: 40 mg Warfarin Sodium (Coumadin) 2 mg PO 1800 [facility] PRN Reason: Protocol Last Admin: 10/14/16 17:42 Dose: 2 mg - Labs Labs: 10/14/16 06:00 10/14/16 06:00 PT 18.7 Seconds (9.9-11.8) H 10/14/16 08:20 INR 1.73 (0.93-1.08) H 10/14/16 08:20 APTT 38.0 Seconds (23.7-30.8) H 10/14/16 08:20 Attending/Attestation - Attestation I have personally seen and examined this patient.: No I have fully participated in the care of the patient.: No I have reviewed all pertinent clinical information, including history, physical exam and plan: Yes
[2016-10-15] MEDS ORDERED: Albuterol-Ipratrop 3 mg / 0.5 (3 ml) UD IH STA (00:13)
[2016-10-15] MEDS: Albuterol-Ipratrop 3 mg / 0.5 (3 ml) UD IH SCH ×5 (05:52→19:30)
[2016-10-15] MEDS: metroNIDAZOLE IV 500 mg/100 ml 100 ML IVPB SCH ×2 (06:15→13:51)
[2016-10-15 06:25] VITALS: O2SAT 96
--- NOTE | 2016-10-15 07:49 | RAD ---
HISTORY: rhonchi COMPARISON: Comparison chest 10/14/2016 theNo prior. FINDINGS: LUNGS: Poor inspiration with low lung volumes, mild crowded bronchovascular markings and mild bibasilar atelectasis. . The interstitial markings are also increased. Rule out mild pulmonary vascular congestive changes. Questionable small bilateral effusions. PLEURA: No pneumothorax apparent. CARDIOVASCULAR: Marked cardiomegaly. OSSEOUS STRUCTURES: No significant abnormalities. VISUALIZED UPPER ABDOMEN: Normal. OTHER FINDINGS: None. IMPRESSION: Poor inspiration with low lung volumes, mild crowded bronchovascular markings and mild bibasilar atelectasis. . The interstitial markings are also increased. Rule out mild pulmonary vascular congestive changes. Questionable small bilateral effusions.
[2016-10-15] MEDS: Budesonide 0.5 mg/2 ml Inhal Susp UD IH SCH ×2 (07:55→19:30)
[2016-10-15] MEDS: Insulin Reg-MEDIUM-Coverage SC SCH ×3 (08:18→18:21)
[2016-10-15] MEDS: Pantoprazole 40 mg EC Tab PO SCH (08:19)
--- NOTE | 2016-10-15 10:18 | RAD ---
HISTORY: vomiting/abdominal distention COMPARISON: CT abdomen and pelvis 10/10/2016 FINDINGS: BOWEL: There is gas seen throughout the small large bowel loops and stomach. The small bowel loops are mildly distended an a ileus is believe most likely. Prior CT referenced findings consistent with an acute appendicitis. BONES: Normal. OTHER FINDINGS: There is probably a drain over the right iliac bone right lower abdomen IMPRESSION: Findings consistent with ileus. Correlate clinically.
[2016-10-15] MEDS: diltiaZEM 120 mg/24 Hours CD Cap PO SCH (11:04)
[2016-10-15] MEDS: Cefepime 1gm in NS 100ml 100 ML IVPB SCH (11:13)
--- NOTE | 2016-10-15 11:22 | CON ---
DATE: 10/15/2016 HISTORY OF PRESENT ILLNESS: Shortly, the patient is a 76-year-old male. The patient was a dmitted on the medical floor for evaluation of abdominal pain. The patient had appendectomy and debr idement of abscess. Psych consult was called for evaluation of possible depressive symptoms as well as anxiety. The patient was seen and examined. Collaterals were obtained from the patient's son, Abner, who was next to the patient. The patient gave permission to talk to his son and willing to be interviewed b y this food writer in front of his son. The patient said that he has a lot of medical issues, and he is q uite aware of what kind of surgery he had. The patient reported that he is constantly in pain - that is why he wants to . The patient adamantly denied thoughts of killing himself or others, but he is tired of pain, and he also complained of insomnia because of the pain and being in the hospital. The patient denied hearing voices, denied seeing things, denied paranoid ideations, and the patient d enied using drugs. The patient lives independently and has good support from his family. The patien t denied previous psychiatric history. Denied being on any psychotropic medications before and denie d suicidal attempts before. Collaterals from the patient's son, Abner, obtained. The patient's son said that the patient is always saying that he wants to , and he has some dark humor, but at the same time, this is no ____ deviation from the patient's mental status, and this is usually how the pa tient expressed the way he feels and that he is in pain. From the son's perspective, this is normal reaction for his father, and these statements are not new for his father. VITAL SIGNS: Reviewed. Temperature 97.5. Pulse is 88, blood pressure 145/87, respirations 18. Oxy gen saturation is 96. MEDICATIONS: Reviewed. Tylenol, DuoNeb, Lipitor, Pulmicort, cefepime, Cardizem, Benadryl 25 mg ____ Glyburide, heparin, hydralazine, Dilaudid 0.5 mg IV push q. 4 hours as needed, insulin, Ativan 0.5 m g IV push at the nighttime as needed for insomnia because the patient was not able to swallow the pil ls, and as per the patient and his son, the patient spit it out. Flagyl, Zofran, Protonix, and Couma din. LABORATORY DATA: Reviewed. WBC cells 11.5 yesterday. There are no new labs for today. The patient 's chemistry: Potassium 3.5 - it was from yesterday. BUN and creatinine 83 and 3.6. Urinalysis lauren wed leukocyte esterase small, as well as urine blood large, and protein 30 which is high. Reports we re reviewed. Abdominal x-ray was done today, and chest x-ray was done, but there is no result back yet. Abdominal x-ray: There is probably a drain over the right iliac bone, right lower abdomen, and findi ngs consistent with ____ clinically. As per nursing staff report, the patient at times could be brunilda nding, but there are no acute issues. There is no agitation or aggression. MENTAL STATUS EXAMINATION: The patient presented to be alert, some sort of anxiety. The patient was short of breath, but was able to talk in full sentences. The patient's eye contact was fair. Speec h was underproductive. Mood described as "I'm tired. I want to ." Affect was constricted. Thou ght process was coherent and goal directed. Thought content: The patient denied visual, auditory, o r tactile hallucinations. Denied paranoid ideations. The patient denied thoughts of harming himself or others, denied intent or plan. The patient made it clear that he is in pain, and that is why he wants to , but adamantly denied any intent or plan to kill himself. Insight and judgment are leeroy r. Impulses are well-controlled. IMPRESSION: Rule out mood disorder due to general medical condition. Rule out anxiety due to genera l medical condition. The patient complained of insomnia. The patient has a lot of medical issues in cluding day 4 status post open appendectomy and debridement of abscess - drain in place. The patient also has history of diabetes, gastritis, peripheral neuropathy, foot drop, atrial fibrillation, dive rticulosis, hyperlipidemia, hypertension, prostate cancer. Also ___ cecal arteriovenous malformatio ns. Also the patient also has a history of chronic kidney disease. See medical team for more detail ed information. PLAN: Continue current management. This food writer would implement Ativan 0.5 mg at the nighttime as ne eded for insomnia because the patient complained of not sleeping for the past 4-5 days. The patient' s symptoms could be related to the medical issues, as well as depression and anxiety due to general m edical condition. The patient's family is at bedside. This food writer will follow up and advise fermín tejeda. There are no acute issues going on from the psychiatric standpoint, and this food writer truly kendall polanco if medical issues will be resolving, the patient will start feeling better. We will follow up a nd advise accordingly. Thank you very much for letting me participate in the care of your patient. Anusha Alcocer MD cc: [id number] TT: 10/15/2016 11:22:28 Confirmation # [id number] Dictation # [id number]
[2016-10-15 11:49] VITALS: RESP 20
--- NOTE | 2016-10-15 11:50 | RAD ---
HISTORY: pneumonia COMPARISON: No prior. FINDINGS: LUNGS: Right basilar atelectasis with questionable right-sided effusion. PLEURA: No pneumothorax apparent. CARDIOVASCULAR: Cardiomegaly. OSSEOUS STRUCTURES: No significant abnormalities. VISUALIZED UPPER ABDOMEN: Evidence of Chilaiditi syndrome/ bowel interposition OTHER FINDINGS: None. IMPRESSION: Right lower lobe atelectasis with questionable small right effusion
--- NOTE | 2016-10-15 12:36 | CP.PCM.PN ---
Subjective - Date & Time of Evaluation Date of Evaluation: 10/15/16 Time of Evaluation: 07:13 - Subjective Subjective: Pt seen and examined. Pt reports that he still has moderate lower abdominal pain. Pt reports that he is passing gas but has not had a bowel movement. Pt also reports slight shortness of breath. He reports that he vomited once this morning. Pt denies fever, chills, chest pain, diarrhea. Objective - Vital Signs/Intake and Output Vital Signs (last 24 hours): Temp Pulse Resp BP Pulse Ox 97.2 F L 75 20 172/84 H 96 10/15/16 11:48 10/15/16 11:48 10/15/16 11:48 10/15/16 11:48 10/15/16 06:00 Intake and Output: 10/15/16 10/15/16 06:59 18:59 Intake Total 1560 Output Total 1270 Balance 290 - Medications Medications: Current Medications Acetaminophen (Tylenol 325mg Tab) 650 mg PO Q6H PRN PRN Reason: Fever >100.4 F Albuterol/Ipratropium (Duoneb 3 Mg/0.5 Mg (3 Ml) Ud) 3 ml [facility] [id number] [facility] Last Admin: 10/15/16 11:09 Dose: 3 ml Atorvastatin Calcium (Lipitor) 10 mg PO DIN [facility] Last Admin: 10/14/16 17:43 Dose: 10 mg Budesonide (Pulmicort Respules) 1 mg [facility] [id number] [facility] Last Admin: 10/15/16 07:55 Dose: 1 mg Diltiazem HCl (Cardizem Cd) 120 mg PO DAILY [facility] Last Admin: 10/15/16 11:04 Dose: 120 mg Diphenhydramine HCl (Benadryl) 25 mg PO HS PRN PRN Reason: Insomnia Last Admin: 10/14/16 22:03 Dose: 25 mg Glyburide (Micronase) 5 mg PO BID [facility] Last Admin: 10/15/16 11:13 Dose: 5 mg Heparin Sodium (Porcine) (Heparin) 5,000 units SC Q12 [facility] PRN Reason: Protocol Last Admin: 10/15/16 11:04 Dose: 5,000 units Hydralazine HCl (Apresoline) 10 mg IVP Q6 [facility] Last Admin: 10/15/16 06:14 Dose: Not Given Hydromorphone HCl (Dilaudid) 0.5 mg IVP Q4H PRN PRN Reason: Pain, moderate (4-7) Last Admin: 10/14/16 13:43 Dose: 0.5 mg Metronidazole (Flagyl) 100 mls @ 100 mls/hr IVPB Q8 [facility] PRN Reason: Protocol Last Admin: 10/15/16 06:15 Dose: 100 mls/hr Cefepime HCl (Maxipime 1gm) 100 mls @ 100 mls/hr IVPB Q12 [facility] PRN Reason: Protocol Last Admin: 10/15/16 11:13 Dose: 100 mls/hr Insulin Human Regular (Humulin R Med) 0 units SC ACHS [facility] PRN Reason: Protocol Last Admin: 10/15/16 08:18 Dose: 1 units Lorazepam (Ativan) 0.5 mg IVP HS PRN; Protocol PRN Reason: Insomnia Ondansetron HCl (Zofran Inj) 4 mg IVP Q4 PRN PRN Reason: Nausea/Vomiting Last Admin: 10/11/16 12:30 Dose: 4 mg Pantoprazole Sodium (Protonix Ec Tab) 40 mg PO ACB [facility] Last Admin: 10/15/16 08:19 Dose: 40 mg Warfarin Sodium (Coumadin) 2 mg PO 1800 [facility] PRN Reason: Protocol Last Admin: 10/14/16 17:42 Dose: 2 mg - Labs Labs: 10/14/16 06:00 10/14/16 06:00 PT 18.7 Seconds (9.9-11.8) H 10/14/16 08:20 INR 1.73 (0.93-1.08) H 10/14/16 08:20 APTT 38.0 Seconds (23.7-30.8) H 10/14/16 08:20 - Constitutional Appears: No Acute Distress - Head Exam Head Exam: ATRAUMATIC, NORMOCEPHALIC - Eye Exam Eye Exam: EOMI, PERRL - ENT Exam ENT Exam: Mucous Membranes Moist. absent: Mucous Membranes Dry - Neck Exam Neck Exam: Full ROM. absent: Lymphadenopathy - Respiratory Exam Respiratory Exam: Rhonchi. absent: Rales - Cardiovascular Exam Cardiovascular Exam: +S1, +S2. absent: Gallop, Rubs - GI/Abdominal Exam GI & Abdominal Exam: Soft, Tenderness. absent: Distended, Guarding, Normal Bowel Sounds - Extremities Exam Extremities Exam: Full ROM. absent: Pedal Edema - Neurological Exam Neurological Exam: Alert, Awake, Oriented x3 - Psychiatric Exam Psychiatric exam: Agitated - Skin Skin Exam: Normal Color, Warm Assessment and Plan - Assessment and Plan (Free Text) Assessment: 10/15/16: Pt and family at bedside are requesting the pt to be transferred to [facility] ([facility] Risks of transfer explained to the pt and family and family still requested transfer. EMTALA form signed. Pt pending transfer to [facility] once bed becomes available. Acute Appendicitis: Day 4 s/p open appendectomy and debridement of abscess; drain in place with serosanguinous fluid Pt refused blood draw this morning, thus there were no morning labs Abd/Pelvis CT - acute appendicitis, small bowel dilatation most likely due to ileus (please see full report) Diet advances to liquids as per surgery Maxipime 1 gm IV Q12h as per ID Flagyl IV q8h Wound cultures showing E.Coli NS NaHCO3 IVF discontinued as per nephrology, Dr. Jin CXR - right lower lobe atelectasis, small right pleural effusion, chilaiditi sign Zofran 4 mg IV q4h prn for nausea Dilaudid 0.5 mg IVP q4h prn for pain Tylenol 650 mg po q6h prn for fever > 100.4 Possible Pneumonia: CXR - right lower lobe atelectasis, small right pleural effusion Duonebs q4h for wheezing Maxipime 1 gm IV Q12h as per ID Flagyl IV q8h Coagulopathy: INR not collected due to pt refusing blood draw Coumadin 2 mg po qd Acute on Chronic Kidney Injury: Creatinine not collected due to pt refusing blood draw Anemia: CBC uncollected due to pt refusing blood draw Diabetes Mellitus: Oral medications held Regular insulin sliding scale Glyburide 5 mg po bid Hx of atrial fibrillation: EKG - atrial fibrillation, right bundle branch block Cardizem 120 mg po qd Dyslipidemia: Lipitor 10 mg po din HTN: Losartan 50 mg po qd Insomnia/Anxiety/Depression: Pt very unpleasant Ativan 0.5 mg po Prophylactic Measures: GI: Protonix 40 mg IV qd DVT: SCDs, Heparin 5000 units sc q12h
--- NOTE | 2016-10-15 13:12 | CP.PCM.PN ---
Subjective - Date & Time of Evaluation Date of Evaluation: 10/15/16 Time of Evaluation: 13:08 - Subjective Subjective: Surgery: Dr. Jaramillo Pt seen and examined. Pt is complaining of abd pain. He reports intermittent nausea, 1 episode of emesis. He states that he has been unable to sleep at night. He denies F/C. Objective - Vital Signs/Intake and Output Vital Signs (last 24 hours): Temp Pulse Resp BP Pulse Ox 97.2 F L 75 20 160/72 H 96 10/15/16 11:48 10/15/16 11:48 10/15/16 11:48 10/15/16 12:40 10/15/16 06:00 Intake and Output: 10/15/16 10/15/16 06:59 18:59 Intake Total 1560 Output Total 1270 Balance 290 - Medications Medications: Current Medications Acetaminophen (Tylenol 325mg Tab) 650 mg PO Q6H PRN PRN Reason: Fever >100.4 F Albuterol/Ipratropium (Duoneb 3 Mg/0.5 Mg (3 Ml) Ud) 3 ml IH [id number] [facility] Last Admin: 10/15/16 11:09 Dose: 3 ml Atorvastatin Calcium (Lipitor) 10 mg PO DIN [facility] Last Admin: 10/14/16 17:43 Dose: 10 mg Budesonide (Pulmicort Respules) 1 mg IH [id number] [facility] Last Admin: 10/15/16 07:55 Dose: 1 mg Diltiazem HCl (Cardizem Cd) 120 mg PO DAILY [facility] Last Admin: 10/15/16 11:04 Dose: 120 mg Glyburide (Micronase) 5 mg PO BID [facility] Last Admin: 10/15/16 11:13 Dose: 5 mg Heparin Sodium (Porcine) (Heparin) 5,000 units SC Q12 [facility] PRN Reason: Protocol Last Admin: 10/15/16 11:04 Dose: 5,000 units Hydralazine HCl (Apresoline) 10 mg IVP Q6 [facility] Last Admin: 10/15/16 12:40 Dose: Not Given Metronidazole (Flagyl) 100 mls @ 100 mls/hr IVPB Q8 [facility] PRN Reason: Protocol Last Admin: 10/15/16 06:15 Dose: 100 mls/hr Cefepime HCl (Maxipime 1gm) 100 mls @ 100 mls/hr IVPB Q12 [facility] PRN Reason: Protocol Last Admin: 10/15/16 11:13 Dose: 100 mls/hr Ibuprofen (Motrin Tab) 400 mg PO Q6H PRN PRN Reason: Pain, moderate (4-7) Insulin Human Regular (Humulin R Med) 0 units SC ACHS [facility] PRN Reason: Protocol Last Admin: 10/15/16 12:39 Dose: 3 units Lorazepam (Ativan) 0.5 mg IVP HS PRN; Protocol PRN Reason: Insomnia Ondansetron HCl (Zofran Inj) 4 mg IVP Q4 PRN PRN Reason: Nausea/Vomiting Last Admin: 10/11/16 12:30 Dose: 4 mg Pantoprazole Sodium (Protonix Ec Tab) 40 mg PO ACB [facility] Last Admin: 10/15/16 08:19 Dose: 40 mg Warfarin Sodium (Coumadin) 2 mg PO 1800 [facility] PRN Reason: Protocol Last Admin: 10/14/16 17:42 Dose: 2 mg - Labs Labs: 10/14/16 06:00 10/14/16 06:00 PT 18.7 Seconds (9.9-11.8) H 10/14/16 08:20 INR 1.73 (0.93-1.08) H 10/14/16 08:20 APTT 38.0 Seconds (23.7-30.8) H 10/14/16 08:20 - Constitutional Appears: Non-toxic, No Acute Distress - Head Exam Head Exam: ATRAUMATIC, NORMOCEPHALIC - Eye Exam Eye Exam: EOMI. absent: Scleral icterus - ENT Exam ENT Exam: Mucous Membranes Moist - Neck Exam Neck Exam: Full ROM - Respiratory Exam Respiratory Exam: NORMAL BREATHING PATTERN. absent: Accessory Muscle Use, Respiratory Distress - GI/Abdominal Exam GI & Abdominal Exam: Distended, Soft. absent: Guarding, Rigid, Tenderness, Mass , Rebound Additional comments: midline incision C/D/I, chelsea in place, scant serous drainage, RLQ mago in place serosang output - Extremities Exam Extremities Exam: absent: Calf Tenderness, Pedal Edema - Neurological Exam Neurological Exam: Alert, Awake, Oriented x3 - Psychiatric Exam Psychiatric exam: Normal Affect, Normal Mood - Skin Skin Exam: Dry, Normal Color, Warm Assessment and Plan - Assessment and Plan (Free Text) Assessment: 76M w. appendicitis, s/p open appy, POD#4 -D/C narcotics -ON-Q increased for pain, motrin and tylenol for pain -avoid benadryl -per psych, ativan for sleep -lomax to be managed by urology -c/w CLD and PPN -encourage OOB and IS use -case d/w Dr. Clint Barnes PGY2
[2016-10-15] MEDS ORDERED: HYDROmorphone 0.5 mg/0.5 ml ISec IVP PRN ×2 (14:02→14:41)
--- NOTE | 2016-10-15 14:25 | PN ---
DATE: 10/15/2016 Seen and examined at the bedside earlier today. The daughter was at the bedside. The patient restin g in bed. No reports of nausea or vomiting. The patient does complain of abdominal pain. The patie nt is reported to be tolerating his liquid diet. Positive passing gas. No reports of any. No fever , chills, shortness of breath or chest pain. VITAL SIGNS: Temperature is 97.5, blood pressure 145/87, pulse 88, respirations 18, 96 nasal cannula . LABORATORY DATA: No new labs are noted for today. Labs from 10/14, sodium 140, K is 3.5. LFTs are w ithin normal limits. ____ is 11.5. WBC count has improved. H and H is 9.7 and 28.7. Platelets are 454. PHYSICAL EXAMINATION: HEENT: Sclera is anicteric. NECK: Supple. CARDIAC: S1, S2. LUNGS: Sounds are decreased breath sounds but good air entry, no rales or wheeze. ABDOMEN: With bowel sounds, soft. Positive bowel sounds. Abdominal dressing is dry and intact with SUE drain. ASSESSMENT: This is a 76-year-old patient status post open appendectomy. The patient with history o f atrial fibrillation, on Coumadin; acute kidney injury on chronic kidney disease, which is improving , patient on intravenous hydration; history of peptic ulcer disease, colon polyps and arteriovenous m alformation. PLAN: Monitor H and H. It has been steady. The patient is on Coumadin. On GI prophylaxis, Protoni x. He is on IV antibiotics of Flagyl. On DVT prophylaxis, heparin. Also on IV antibiotic cefepime. The patient is on clear liquids as per surgery. Seen and examined with Dr. Goyal. Shanti RAMSEY cc: [id number] TT: 10/15/2016 13:12:51 Confirmation # [id number] Dictation # [id number]
--- NOTE | 2016-10-15 15:21 | PN ---
DATE: 10/15/2016 The patient seen and examined at bedside. He is comfortable. He talks full sentences. He appears a little bit more subjectively awake and comfortable. He , however, refused BiPAP last night and refused ABG. PHYSICAL EXAMINATION: VITAL SIGNS: Temperature 97.2, blood pressure 160/72, respiratory rate 20, heart rate 75, oxygen saturation 96% on room air. HEAD AND NECK: Atraumatic. LUNGS: Clear to auscultation (the patient was wheezing yesterday, but today his auscultated picture is clear). HEART: Regular rate and rhythm. S1, S2 normal. ABDOMEN: Soft, nontender, nondistended. SUE discharge is clear, serous and minimal. Q ball is in place. MUSCULOSKELETAL: No C/C/E. NEUROLOGIC: The patient moves all extremities spontaneously. SKIN: Moist. PSYCHIATRIC: The patient is alert and oriented x 3. Psychiatry consult is appreciated and noted. LABORATORIES: WBC 11.5, down from 16, hemoglobin 9.7, platelet count 454. Sodium 140, potassium 3.5, chloride 105, carbon dioxide 19, BUN 83, creatinine 3.6, glucose 211. INR 1.73. MEDICATIONS: Hydralazine every 6 hours, Ativan p.r.n., Colace, Coumadin, Dilaudid p.r.n., Dulcolax, DuoNeb every 4 hours, Flagyl, heparin 5000 subQ q. 12 , Lipitor, cefepime, glyburide, Protonix, budesonide, Reglan, Tylenol p.r.n., Zofran p.r.n. Chest x-ray showed low lung volumes, right lower lobe atelectasis. ASSESSMENT AND PLAN: This is a 76-year-old gentleman, status post exploratory laparotomy with appendectomy, who has been followed by pulmonary consult for some wheezing and shortness of breath. The patient is a long time smoker, however, quit about 2 years ago and may have potentially had undiagnosed chronic obstructive pulmonary disease. At present time, I would reaffirm need for BiPAP at night, chest physiotherapy, incentive spirometry, out of bed to chair and physical therapy. Pain appears to be under control. I would also continue with inhaled corticosteroids and bronchodilators. Would recommend to target euvolemia, euglycemia, normothermia and oxygen saturation more than 90%. I will give dose of methylnaltrexone (Relistor) to expedite resolution of the ileus that might be at least partially related to opiates that patient is getting for pain (last dose reportedly patient received about half an hour ago) . Maintain tasha carrillo. Sukumar Sky MD cc: [id number] TT: 10/15/2016 15:21:41 Confirmation # [id number] Dictation # [id number] [id number]
--- NOTE | 2016-10-15 15:31 | PN ---
DATE: 10/15/2016 The patient denies any chest pain or palpitation. He is a little upset with the entire family for th e fact that he is not being fed, and when I tried to inquire about passing gas or a bowel movement, I had a sarcastic, and at times, insulting response from the patient's family at the bedside. VITAL SIGNS: Blood pressure 160/72, heart rate 75, temperature 97.2, respirations 20. HENT: Pale conjunctivae. CHEST: Minimal rhonchi. HEART: S1, S2 regular. ABDOMEN: Absent bowel sounds. EXTREMITIES: No edema. INR yesterday was 1.73. ASSESSMENT: 1. Status post open appendectomy for ruptured appendicitis. 2. Chronic atrial fibrillation. 3. Peripheral neuropathy. 4. Ileus. RECOMMENDATIONS: Continue p.r.n. IV hydralazine at 10 mg q. 6 hours, Continue heparin at 5000 units subcutaneously q. 12 hours, Lipitor 10 mg once a day, Cardizem CD at 120 mg once a day. May resume C oumadin with 3 mg today if cleared by the surgeon. Anderson Smith MD cc: [id number] TT: 10/15/2016 15:31:23 Confirmation # [id number] Dictation # [id number] jn
[2016-10-15 19:19] VITALS: BP 135/86; PULSE 80; TEMP 97.3
--- NOTE | 2016-10-15 21:44 | CP.PCM.PN ---
Subjective - Date & Time of Evaluation Date of Evaluation: 10/15/16 Time of Evaluation: 16:30 - Subjective Subjective: Infectious Disease Follow Up: October 15, 2016 76 yo male with severe abdominal pain for the past 5 days before his family convinced him to come to the hospital. The patient was found to have appendicitis. Laproscopic appendectomy was attempted but failed when the conditions in the abdomen were noted. The patient was converted into an open appendectomy where he was found to have an ruptured appendix with inflammation of the intestines and adhesion of the tissues within the abdominal cavity. Continuing on IV antibiotics for perforated appendix, abdominal sepsis. Case discussed with Surgery. Patient feeling more comfortable today. Cultures showing light growth of gram negative rods from intraoperative cultures. Identified as E. coli. Doing relatively well given recent open laparotomy for appendectomy. Objective - Vital Signs/Intake and Output Vital Signs (last 24 hours): Temp Pulse Resp BP Pulse Ox 97.3 F L 80 20 135/86 96 10/15/16 18:00 10/15/16 18:00 10/15/16 18:00 10/15/16 18:00 10/15/16 06:00 Intake and Output: 10/15/16 10/16/16 18:59 06:59 Intake Total 360 Output Total 1300 Balance -940 - Medications Medications: Current Medications Acetaminophen (Tylenol 325mg Tab) 650 mg PO Q6H PRN PRN Reason: Fever >100.4 F Albuterol/Ipratropium (Duoneb 3 Mg/0.5 Mg (3 Ml) Ud) 3 ml IH [id number] [facility] Last Admin: 10/15/16 19:30 Dose: 3 ml Atorvastatin Calcium (Lipitor) 10 mg PO DIN [facility] Last Admin: 10/15/16 18:22 Dose: 10 mg Budesonide (Pulmicort Respules) 1 mg IH [id number] [facility] Last Admin: 10/15/16 19:30 Dose: 1 mg Diltiazem HCl (Cardizem Cd) 120 mg PO DAILY [facility] Last Admin: 10/15/16 11:04 Dose: 120 mg Docusate Sodium (Colace) 100 mg PO TID [facility] Last Admin: 10/15/16 18:22 Dose: 100 mg Glyburide (Micronase) 5 mg PO BID [facility] Last Admin: 10/15/16 18:21 Dose: 5 mg Heparin Sodium (Porcine) (Heparin) 5,000 units SC Q12 [facility] PRN Reason: Protocol Last Admin: 10/15/16 11:04 Dose: 5,000 units Hydralazine HCl (Apresoline) 10 mg IVP Q6 [facility] Last Admin: 10/15/16 18:16 Dose: Not Given Hydromorphone HCl (Dilaudid) 0.5 mg IVP Q4H PRN PRN Reason: Pain, moderate (4-7) Metronidazole (Flagyl) 100 mls @ 100 mls/hr IVPB Q8 [facility] PRN Reason: Protocol Last Admin: 10/15/16 13:51 Dose: 100 mls/hr Cefepime HCl (Maxipime 1gm) 100 mls @ 100 mls/hr IVPB Q12 [facility] PRN Reason: Protocol Last Admin: 10/15/16 11:13 Dose: 100 mls/hr Insulin Human Regular (Humulin R Med) 0 units SC ACHS [facility] PRN Reason: Protocol Last Admin: 10/15/16 18:21 Dose: 1 units Lorazepam (Ativan) 0.5 mg IVP HS PRN; Protocol PRN Reason: Insomnia Metoclopramide HCl (Reglan) 10 mg IVP Q6 [facility] Last Admin: 10/15/16 18:22 Dose: 10 mg Ondansetron HCl (Zofran Inj) 4 mg IVP Q4 PRN PRN Reason: Nausea/Vomiting Last Admin: 10/11/16 12:30 Dose: 4 mg Pantoprazole Sodium (Protonix Ec Tab) 40 mg PO ACB [facility] Last Admin: 10/15/16 08:19 Dose: 40 mg Warfarin Sodium (Coumadin) 2 mg PO 1800 [facility] PRN Reason: Protocol Last Admin: 10/14/16 17:42 Dose: 2 mg - Labs Labs: 10/14/16 06:00 10/14/16 06:00 PT 18.7 Seconds (9.9-11.8) H 10/14/16 08:20 INR 1.73 (0.93-1.08) H 10/14/16 08:20 APTT 38.0 Seconds (23.7-30.8) H 10/14/16 08:20 - Constitutional Appears: Non-toxic, No Acute Distress - Head Exam Head Exam: ATRAUMATIC, NORMOCEPHALIC - Eye Exam Eye Exam: EOMI, PERRL Pupil Exam: NORMAL ACCOMODATION, PERRL - ENT Exam ENT Exam: Mucous Membranes Moist, Normal External Ear Exam, TM's Normal Bilaterally - Neck Exam Neck Exam: Full ROM, Normal Inspection - Respiratory Exam Respiratory Exam: Clear to Ausculation Bilateral, NORMAL BREATHING PATTERN. absent: Rales, Rhonchi, Wheezes - Cardiovascular Exam Cardiovascular Exam: REGULAR RHYTHM, RRR, +S1, +S2 - GI/Abdominal Exam GI & Abdominal Exam: Distended, Soft, Normal Bowel Sounds. absent: Tenderness Additional comments: s/p abdominal surgery - open laparotomy. - Extremities Exam Extremities Exam: Full ROM, Normal Inspection - Neurological Exam Neurological Exam: Alert, Awake, CN II-XII Intact, Oriented x3 - Psychiatric Exam Psychiatric exam: Normal Affect, Normal Mood - Skin Skin Exam: Intact, Normal Color Additional comments: except for abdominal area. Assessment and Plan - Assessment and Plan (Free Text) Assessment: 76 yo male with abdominal pain found to have ruptured appendix. He required open appendectomy/laparotomy. On Rocephin and Flagyl. Would switch Rocephin to Cefepime for now and continue Flagyl. Supportive care. Await intraoperative cultures. Local wound care. No fevers or leukocytosis during this hospitalization. Overall doing well. No new issues at this time. Mild increase in leukocytosis from 11 to 16 improved back to 11.5 now. Pain management as per surgery. Wound care as per surgery. Family wanted podiatry to evaluate the feet due to previous ulcers. No current ulcerations on the feet now. Supportive care. Noted the patient with mild wheezing and occasional shortness of breath today. Intraoperative cultures showing light gram negative lissa growth. Identified as E. coli. On Cefepime and Flagyl currently. Patient is highly anxious. Family requested transfer to [facility]. Arrangements made. Thank you for allowing me to participate in the care of the patient, we will follow with you.
--- NOTE | 2016-10-16 04:22 | PN ---
DATE: 10/15/2016 SUBJECTIVE: The patient was seen earlier today on telemetry. He continues to complain of nauseousne ss and stated that he had not yet moved his bowels. Of note, he was drinking carbonated beverages de spite being told not to by numerous staff members. He was requesting an increase in his pain medicat ions as well. OBJECTIVE: VITAL SIGNS: Blood pressure was 172/84, heart rate 75, oral temperature is 97.2, respiratory rate is 18. I's and O's were 1320/600. The remainder of the exam was as follows: HEENT: The patient was normocephalic and atraumatic. There was no sinus tenderness. Conjunctivae w ere mildly pale, but they were anicteric. CHEST: Lung stephenson were grossly clear to auscultation. Breath sounds were distant. There were no r ales, rhonchi or wheezing that I could appreciate. CARDIAC: Had a regular rate and rhythm without any rubs or gallops. ABDOMEN: Soft, distended with hypoactive bowel sounds. There is no rebound, guarding or rigidity. EXTREMITIES: Had trace edema. NEUROLOGIC: The patient was nonfocal. SKIN: Intact. VASCULAR: Had no bruits. LABORATORY STUDIES: As follows: White count is 11.5, H and H 9.7/28.7 with a platelet count of 454, 000. There are 85% neutrophils, 6% lymphocytes, 8% monocytes, 1% eosinophil. Sodium is 140, potassi um is low at 3.5, chloride is 105, bicarbonate 19, BUN/creatinine is 83/3.6 with a glucose of 211. C alcium is 8.5, phosphorus is 4.8, magnesium is 2.3. Chest x-ray from today (performed because the jatinder guerra was experiencing some dyspnea) revealed right lower lobe atelectasis with questionable right ef fusion. Abdominal x-ray revealed ileus. IMPRESSION AND PLAN: The patient is a 76-year-old gentleman with history of tobacco and alcohol abus e, type 2 diabetes mellitus that is not controlled and for which he was on oral hypoglycemic agents p rior to admission, hypertension, dyslipidemia, stage III chronic kidney disease with a baseline creat inine in the high 1's, atrial fibrillation, prostate cancer, history of gastrointestinal bleeding whi le on Xarelto in the past, history of esophagitis, gastritis, as well as diverticulosis, and cecal ar teriovenous malformations and hemorrhoids, admitted with abdominal pain, nausea, vomiting and acute k idney injury and found to have appendicitis with perforation and abscess formation for which he under went appendectomy. Hospitalization was complicated also by urinary retention for which the patient h as a Brady catheter inserted. Of note, he was placed on intravenous fluids, which were discontinued after the patient became dyspneic, although chest x-ray did not reveal any evidence of congestive hea rt failure. He has been reinitiated on ibuprofen for analgesia in attempt to wean down his narcotic requirements since these were thought to be contributing to his ileus, however, in the setting of acu te kidney injury, NSAIDs are contraindicated and we will discontinue these. Instead we will need to reinitiate the lowest possible dose of opiate to treat the patient's pain and we will resume Dilaudid 0.5 mg intravenously every 6 hours as needed. In order to help mitigate against factors contributin g to ileus, we will also correct his hypokalemia with 20 mEq of potassium chloride intravenously for 2 doses as well. Chest x-ray has been repeated and since it does not reveal any florid congestive he art failure, the patient does not require standing diuretics. Family is requesting that he be transf erred to [facility] and arrangements are being made. Review of systems, past medical history, social history and family history were all reviewed and ther e were no new changes. Willis Jin MD cc: [id number] TT: 10/16/2016 04:22:16 Confirmation # [id number] Dictation # [id number] myles
--- NOTE | 2016-10-16 16:32 | CP.PCM.PCO ---
Physician Communication Note - Physician Communication Note Physician Communication Note: pt was d/c over night
--- NOTE | 2016-10-16 18:59 | CP.PCM.DIS ---
Provider - Provider Date of Admission: 10/10/16 15:32 Attending physician: Salome Estrada MD Primary care physician: Paris Goyal MD Hospital Course - Lab Results Lab Results: Micro Results 10/11/16 07:30 Other: Please Indicate Gram Stain - Final 10/11/16 07:30 Other: Please Indicate Anaerobic Culture - Final NO ANAEROBES ISOLATED. 10/11/16 07:30 Other: Please Indicate Wound Culture - Final Escherichia Coli Most Recent Lab Values WBC 11.5 10^3/ul (4.5-11.0) H D 10/14/16 06:00 RBC 3.27 10^6/uL (3.5-6.1) L 10/14/16 06:00 Hgb 9.7 gm/dL (14.0-18.0) L 10/14/16 06:00 Hct 28.7 % (42.0-52.0) L 10/14/16 06:00 MCV 87.8 fL (80.0-105.0) 10/14/16 06:00 MCH 29.7 pg (25.0-35.0) 10/14/16 06:00 MCHC 33.8 g/dl (31.0-37.0) 10/14/16 06:00 RDW 14.8 % (11.5-14.5) H 10/14/16 06:00 Plt Count 454 10^3/uL (120.0-450.0) H 10/14/16 06:00 MPV 8.9 fl (7.0-11.0) 10/14/16 06:00 Gran % 84.9 % (50.0-68.0) H 10/14/16 06:00 Lymph % (Auto) 5.5 % (22.0-35.0) L 10/14/16 06:00 Lown[place] % (Auto) 8.0 % (1.0-6.0) H 10/14/16 06:00 Eos % (Auto) 1.4 % (1.5-5.0) L 10/14/16 06:00 Baso % (Auto) 0.2 % (0.0-3.0) 10/14/16 06:00 Gran # 9.76 (1.4-6.5) H 10/14/16 06:00 Lymph # 0.6 (1.2-3.4) L 10/14/16 06:00 [place]owndes # 0.9 (0.1-0.6) H 10/14/16 06:00 Eos # 0.2 (0.0-0.7) 10/14/16 06:00 Baso # 0.02 K/mm3 (0.0-2.0) 10/14/16 06:00 PT 18.7 Seconds (9.9-11.8) H 10/14/16 08:20 INR 1.73 (0.93-1.08) H 10/14/16 08:20 APTT 38.0 Seconds (23.7-30.8) H 10/14/16 08:20 Sodium 140 mmol/L (132-148) 10/14/16 06:00 Potassium 3.5 mmol/L (3.6-5.0) L 10/14/16 06:00 Chloride 105 mmol/L (98-107) 10/14/16 06:00 Carbon Dioxide 19 mmol/L (21-33) L 10/14/16 06:00 Anion Gap 20 (10-20) 10/14/16 06:00 BUN 83 mg/dL (7-21) H 10/14/16 06:00 Creatinine 3.6 mg/dL (0.5-1.4) H 10/14/16 06:00 Est GFR ( Amer) 20 10/14/16 06:00 Est GFR (Non-Af Amer) 17 10/14/16 06:00 POC Glucose (mg/dL) 109 mg/dL (65-110) 10/11/16 11:47 Random Glucose 211 mg/dL (70-110) H 10/14/16 06:00 Calcium 8.5 mg/dL (8.4-10.5) 10/14/16 06:00 Phosphorus 4.8 mg/dL (2.5-4.5) H 10/14/16 06:00 Magnesium 2.3 mg/dL (1.7-2.2) H 10/14/16 06:00 Iron < 10 ug/dL (45-180) L 10/12/16 06:59 TIBC 287 ug/dL (261-462) 10/12/16 06:59 % Saturation Composing Machine Operator/Tender 10/12/16 06:59 Ferritin 101.0 ng/mL 10/12/16 06:59 Total Bilirubin 0.7 mg/dL (0.2-1.3) 10/14/16 06:00 AST 42 U/L (15-59) 10/14/16 06:00 ALT 30 U/L (7-56) 10/14/16 06:00 Alkaline Phosphatase 120 U/L (38-133) 10/14/16 06:00 Lactate Dehydrogenase 558 U/L (333-699) 10/10/16 12:22 Total Creatine Kinase 493 U/L (35-230) H 10/10/16 12:22 CK-MB (CK-2) 8.3 ng/mL (0.0-3.6) H 10/10/16 12:22 CK-MB (CK-2) % 1.7 % (2.5-3.0) L 10/10/16 12:22 Troponin I 0.03 ng/mL D 10/10/16 12:22 Total Protein 6.9 g/dL (5.8-8.3) 10/14/16 06:00 Albumin 3.2 g/dL (3.0-4.8) 10/14/16 06:00 Globulin 3.7 gm/dL 10/14/16 06:00 Albumin/Globulin Ratio 0.9 (1.1-1.8) L 10/14/16 06:00 Prealbumin 8.2 mg/dL (17.6-36.0) L 10/14/16 08:20 Amylase 37 U/L (35-125) 10/10/16 12:22 Lipase 62 U/L (23-300) 10/10/16 12:22 Vitamin B12 628 pg/mL (239-931) 10/12/16 06:59 Folate 11.3 ng/mL 10/12/16 06:59 Urine Color Yellow (YELLOW) 10/14/16 06:20 Urine Appearance Sl cloudy (CLEAR) 10/14/16 06:20 Urine pH 5.5 (4.7-8.0) 10/14/16 06:20 Ur Specific Armstrong 1.025 (1.005-1.035) 10/14/16 06:20 Urine Protein 30 mg/dL (<30 mg/dL) H 10/14/16 06:20 Urine Glucose (UA) Negative mg/dL (NEGATIVE) 10/14/16 06:20 Urine Ketones Trace mg/dL (NEGATIVE) H 10/14/16 06:20 Urine Blood Large (NEGATIVE) H 10/14/16 06:20 Urine Nitrate Negative (NEGATIVE) 10/14/16 06:20 Urine Bilirubin Negative (NEGATIVE) 10/14/16 06:20 Urine Urobilinogen 0.2 E.U./dL (<1 E.U./dL) 10/14/16 06:20 Ur Leukocyte Esterase Small Jason/uL (NEGATIVE) H 10/14/16 06:20 Urine RBC 5 - 10 /hpf (0-2) 10/14/16 06:20 Urine WBC 1 - 3 /hpf (0-6) 10/14/16 06:20 Ur Epithelial Cells 0 - 2 /hpf (0-5) 10/14/16 06:20 Amorphous Sediment Few 10/14/16 06:20 Urine Bacteria Occ (NEG) 10/14/16 06:20 Ur Random Creatinine 97 mg/dL 10/14/16 06:20 Ur Random Sodium 18 meq/L 10/14/16 06:20 Blood Type AB POSITIVE 10/10/16 18:48 Antibody Screen Negative 10/10/16 18:48 BBK History Checked Patient has bt 10/10/16 18:48 Discharge Exam - Head Exam Head Exam: ATRAUMATIC, NORMOCEPHALIC Discharge Plan - Follow Up Plan Condition: SERIOUS Disposition: Trans to Other Acute Care Hosp
== END 2016-10-15 21:52 | disposition short-term general hospital (02) | DRG 339 ==
LOC: ED 11:50 → ERH 15:32 → 5RSO 18:46 → 2RNO 10-11 14:16
PROVIDERS: ADMIT Internal Medicine; ATTEND Internal Medicine
PROC: 30233K1 Transfusion of Nonautologous Frozen Plasma into Peripheral Vein, Percutaneous Approach (ICD-10-PCS; 2016-10-10)
PROC: 0DJD4ZZ Inspection of Lower Intestinal Tract, Percutaneous Endoscopic Approach (ICD-10-PCS; 2016-10-11)
PROC: 0DTJ0ZZ Resection of Appendix, Open Approach (ICD-10-PCS; principal; 2016-10-11 09:30)
PROC: 0T9B70Z Drainage of Bladder with Drainage Device, Via Natural or Artificial Opening (ICD-10-PCS; 2016-10-13)
DX: K35.3 Acute appendicitis with localized peritonitis (principal); N17.9 Acute kidney failure, unspecified; K56.7 Ileus, unspecified; I48.0 Paroxysmal atrial fibrillation; E11.42 Type 2 diabetes mellitus with diabetic polyneuropathy; E11.21 Type 2 diabetes mellitus with diabetic nephropathy; E86.0 Dehydration; E11.65 Type 2 diabetes mellitus with hyperglycemia; I12.9 Hypertensive chronic kidney disease with stage 1 through stage 4 chronic kidney disease, or unspecified chronic kidney disease; F32.9 Major depressive disorder, single episode, unspecified; N18.3 Chronic kidney disease, stage 3 (moderate); I48.2 Chronic atrial fibrillation; E78.5 Hyperlipidemia, unspecified; E87.6 Hypokalemia; I45.10 Unspecified right bundle-branch block; K64.9 Unspecified hemorrhoids; K29.70 Gastritis, unspecified, without bleeding; M21.371 Foot drop, right foot; M21.372 Foot drop, left foot; K55.20 Angiodysplasia of colon without hemorrhage; K57.90 Diverticulosis of intestine, part unspecified, without perforation or abscess without bleeding; D64.9 Anemia, unspecified; I25.10 Atherosclerotic heart disease of native coronary artery without angina pectoris; G47.00 Insomnia, unspecified; F41.9 Anxiety disorder, unspecified; B96.20 Unspecified Escherichia coli [E. coli] as the cause of diseases classified elsewhere; R33.9 Retention of urine, unspecified; Z79.01 Long term (current) use of anticoagulants; Z85.46 Personal history of malignant neoplasm of prostate; Z79.84 Long term (current) use of oral hypoglycemic drugs; Z53.31 Laparoscopic surgical procedure converted to open procedure; Z86.010 Personal history of colon polyps; Z87.891 Personal history of nicotine dependence